=== PATIENT | female | born 2000 | race Caucasian/White ===

== ENCOUNTER 2020-08-28 15:20 | Emergency (ER) | payer MEDICARE, MEDICAID, SELFPAY ==
--- NOTE | ~2020-08-28 | XR_ITS ---
EXAMINATION: XR hand LT min 3V DATE: 08/28/2020 16:05 INDICATION: Pain at the fifth digit radiating up the left arm after punching a wall. TECHNIQUE: Posteroanterior, oblique and lateral views of the left hand were obtained. COMPARISON: None. FINDINGS: Alignment is normal. No fracture. Joint spaces are normal. Soft tissues are unremarkable. IMPRESSION: 1. Negative left hand radiographs. Reviewed, dictated and finalized at location A.
[2020-08-28 15:49] VITALS: BP 135/77; PULSE 91; RESP 20; TEMP 36.6; O2SAT 99
--- NOTE | 2020-08-28 18:00 | ED.UPPEXIN ---
HPI - Extremity Injury (Upper) General Chief Complaint: Extremity Injury, Upper Stated Complaint: left hand injury Time Seen by Provider: 08/28/20 17:20 Source: patient Mode of arrival: ambulatory Limitations: no limitations History of Present Illness HPI narrative: Patient is a 20 year old female who presents with left hand pain. She reports hitting wall instead of another individual last pm. Patient denies other injuries, denies numbness and tingling to hand. Patient has full ROM of hand and full flexion and extension of fingers. She denies taking over the counter medications prior to arrival. MD complaint: injury to: left and hand Related Data Home Medications Medication Instructions Recorded Confirmed No Home Medications 08/28/20 08/28/20 Allergies Allergy/AdvReac Type Severity Reaction Status Date / Time adhesive tape Allergy Rash Verified 08/28/20 17:18 latex Allergy Unknown Verified 08/28/20 17:18 Review of Systems Review of Systems: Narrative: CONSTITUTIONAL: Denies fever, chills, or sweats. EYES: Denies visual changes, redness, or discharge. ENT: Denies rhinorrhea, congestion, sore throat, or otalgia. CARDIOVASCULAR: Denies chest pain, palpitations, or edema. RESPIRATORY: Denies cough or dyspnea. GASTROINTESTINAL: Denies abdominal pain, nausea, vomiting, or diarrhea. GENITOURINARY: Denies dysuria or hematuria. SKIN: Denies rash or itching. MUSCULOSKELETAL: Reports left hand pain NEUROLOGIC: Denies headache, numbness, dizziness, or weakness. PSYCHIATRIC: Denies anxiety or depression. [facility] Past Medical History Medical History No significant past medical history Surgical History Surgical History No significant past surgical history Social History Social History Smoking status: Current every day smoker Tobacco type: cigarettes Alcohol intake: current Alcohol use details: occasional Substance use: current Substance use type: marijuana Living arrangements: with family Exam Narrative: Exam Narrative: GENERAL: Well-appearing, well-nourished, and in no acute distress. HEAD: Normocephalic, atraumatic. EYES: EOMI. No redness or drainage. Conjunctiva are normal. ENT: Mucous membranes pink and moist. Nares clear. No rhinorrhea. TMs normal bilaterally. Throat normal. Uvula midline. NECK: AROM. Supple. No lymphadenopathy. CHEST: No respiratory distress. Clear to auscultation. HEART: Regular rate and rhythm. No murmur appreciated. Normal peripheral pulses. GI: Soft, nontender without rebound, or guarding. No distention. Bowel sounds normal in all quadrants. MUSCULOSKELETAL: No bony tenderness. EXTREMITIES: Left Hand:Normal range of motion. Tenderness with palpation to left hand. Edema noted to dorsal left hand, full flexion-extension of fingers. Good capillary refill, distal sensation intact. SKIN: Warm, dry, no rash. NEURO: No focal deficits. Alert and oriented x3. Gait steady. PSYCH: Normal affect. No signs of depression or anxiety. Course Vital Signs Vital signs: Vital Signs Temperature 36.6 C 08/28/20 15:49 Pulse Rate 91 08/28/20 15:49 Respiratory Rate 20 08/28/20 15:49 Blood Pressure 135/77 08/28/20 15:49 Pulse Oximetry 99 08/28/20 15:49 Temperature 36.6 C 08/28/20 15:49 Pulse Rate 91 08/28/20 15:49 Respiratory Rate 20 08/28/20 15:49 Blood Pressure 135/77 08/28/20 15:49 Pulse Oximetry 99 08/28/20 15:49 Reviewed-patient is informed that they may have pre-hypertension or hypertension based on a blood pressure reading. I recommend the patient call the primary care provider listed on their discharge instructions or a physician of their choice this week to arrange follow-up for further evaluation of possible pre-hypertension or hypertension. MDM - Extremity Injury (Upp
[2020-08-28 18:33] VITALS: BP 118/82; PULSE 88; RESP 20; O2SAT 100
== END 2020-08-28 18:34 | disposition home or self-care (01) ==
PROVIDERS: Emergency Provider Nurse Practitioner
DX: S60.222A Contusion of left hand, initial encounter (principal); F17.210 Nicotine dependence, cigarettes, uncomplicated; R03.0 Elevated blood-pressure reading, without diagnosis of hypertension; W22.8XXA Striking against or struck by other objects, initial encounter
CPT/HCPCS: 73130; 99283

== ENCOUNTER 2020-10-01 19:13 | Emergency (ER) | payer MEDICARE, MEDICAID, SELFPAY ==
--- NOTE | ~2020-10-01 | CT_ITS ---
EXAMINATION: CT brain wo con DATE: 10/01/2020 21:48 INDICATION: Head injury. TECHNIQUE: Computed tomography (CT) of the head was performed without intravenous contrast. The mA wa s adjusted according to patient size. Iterative reconstruction technique was employed. The dose-lengt h product was 605.33 mGy-cm. COMPARISON: None FINDINGS: There is no intracranial hemorrhage, acute infarction, or abnormal intracranial mass lesion . The ventricles are normal in size. There is mild mucosal thickening in the ethmoid sinuses. The mas toid air cells are normal. The orbits are normal. IMPRESSION: 1. Normal brain. Reviewed, dictated and finalized at location A. IMPRESSION: 1. Normal brain.
[2020-10-01 19:57] VITALS: BP 118/66; PULSE 118; RESP 14; TEMP 36.9; O2SAT 98
--- NOTE | 2020-10-01 20:03 | ECG_ITS ---
Measurements Intervals Sikes Rate: 103 P: 242 LA: 133 QRS: 101 QRSD: 129 T: 0 QT: 349 QTc: 457 Interpretive Statements JUNCTIONAL TACHYCARDIA RIGHT AXIS DEVIATION MINIMAL Q WAVES- INFERIOR LEADS ABNORMAL ECG Electronically Signed On 10-02-2020 6:45:46 CDT by Jeffry Hall D.O.
[2020-10-01 20:21] LABS: Basophils Absolute Auto 0.1 K/mm3 (0.0-0.1); Basophils Percent Auto 0.5 % (0.2-1.2); Eosinophils Absolute Auto 0.1 K/mm3 (0-0.3); Eosinophils Percent Auto 0.4 % (0-4.4); Hematocrit 44.9 % (37.0-47.0); Hemoglobin 15.1 g/dL (12.0-15.0); Immature Granulocyte Absolute 0.05 K/mm3 (0.00-0.031); Immature Granulocyte Percent A 0.4 % (0-0.5); Lymphocytes Absolute Auto 3.53 K/mm3 (0.9-3.2); Lymphocytes Percent Auto 28.2 % (18.3-44.2); Mean Corpuscular HGB Conc 33.6 g/dl (32-36); Mean Corpuscular Hemoglobin 28.9 pg (26-34); Mean Corpuscular Volume 85.9 fl (80-100); Mean Platelet Volume 9.7 fl (7.4-10.4); Monocytes Absolute Auto 0.8 K/mm3 (0.1-0.6); Monocytes Percent Auto 6.7 % (2.6-8.5); Neutrophils Percent Auto 63.8 % (45.5-73.1); Platelet Count Result 378 k/mm3 (150-375); Red Blood Count 5.23 M/mm3 (4.2-5.4); Red Cell Distribution Width 13.1 % (11.5-14.5); White Blood Count 12.5 K/mm3 (4.5-10.0)
[2020-10-01 20:31] LABS: Anion Gap 11 mmol/L (8-16); Blood Urea Nitrogen 15 mg/dL (7-17); Calcium 10.2 mg/dL (8.4-10.2); Carbon Dioxide 27 mmol/L (22-30); Chloride 101 mmol/L (98-107); Estimated CRCL calculation 137 ml/min; Estimated Glomerular Filt Rate > 60; Glucose 99 mg/dL (65-105); Sodium 139 mmol/L (137-145)
[2020-10-01 21:15] VITALS: BP 122/76; PULSE 110; RESP 20; TEMP 36.7; O2SAT 99
--- NOTE | 2020-10-01 21:30 | ED.DIZZY ---
HPI - Dizziness General Chief Complaint: Dizziness Stated Complaint: head trauma, lethargic Time Seen by Provider: 10/01/20 21:15 Source: patient and family Mode of arrival: ambulatory Limitations: other (mute due to psychiatric disorder) History of Present Illness HPI Narrative: This is a 20 year old male who presents for evaluation of a head injury and dizziness. PAtient states he was evaluated at a psychiatric facility last week. He states that he hit his head on a wall while being at the facility. He reports he told the staff but his head injury was not addressed. He hit the front of his headache and he reports diffuse headache. His headache is associated with nausea. His uncle is at bedside to assisted with history. PAtient is also giving history via text on his phone. His uncle states patient is having difficulty focusing and dizziness. He has not taken anything for his headache. Related Data Allergies Allergy/AdvReac Type Severity Reaction Status Date / Time adhesive tape Allergy Rash Verified 08/28/20 17:18 latex Allergy Unknown Verified 08/28/20 17:18 Review of Systems Review of Systems: All systems reviewed & are unremarkable except as noted in HPI and below PMFSH Past Medical History Medical History (Updated 10/01/20 @ 23:52 by Erika Ochoa MD) Headache, acute No significant past medical history Surgical History Surgical History No significant past surgical history Social History Social History Smoking status: Current every day smoker Tobacco type: cigarettes Alcohol intake: current Alcohol use details: occasional Substance use: current Substance use type: marijuana Exam Const: General: alert Orientation/consciousness: patient oriented x3 Eyes: EOM: EOMs intact bilaterally Resp: Effort & Inspection: normal respiratory effort and no retractions Auscultation: clear to auscultation bilaterally Cardio: Rate: regular rate Rhythm: regular rhythm Heart sounds: no murmurs GI: GI Palp: Yes Soft to palpation, No Tenderness to palpation present (GI) and No Guarding due to palpation present (GI) Auscultation: normal bowel sounds Skin: General skin exam: normal color Rashes: no rashes Neuro: General: patient oriented x3, moves all extremities, no meningeal signs, no focal motor deficits and CN's II-XI intact bilaterally Cranial nerves: Yes Nystagmus not present Gait exam (Neuro): Normal gait present Other: normal finger to nose Extrem: General: normal to inspection Psych: Mental Status: mental status grossly normal Affect: normal affect Course Reevaluation(s) Reevaluation #1: Patient has been stable in ER. patien has been alert and sitting. Vitals are stable except mild tachycardia. PAtient was given 1 L IVF and they do not want to wait for an additional. Patient will follow up with PCP for evaluation of likely concussion. Date: 10/01/20 Time: 23:49 Vital Signs Vital signs: Vital Signs Temperature 98.5 F 10/01/20 19:57 Pulse Rate 118 H 10/01/20 19:57 Respiratory Rate 14 10/01/20 19:57 Blood Pressure 118/66 10/01/20 19:57 Pulse Oximetry 98 10/01/20 19:57 Temperature 98.0 F 10/01/20 21:15 Pulse Rate 95 10/02/20 00:05 Respiratory Rate 16 10/02/20 00:05 Blood Pressure 112/70 10/02/20 00:05 Pulse Oximetry 98 10/02/20 00:05 MDM - Dizziness Lab Data Attestation: I reviewed the patient's lab results. Result diagrams: 10/01/20 20:15 10/01/20 20:15 Labs: Lab Results 10/01/20 10/01/20 10/01/20 Range/Units 20:15 20:15 22:02 WBC 12.5 H (4.5-10.0) K/mm3 RBC 5.23 (4.2-5.4) M/mm3 Hgb 15.1 H (12.0-15.0) g/dL Hct 44.9 (37.0-47.0) % MCV 85.9 (80-100) fl MCH 28.9 (26-34) pg MCHC 33.6 (32-36) g/dl RDW 13.1 (11.5-14.5) % Plt Count 378
[2020-10-01] MEDS: LACTATED RINGERS 1,000 ML 999 ML IV CONT (22:30)
[2020-10-01 22:39] VITALS: PULSE 103; RESP 21; O2SAT 98
[2020-10-01 22:50] VITALS: BP 121/78; BP 122/64; BP 133/82; PULSE 101; PULSE 96; RESP 20; O2SAT 100
[2020-10-01 22:51] VITALS: BP 122/64; PULSE 96
[2020-10-01] MEDS: ONDANSETRON INJ 4 MG/2 ML VIAL IV PUSH (22:54)
[2020-10-01 23:18] LABS: D Dimer < 0.22 ug/mL (<0.48)
[2020-10-02 00:05] VITALS: BP 112/70; PULSE 95; RESP 16; O2SAT 98
--- NOTE | 2020-10-12 14:44 | PC.NURSE ---
LATE ENTRY This note is being entered to document information to the patient's record. The following information was omitted on [10/01/20], by [Corazon Leon]. NS stop time is 2330.
== END 2020-10-02 00:06 | disposition home or self-care (01) ==
PROVIDERS: Emergency Medicine; Emergency Provider General Practice; PCP Nurse Practitioner Family
DX: S06.0X0A Concussion without loss of consciousness, initial encounter (principal); F17.210 Nicotine dependence, cigarettes, uncomplicated; I47.1 Supraventricular tachycardia; W22.01XA Walked into wall, initial encounter
CPT/HCPCS: 36415; 70450; 80048; 85025; 85380; 93005; 96361; 96365; 96374; 99284; J0131; J2405; J7120

== ENCOUNTER 2020-10-05 09:57 | Emergency (ER) | payer MEDICARE, MEDICAID, SELFPAY ==
--- NOTE | ~2020-10-05 | XR_ITS ---
EXAMINATION: XR hand RT min 3V DATE: 10/05/2020 10:23 INDICATION: Right hand injury, pain, and swelling. TECHNIQUE: 3 views of right hand were obtained. COMPARISON: None. FINDINGS: Bone alignment is normal. No fracture. Joint spaces are well maintained. IMPRESSION: 1. Normal right hand. Reviewed, dictated and finalized at location A. IMPRESSION: 1. Normal right hand.
--- NOTE | ~2020-10-05 | XR_ITS ---
EXAMINATION: XR ankle RT min 3V DATE: 10/05/2020 10:23 INDICATION: Right ankle injury and pain. TECHNIQUE: 4 views of right ankle were obtained. COMPARISON: None. FINDINGS: Bone alignment is normal. No fracture. Joint spaces are well maintained. There is an enthes ophyte at posterior aspect of calcaneal tuberosity. Ankle soft tissue swelling is noted. IMPRESSION: 1. No fracture. Reviewed, dictated and finalized at location A. IMPRESSION: 1. No fracture.
[2020-10-05 10:05] VITALS: BP 142/84; PULSE 105; RESP 16; TEMP 36.9; O2SAT 98
--- NOTE | 2020-10-05 10:33 | ED.LOWEXIN ---
HPI - Extremity Injury (Lower) General Chief Complaint: Extremity Injury, Lower Stated Complaint: hand, ankle injury Time Seen by Provider: 10/05/20 10:01 Source: patient Mode of arrival: ambulatory Limitations: no limitations History of Present Illness HPI Narrative: This is a 20 year old female that presents to the ER for right ankle and hand injuries. Reports yesterday she twisted her right ankle while walking she had tripped. Reports she has night terrors due to PTSD. Reports last night she had one and thinks that she punched something. When she woke up this morning. She had swelling and pain to the right hand. Denies other injuries, or decreased ROM. Related Data Allergies Allergy/AdvReac Type Severity Reaction Status Date / Time adhesive tape Allergy Rash Verified 10/05/20 10:09 latex Allergy Unknown Verified 10/05/20 10:09 Review of Systems Review of Systems: Narrative: CONSTITUTIONAL: Denies fever MUSCULOSKELETAL: Reports joint pain, and myalgia. NEUROLOGIC: Reports numbness (patient has history of neuropathy) All systems reviewed & are unremarkable except as noted in HPI and below PMFSH Past Medical History Medical History (Updated 10/05/20 @ 10:42 by Tiffanie Peña PA-C) History of asthma PTSD (post-traumatic stress disorder) Surgical History Surgical History No significant past surgical history Social History Social History Smoking status: Current every day smoker Tobacco type: cigarettes Alcohol intake: current Alcohol use details: occasional Substance use: current Substance use type: marijuana Exam Narrative: Exam Narrative: GENERAL: Well-appearing, well-nourished, and in no acute distress. HEAD: Normocephalic, atraumatic. EYES: EOMI. EXTREMITIES: Normal range of motion. No edema or obvious deformity. Normal peripheral pulses. Tender to palpation of the metacarpal bones of the right hand. Tender to palpation of the right ankle just below the medial malleoli SKIN: Warm, dry, no rash. NEURO: No focal deficits. Alert and oriented x3. PSYCH: Normal mood and affect Course Vital Signs Vital signs: Vital Signs Temperature 98.5 F 10/05/20 10:05 Pulse Rate 105 H 10/05/20 10:05 Respiratory Rate 16 10/05/20 10:05 Blood Pressure 142/84 H 10/05/20 10:05 Pulse Oximetry 98 10/05/20 10:05 Temperature 98.5 F 10/05/20 10:05 Pulse Rate 105 H 10/05/20 10:05 Respiratory Rate 16 10/05/20 10:05 Blood Pressure 142/84 H 10/05/20 10:05 Pulse Oximetry 98 10/05/20 10:05 MDM - Extremity Injury (Lower) MDM Narrative Medical decision making narrative: Patient presents the emergency department for 2 injuries noted since yesterday. Right ankle x-ray is without acute osseous abnormalities. Patient instructed on care of ankle sprain. Right hand x-ray is also without acute osseous abnormalities. Patient instructed on care of contusion of hand. She is to follow-up with her primary care doctor. She was given warnings to return to the ER Imaging Data Radiologist's impression: ITS Impressions Hand X-Ray 10/05/20 10:25 IMPRESSION: 1. Normal right hand. Ankle X-Ray 10/05/20 10:26 IMPRESSION: 1. No fracture. Critical Care Time Critical Care Time Critical Care Time: No Discharge Plan Discharge Clinical Impression: Contusion of hand, right Qualifiers: Encounter type: initial encounter Qualified Code(s): S60.221A - Contusion of right hand, initial encounter Right ankle sprain Qualifiers: Encounter type: initial encounter Involved ligament of ankle: unspecified ligament Qualified Code(s): S93.401A - Sprain of unspecified ligament of right ankle, initial encounter Patient Disposition: Home, Self-Care Condition: Stable Instructions: Ankle Sprain (ED), Contusion in Adults (ED) Additional Instructions: Return to the emergency
[2020-10-05] MEDS: IBUPROFEN 600 MG TABLET PO (11:20)
== END 2020-10-05 11:41 | disposition home or self-care (01) ==
PROVIDERS: Emergency Provider Emergency Medicine
DX: S60.221A Contusion of right hand, initial encounter (principal); S93.401A Sprain of unspecified ligament of right ankle, initial encounter; F17.200 Nicotine dependence, unspecified, uncomplicated; W01.0XXA Fall on same level from slipping, tripping and stumbling without subsequent striking against object, initial encounter
CPT/HCPCS: 73130; 73610; 99284; A9270

== ENCOUNTER 2020-11-23 23:33 | Emergency (ER) | payer MEDICARE, MEDICAID, SELFPAY ==
[2020-11-23 23:49] VITALS: BP 128/84; PULSE 77; RESP 18; TEMP 36.6; O2SAT 98
--- NOTE | 2020-11-24 00:44 | ED.BACK ---
HPI - Back Pain/Injury General Chief Complaint: Back Pain/Injury Stated Complaint: pain in my spine Time Seen by Provider: 11/24/20 00:27 Source: patient Mode of arrival: ambulatory Limitations: no limitations History of Present Illness HPI Narrative: 20-year-old with a history of asthma with a history of asthma, PTSD here with complaints of entire back pain. Patient states that she woke up this morning with back pain. She states that she has been having issues with her back for long period of time however since this morning it has been quite aggravating. She denies any fall, or lifting any heavy objects. Related Data Allergies Allergy/AdvReac Type Severity Reaction Status Date / Time adhesive tape Allergy Rash Verified 10/05/20 10:09 latex Allergy Unknown Verified 10/05/20 10:09 Review of Systems Review of Systems: All systems reviewed & are unremarkable except as noted in HPI and below Constitutional: Constitutional: Reports no additional constitutional complaints Eyes: Eyes: Reports no additional eye complaints ENT: Reports system reviewed and no additional complaints, except as documented Cardiovascular: Cardiovascular: Reports no additional cardiovascular complaints Respiratory: Respiratory: Reports no additional respiratory complaints Gastrointestinal: Gastrointestinal: Reports no additional gastrointestinal complaints Musculoskeletal: Musculoskeletal: Reports as per HPI Integumentary/Breasts: Skin/Breast: Reports system reviewed and no additional complaints, except as docu Neurologic: Reports system reviewed and no additional complaints, except as documented PMFSH Past Medical History Medical History History of asthma PTSD (post-traumatic stress disorder) Surgical History Surgical History No significant past surgical history Social History Social History Smoking status: Current every day smoker Tobacco type: cigarettes Alcohol intake: current Alcohol use details: occasional Substance use: current Substance use type: marijuana Exam Narrative: GENERAL: Well-appearing, well-nourished, and in no acute distress. HEAD: Normocephalic, atraumatic. EYES: PERRLA and EOMI. NECK: Supple. CHEST: Clear to auscultation. No respiratory distress. HEART: Regular rate and rhythm. No murmur heard. Normal peripheral pulses. ABDOMEN: Soft, nontender, nondistended, normal active bowel sounds. EXTREMITIES: Normal range of motion. No edema. SKIN: Warm, dry, no rash. NEURO: No focal deficits. Alert and oriented x3. PSYCH: Normal mood and affect. Course Vital Signs Vital signs: Vital Signs Temperature 36.6 C 11/23/20 23:49 Pulse Rate 77 11/23/20 23:49 Respiratory Rate 18 11/23/20 23:49 Blood Pressure 128/84 11/23/20 23:49 Pulse Oximetry 98 11/23/20 23:49 Temperature 36.6 C 11/23/20 23:49 Pulse Rate 77 11/23/20 23:49 Respiratory Rate 18 11/23/20 23:49 Blood Pressure 128/84 11/23/20 23:49 Pulse Oximetry 98 11/23/20 23:49 Discharge Plan Discharge Clinical Impression: Back pain Qualifiers: Back pain location: back pain in unspecified location Chronicity: unspecified Back pain laterality: midline Qualified Code(s): M54.89 - Other dorsalgia Patient Disposition: Home, Self-Care Condition: Stable Instructions: Antibiotic Form, Back Pain (ED), Thoracic Back Strain (ED) Additional Instructions: Take pain medication as prescribed, follow-up with your primary doctor. Prescriptions: New tramadol [Ultram] 50 mg tablet 50 mg PO Q6H PRN (Reason: pain) Qty: 20 RF: 0 cyclobenzaprine 5 mg tablet 5 mg PO TID PRN (Reason: muscle spasm) Qty: 14 RF: 0 No Action ibuprofen 800 mg tablet 800 mg PO TID PRN (Reason: pain) Qty: 20 RF: 0 ondansetron 4 mg tablet,disintegrating 4
[2020-11-24 00:51] VITALS: BP 111/77; PULSE 83; RESP 12; TEMP 36.6; O2SAT 98
[2020-11-24] MEDS: CYCLOBENZAPRINE HCL 10 MG TABLET PO (00:57)
[2020-11-24] MEDS: KETOROLAC 30 MG/ML VIAL (*BKC) IM (00:58)
[2020-11-24 01:22] VITALS: BP 109/64; PULSE 81; RESP 21; O2SAT 98
== END 2020-11-24 01:25 | disposition home or self-care (01) ==
PROVIDERS: Emergency Provider Family Medicine
DX: M54.9 Dorsalgia, unspecified (principal); J45.909 Unspecified asthma, uncomplicated; F17.220 Nicotine dependence, chewing tobacco, uncomplicated
CPT/HCPCS: 96372; 99283; A9270; J1885

== ENCOUNTER 2020-11-26 16:32 | Emergency (ER) | payer MEDICARE, MEDICAID, SELFPAY ==
--- NOTE | ~2020-11-26 | XR_ITS ---
EXAMINATION: XR wrist LT min 3V DATE: 11/26/2020 17:09 INDICATION: Left wrist injury and pain and swelling. TECHNIQUE: 4 views of left wrist were obtained. COMPARISON: Left hand radiograph 08/28/2020 FINDINGS: Bone alignment is normal. No fracture. Joint spaces are well maintained. IMPRESSION: 1. Normal left wrist. Reviewed, dictated and finalized at location A. IMPRESSION: 1. Normal left wrist.
--- NOTE | ~2020-11-26 | XR_ITS ---
EXAMINATION: XR hip LT min 3V w AP pelvis DATE: 11/26/2020 17:08 INDICATION: Left hip and pelvic pain. Fall. TECHNIQUE: An anteroposterior view of the pelvis and 3 views of left hip were obtained. COMPARISON: None. FINDINGS: Bone alignment is normal. No fracture. There is mild left hip osteoarthritis. IMPRESSION: 1. Mild left hip osteoarthritis. Reviewed, dictated and finalized at location A.
[2020-11-26 16:42] VITALS: BP 124/78; PULSE 97; RESP 18; TEMP 36.6; O2SAT 98
[2020-11-26] MEDS: KETOROLAC (*BKC) 60 MG/2 ML VIAL IM (16:52)
--- NOTE | 2020-11-26 16:56 | ED.UPPEXIN ---
HPI - Extremity Injury (Upper) General Chief Complaint: Extremity Injury, Upper Stated Complaint: left wrist injury Time Seen by Provider: 11/26/20 16:38 Source: patient Mode of arrival: ambulatory Limitations: no limitations History of Present Illness HPI narrative: This is a 20 year old female that presents to the ER for injuries sustained just prior to arrival. Reports she tripped over her cat and landed on her left wrist and hip. Reports pain to the areas. Reports decreased ROM in the left wrist due to pain. Denies numbness. Related Data Home Medications Medication Instructions Recorded Confirmed aripiprazole [Abilify] 15 mg PO DAILY 11/26/20 buspirone 20 mg 11/26/20 escitalopram oxalate [Lexapro] 20 mg PO DAILY 11/26/20 Allergies Allergy/AdvReac Type Severity Reaction Status Date / Time adhesive tape Allergy Rash Verified 11/26/20 16:47 banana Allergy Anaphylaxis Verified 11/26/20 16:47 minor Allergy Rash Verified 11/26/20 16:47 latex Allergy Unknown Verified 11/26/20 16:47 pineapple Allergy Other Verified 11/26/20 16:47 Review of Systems Review of Systems: CONSTITUTIONAL: Denies fever MUSCULOSKELETAL: Reports joint pain, and myalgia. NEUROLOGIC: Denies numbness All systems reviewed & are unremarkable except as noted in HPI and below PMFSH Past Medical History Medical History History of asthma PTSD (post-traumatic stress disorder) Surgical History Surgical History No significant past surgical history Social History Social History Smoking status: Current every day smoker Tobacco type: cigarettes Alcohol intake: current Alcohol use details: occasional Substance use: current Substance use type: marijuana Exam Narrative: GENERAL: Well-appearing, well-nourished, and in no acute distress. HEAD: Normocephalic, atraumatic. EYES: EOMI. CHEST: No respiratory distress. HEART: Regular rate EXTREMITIES: Normal range of motion, except decreased ROM in the left wrist due to pain. No edema or obvious deformity. Normal peripheral pulses SKIN: Warm, dry, no rash. NEURO: No focal deficits. Alert and oriented x3. PSYCH: Normal mood and affect Course Vital Signs Vital signs: Vital Signs Temperature 97.8 F 11/26/20 16:42 Pulse Rate 97 11/26/20 16:42 Respiratory Rate 18 11/26/20 16:42 Blood Pressure 124/78 11/26/20 16:42 Pulse Oximetry 98 11/26/20 16:42 Temperature 97.8 F 11/26/20 16:42 Pulse Rate 97 11/26/20 16:42 Respiratory Rate 18 11/26/20 16:42 Blood Pressure 124/78 11/26/20 16:42 Pulse Oximetry 98 11/26/20 16:42 MDM - Extremity Injury (Upper) MDM Narrative Medical decision making narrative: Patient presents to the emergency department after an injury to the left wrist and hip today. Left wrist and hip x-rays are without acute osseous abnormalities. Patient is neurovascularly intact. Patient placed in an Abraham wrap. Patient was instructed on care of wrist pain. She is to follow-up with her primary care doctor. She was given warnings to return to the ER Imaging Data Radiologist's impression: ITS Impressions Wrist X-Ray 11/26/20 17:12 IMPRESSION: 1. Normal left wrist. Hip/Pelvis X-Ray 11/26/20 17:13 IMPRESSION: 1. Mild left hip osteoarthritis. Critical Care Time Critical Care Time Critical Care Time: No Discharge Plan Discharge Clinical Impression: Left wrist sprain Qualifiers: Encounter type: initial encounter Qualified Code(s): S63.502A - Unspecified sprain of left wrist, initial encounter Patient Disposition: Home, Self-Care Condition: Stable Instructions: Wrist Sprain (ED) Additional Instructions: Return to the emergency department if you experience fever, redness and swelling of your extremity, numbness, or any other symptoms that ar
[2020-11-26 17:49] VITALS: BP 130/70; PULSE 88; RESP 18; O2SAT 99
== END 2020-11-26 17:57 | disposition home or self-care (01) ==
PROVIDERS: Emergency Provider Emergency Medicine
DX: S63.502A Unspecified sprain of left wrist, initial encounter (principal); J45.909 Unspecified asthma, uncomplicated; F43.10 Post-traumatic stress disorder, unspecified; F17.210 Nicotine dependence, cigarettes, uncomplicated; M16.12 Unilateral primary osteoarthritis, left hip; W01.0XXA Fall on same level from slipping, tripping and stumbling without subsequent striking against object, initial encounter
CPT/HCPCS: 73110; 73502; 96372; 99284; J1885

== ENCOUNTER 2021-01-06 22:03 | Emergency (ER) | payer MEDICARE, MEDICAID, SELFPAY ==
[2021-01-06 22:14] VITALS: BP 141/80; PULSE 100; RESP 20; TEMP 36.5; O2SAT 100
[2021-01-06 22:41] LABS: Basophils Absolute Auto 0.1 K/mm3 (0.0-0.1); Basophils Percent Auto 0.4 % (0.2-1.2); Eosinophils Percent Auto 0.3 % (0-4.4); Hematocrit 41.2 % (37.0-47.0); Hemoglobin 13.8 g/dL (12.0-15.0); Immature Granulocyte Absolute 0.05 K/mm3 (0.00-0.031); Immature Granulocyte Percent A 0.4 % (0-0.5); Lymphocytes Absolute Auto 3.64 K/mm3 (0.9-3.2); Lymphocytes Percent Auto 30.7 % (18.3-44.2); Mean Corpuscular HGB Conc 33.5 g/dl (32-36); Mean Corpuscular Hemoglobin 30.1 pg (26-34); Mean Corpuscular Volume 89.8 fl (80-100); Mean Platelet Volume 9.7 fl (7.4-10.4); Monocytes Absolute Auto 0.8 K/mm3 (0.1-0.6); Monocytes Percent Auto 6.7 % (2.6-8.5); Neutrophils Absolute Auto 7.3 K/mm3 (1.3-6.7); Neutrophils Percent Auto 61.5 % (45.5-73.1); Platelet Count Result 404 k/mm3 (150-375); Red Blood Count 4.59 M/mm3 (4.2-5.4); Red Cell Distribution Width 13.7 % (11.5-14.5); White Blood Count 11.8 K/mm3 (4.5-10.0)
[2021-01-06 23:01] LABS: Alanine Aminotransferase 19 U/L (4-35); Albumin Level 4.7 g/dL (3.5-5.1); Alkaline Phosphatase 83 U/L (38-126); Anion Gap 13 mmol/L (8-16); Aspartate Amino Transferase 24 U/L (14-36); Bilirubin,Total 0.4 mg/dL (0.2-1.3); Blood Urea Nitrogen 20 mg/dL (7-17); Calcium 9.7 mg/dL (8.4-10.2); Carbon Dioxide 24 mmol/L (22-30); Chloride 106 mmol/L (98-107); Estimated CRCL calculation 149 ml/min; Estimated Glomerular Filt Rate > 60; Glucose 118 mg/dL (65-110); Lipase 48 U/L (23-300); Potassium 3.9 mmol/L (3.4-5.0); Sodium 143 mmol/L (137-145)
[2021-01-06 23:03] LABS: Add Urine Microscopic? YES; Appearance Urine Clear (Clear); Bacteria Urine Trace /hpf; Bilirubin Urine Negative (Negative); Blood Urine 2+ (Negative); Color Urine Yellow (Yellow); Glucose Urine UA Negative (Negative); Ketones Urine Negative (Negative); Leukocyte Esterase Ur Negative LEU/UL (Negative); Mucus Urine Rare /lpf; Nitrate Urine Negative (Negative); Protein Urine 1+ mg/dL (Negative); Specific Grav Ur 1.027 (1.001-1.035); Squamous Epithelial Cell Urine Many /hpf (Few); Urobilinogen Urine Negative mg/dL (<2.0); WBC Urine 0-3 /hpf
[2021-01-07] MEDS: SODIUM CHLORIDE 0.9% IV 1,000 ML 999 ML IV CONT ×2 (01:19→02:49)
[2021-01-07 01:21] VITALS: BP 128/73; PULSE 101; RESP 18; O2SAT 99
--- NOTE | 2021-01-07 01:22 | ED.GENADULT ---
HPI - General Adult General Chief complaint: Recheck/Abnormal Lab/Rx Stated complaint: ?severly dehydrated Time Seen by Provider: 01/07/21 00:47 Source: patient, RN notes reviewed and old records reviewed Mode of arrival: ambulatory Limitations: no limitations History of Present Illness HPI narrative: This is a 20 year old who presents for evaluation of near syncope and possible dehydration. Patient states today they has been feeling intermittent lightheaded. They were walking around the store when they felt like they were going to pass out . They had to lean of the shelf . They continued to feel that way today so they are worried that they are dehydrated. They have been able to eat and drink but she states she is not drinking water due to fear of water. They deny chest pain, cough, shortness of breath, nausea, vomiting, or abdominal pain. She states she feels off . She reports her extremities feel cold but her face and torso feel warm. She has significant psychiatric history. She was recently restarted on lithium. Related Data Home Medications Medication Instructions Recorded Confirmed aripiprazole [Abilify] 15 mg PO DAILY 11/26/20 buspirone 20 mg 11/26/20 escitalopram oxalate [Lexapro] 20 mg PO DAILY 11/26/20 Allergies Allergy/AdvReac Type Severity Reaction Status Date / Time adhesive tape Allergy Rash Verified 11/26/20 16:47 banana Allergy Anaphylaxis Verified 11/26/20 16:47 minor Allergy Rash Verified 11/26/20 16:47 latex Allergy Unknown Verified 11/26/20 16:47 pineapple Allergy Other Verified 11/26/20 16:47 Review of Systems Review of Systems: All systems reviewed & are unremarkable except as noted in HPI and below PMFSH Past Medical History Medical History History of asthma PTSD (post-traumatic stress disorder) Surgical History Surgical History No significant past surgical history Social History Social History Smoking status: Current every day smoker Tobacco type: cigarettes Alcohol intake: current Alcohol use details: occasional Substance use: current Substance use type: marijuana Exam Const: General: no acute distress and alert Orientation/consciousness: patient oriented x3 HENMT: Head: normocephalic and atraumatic Ears: external ears normal and TM's normal bilaterally Face and sinus: sinuses nontender, face symmetric and normal transillumination of the sinuses Mouth: Yes Normal oral and palatal mucosa present, Yes lip normal, Yes tongue normal, Yes oropharynx normal and Yes moist mucous membranes Throat: posterior oropharynx normal, tonsils normal and uvula midline Eyes: Pupils: Equal, round and reactive pupils present EOM: EOMs intact bilaterally Chest: Chest palpation & inspection: normal inspection of the chest Resp: Effort & Inspection: normal respiratory effort and no retractions Auscultation: clear to auscultation bilaterally Cardio: Rate: regular rate Rhythm: regular rhythm Heart sounds: no murmurs GI: GI Palp: Yes Soft to palpation, No Tenderness to palpation present (GI) and No Guarding due to palpation present (GI) Auscultation: normal bowel sounds Skin: General skin exam: normal color Rashes: no rashes Neuro: General: patient oriented x3, moves all extremities and CN's II-XI intact bilaterally Psych: Mental Status: mental status grossly normal Affect: normal affect Course Reevaluation(s) Reevaluation #1: PAtient states they feel better. They were hydrated. No other questions or concerns. Date: 01/07/21 Time: 04:25 Vital Signs Vital signs: Vital Signs Temperature 97.7 F 01/06/21 22:14 Pulse Rate 100 01/06/21 22:14 Respiratory Rate 20 01/06/21 22:14 Blood Pressure 141/80 H 01/06/21 22:14 Pulse Oximetry 100 01/06/21 22:14 Temperature 97.7 F 01/06/21 22:14
[2021-01-07 01:46] VITALS: BP 132/63; PULSE 85
[2021-01-07 01:47] VITALS: BP 130/78; PULSE 107
[2021-01-07 01:48] VITALS: BP 137/80; PULSE 102
[2021-01-07 02:19] LABS: Lithium < 0.2 mmol/L (0.6-1.2)
[2021-01-07] MEDS: ONDANSETRON INJ 4 MG/2 ML VIAL IV PUSH (02:49)
[2021-01-07] MEDS: MECLIZINE HCL 25 MG TABLET PO (02:49)
[2021-01-07 02:52] VITALS: BP 101/67; PULSE 102; RESP 15; O2SAT 98
== END 2021-01-07 04:47 | disposition home or self-care (01) ==
PROVIDERS: Emergency Provider General Practice
DX: R42 Dizziness and giddiness (principal); E86.0 Dehydration; F43.10 Post-traumatic stress disorder, unspecified; J45.909 Unspecified asthma, uncomplicated; F17.210 Nicotine dependence, cigarettes, uncomplicated
CPT/HCPCS: 36415; 80053; 80178; 81001; 81025; 83690; 85025; 96361; 96374; 99284; A9270; J2405; J7030

== ENCOUNTER 2021-01-30 22:17 | Emergency (ER) | payer MEDICARE, MEDICAID, SELFPAY ==
--- NOTE | ~2021-01-30 | XR_ITS ---
EXAMINATION: XR knee LT 3V EXAM DATE: 01/30/2021 23:02 INDICATION: Injury today, left knee pain, initial encounter. TECHNIQUE: Left knee frontal, crosstable lateral, orthogonal oblique projections for interpretation. There is no prior study for comparison. FINDINGS: No evidence osteochondral defect or joint body in the left knee joint. There are no acute fractures or dislocations identified. There is no subcutaneous gas. No joint effusion. There are no radiopaque foreign bodies. IMPRESSION: 1. Unremarkable XR knee LT 3V exam. Reviewed, dictated and finalized at location A. Y PLANNER
--- NOTE | 2021-01-30 22:47 | PC.NURSE ---
pt called for triage at this time, no response.
[2021-01-30 23:01] VITALS: BP 120/84; PULSE 93; RESP 18; TEMP 36.6; O2SAT 98
--- NOTE | 2021-01-30 23:09 | PC.NURSE ---
ERP aware of [place] scoring.
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
--- NOTE | 2021-01-30 23:45 | PC.NURSE ---
Pt denies SI/HI at this time states she just recently got discharged from treatment facility. Has been seeing her counselor routinely and taking medications.
--- NOTE | 2021-01-30 23:55 | PC.NURSE ---
per dr. ha, no suicide precautions needed because pt is not actively suicidal. pls see physician notes.
[2021-01-31 00:28] VITALS: BP 125/65; PULSE 85; RESP 16; O2SAT 100
== END 2021-01-31 00:28 | disposition home or self-care (01) ==
LOC: ANHED 23:42
PROVIDERS: Emergency Provider Emergency Medicine
DX: S83.92XA Sprain of unspecified site of left knee, initial encounter (principal); J45.909 Unspecified asthma, uncomplicated; F43.10 Post-traumatic stress disorder, unspecified; X50.0XXA Overexertion from strenuous movement or load, initial encounter
CPT/HCPCS: 73562; 99283

== ENCOUNTER 2021-02-06 21:29 | Emergency (ER) | payer MEDICARE, MEDICAID, SELFPAY ==
--- NOTE | ~2021-02-06 | XR_ITS ---
EXAMINATION: XR hand LT min 3V DATE: 02/06/2021 21:50 INDICATION: Left hand pain and swelling after punching a wall TECHNIQUE: Posteroanterior, oblique and lateral views of the left hand were obtained. COMPARISON: Left wrist radiographs dated 11/26/2020 and left hand radiographs dated 08/28/2020 FINDINGS: Alignment is normal. No fracture. Joint spaces are normal. Soft tissues are unremarkable. IMPRESSION: 1. Negative left hand radiographs. Reviewed, dictated and finalized at location A. UNITY RELATIONS COORDINATOR
--- NOTE | ~2021-02-06 | XR_ITS ---
EXAMINATION: XR shoulder LT min 2V DATE: 02/06/2021 21:54 INDICATION: Left shoulder popped when punching a wall. TECHNIQUE: AP internally and externally rotated, AP oblique externally rotated, axillary and transsca pular Y views of the left shoulder were obtained. COMPARISON: None FINDINGS: Normal alignment. No fracture. Glenohumeral joint is normal. Acromioclavicular joint is normal. Visu alized portions of the lungs are clear. IMPRESSION: Negative left shoulder radiographs. Reviewed, dictated and finalized at location A. CLOSER
[2021-02-06 21:35] VITALS: BP 127/60; PULSE 97; RESP 18; TEMP 36.3; O2SAT 99
--- NOTE | 2021-02-06 22:16 | ED.UPPEXIN ---
HPI - Extremity Injury (Upper) General Chief Complaint: Extremity Injury, Upper Stated Complaint: left shoulder/wrist injury Time Seen by Provider: 02/06/21 22:15 Source: patient Mode of arrival: ambulatory Limitations: no limitations History of Present Illness HPI narrative: Patient is a 20-year-old female complaining of left hand and left shoulder pain after he was having a nightmare and accidentally swung his left upper extremity and hit a wall, started prior to arrival. Severity scale (1-10): 7 Relieving factors: none Exacerbating factors: movement of extremity Associated symptoms: denies other symptoms Related Data Home Medications Medication Instructions Recorded Confirmed aripiprazole [Abilify] 15 mg PO DAILY 11/26/20 buspirone 20 mg 11/26/20 escitalopram oxalate [Lexapro] 20 mg PO DAILY 11/26/20 Allergies Allergy/AdvReac Type Severity Reaction Status Date / Time adhesive tape Allergy Rash Verified 02/06/21 21:55 banana Allergy Anaphylaxis Verified 02/06/21 21:55 minor Allergy Rash Verified 02/06/21 21:55 latex Allergy Unknown Verified 02/06/21 21:55 pineapple Allergy Other Verified 02/06/21 21:55 Review of Systems Review of Systems: All systems reviewed & are unremarkable except as noted in HPI and below PMFSH Past Medical History Medical History History of asthma PTSD (post-traumatic stress disorder) Surgical History Surgical History No significant past surgical history Social History Social History Smoking status: Current every day smoker Tobacco type: cigarettes Alcohol intake: current Alcohol use details: occasional Substance use: current Substance use type: marijuana Exam Const: General: no acute distress and alert; No ill appearing Nutritional Appearance: well nourished and obese Orientation/consciousness: patient oriented x3 Limitations: no limitations HENMT: Head: normal to inspection, normocephalic and atraumatic Ears: hearing grossly normal bilaterally, TM normal on the right and TM normal on the left General nose exam: Normal external nose present, Normal nares present and No nasal discharge present Face and sinus: normal facial exam Mouth: Yes Normal oral and palatal mucosa present, Yes lip normal, Yes tongue normal and Yes oropharynx normal Throat: posterior oropharynx normal, tonsils normal and uvula midline Eyes: General: appearance normal, both eyes and all related structures Pupils: Equal, round and reactive pupils present EOM: EOMs intact bilaterally Neck: Neck: normal visual inspection, full ROM, no lymphadenopathy and no meningeal signs Chest: Chest palpation & inspection: normal inspection of the chest Resp: Effort & Inspection: normal respiratory effort, able to speak in complete sentences, no respiratory distress and not tachypneic Auscultation: clear to auscultation bilaterally, no crackles, no rales, no rhonchi and no wheezes Cardio: Rate: regular rate Rhythm: regular rhythm GI: Inspection: normal to inspection GI Palp: No abdominal tenderness, Yes Soft to palpation, No Tenderness to palpation present (GI), No Guarding due to palpation present (GI), No Rigid due to palpation and No Rebound tenderness present Auscultation: normal bowel sounds : General: Yes no CVA tenderness Back/Spine/Pelvis: Back: no CVA tenderness Skin: General skin exam: normal color, no rashes or lesions noted, elasticity normal and turgor normal Neuro: General: oriented to person, oriented to place, oriented to time, patient oriented x3, tone normal, moves all extremities, Normal light touch and pain sensation, no meningeal signs, no focal motor deficits, CN's II-XI intact bilaterally and No confusion Cranial nerves: Yes Equal, round and reactive pupils present Speech: No Abnormal speech present Se
[2021-02-06] MEDS: CYCLOBENZAPRINE HCL 10 MG TABLET PO (23:13)
[2021-02-06] MEDS: KETOROLAC 30 MG/ML VIAL (*BKC) IM (23:13)
== END 2021-02-06 23:15 | disposition home or self-care (01) ==
PROVIDERS: Emergency Provider Emergency Medicine
DX: S60.222A Contusion of left hand, initial encounter (principal); S46.912A Strain of unspecified muscle, fascia and tendon at shoulder and upper arm level, left arm, initial encounter; J45.909 Unspecified asthma, uncomplicated; F43.10 Post-traumatic stress disorder, unspecified; F17.210 Nicotine dependence, cigarettes, uncomplicated; W22.09XA Striking against other stationary object, initial encounter
CPT/HCPCS: 73030; 73130; 96372; 99284; A4565; A9270; J1885

== ENCOUNTER 2021-02-18 01:29 | Emergency (ER) | payer MEDICARE, MEDICAID, SELFPAY ==
[2021-02-18 01:35] VITALS: BP 124/74; PULSE 110; RESP 17; TEMP 36.7; O2SAT 98
--- NOTE | 2021-02-18 01:56 | ED.GENADULT ---
HPI - General Adult General Chief complaint: Headache Stated complaint: migraine x4 days Time Seen by Provider: 02/18/21 01:36 History of Present Illness HPI narrative: Patient is a 20-year-old female that presents the emergency department with chief complaint of migraine. Patient reports she has had history of migraines before in the past reports that usually they get this bad after about a week patient states this one is in about her top 3 headaches that she has had reports that the light bothers her eyes reports has had nausea with this as well. Patient denies fever denies nuchal rigidity patient reports this is her classic presentation for headaches. Related Data Home Medications Medication Instructions Recorded Confirmed aripiprazole [Abilify] 15 mg PO DAILY 11/26/20 buspirone 20 mg 11/26/20 escitalopram oxalate [Lexapro] 20 mg PO DAILY 11/26/20 Allergies Allergy/AdvReac Type Severity Reaction Status Date / Time adhesive tape Allergy Rash Verified 02/18/21 01:38 banana Allergy Anaphylaxis Verified 02/18/21 01:38 minor Allergy Rash Verified 02/18/21 01:38 latex Allergy Unknown Verified 02/18/21 01:38 pineapple Allergy Other Verified 02/18/21 01:38 Review of Systems Review of Systems: A 10 system review of systems was completed on the patient and is negative except for what is stated in the HPI. Nursing and ancillary documentation was reviewed. PMFSH Past Medical History Medical History History of asthma PTSD (post-traumatic stress disorder) Surgical History Surgical History No significant past surgical history Social History Social History Smoking status: Current every day smoker Tobacco type: cigarettes Alcohol intake: current Alcohol use details: occasional Substance use: current Substance use type: marijuana Exam Narrative: GENERAL: Well-appearing, well-nourished, and in no acute distress. HEAD: Normocephalic, atraumatic. EYES: PERRLA and EOMI. ENT: Nares clear, no rhinorrhea or epistaxis. Mucous membranes moist. NECK: Supple. CHEST: Clear to auscultation. No respiratory distress. HEART: Regular rate and rhythm. No murmur heard. Normal peripheral pulses. ABDOMEN: Soft, nontender, nondistended, normal active bowel sounds. EXTREMITIES: Normal range of motion. No edema. SKIN: Warm, dry, no rash. NEURO: No focal deficits. Alert and oriented x3. PSYCH: Normal mood and affect. Course Vital Signs Vital signs: Vital Signs Temperature 36.7 C 02/18/21 01:35 Pulse Rate 110 H 02/18/21 01:35 Respiratory Rate 17 02/18/21 01:35 Blood Pressure 124/74 02/18/21 01:35 Pulse Oximetry 98 02/18/21 01:35 Temperature 36.7 C 02/18/21 01:35 Pulse Rate 110 H 02/18/21 01:35 Respiratory Rate 17 02/18/21 01:35 Blood Pressure 124/74 02/18/21 01:35 Pulse Oximetry 98 02/18/21 01:35 Medical Decision Making Vital Signs Vital Signs: Vital Signs Temperature 36.7 C 02/18/21 01:35 Pulse Rate 110 H 02/18/21 01:35 Respiratory Rate 17 02/18/21 01:35 Blood Pressure 124/74 02/18/21 01:35 Pulse Oximetry 98 02/18/21 01:35 Temperature 36.7 C 02/18/21 01:35 Pulse Rate 110 H 02/18/21 01:35 Respiratory Rate 17 02/18/21 01:35 Blood Pressure 124/74 02/18/21 01:35 Pulse Oximetry 98 02/18/21 01:35 Lab Data Labs: Lab Results 02/18/21 Range/Units 02:13 Urine Color Yellow (Yellow) Urine Appearance Clear (Clear) Urine pH 5.0 (5.0-9.0) Ur Specific [place] 1.026 (1.001-1.035) Urine Protein Negative (Negative) mg/dL Urine Glucose (UA) Negative (Negative) mg/dL Urine Ketones Negative (Negative) mg/dL Ur Blood (Man) 3+ H (Negative) Urine Nitrate Negative (Negative) Urine Bilirubin Negative (Negative) Urine
[2021-02-18] MEDS: SODIUM CHLORIDE 0.9% IV 1,000 ML 999 ML IV CONT (02:01)
[2021-02-18] MEDS: diphenhydrAMINE HCl INJ 50 MG/ML VIAL IV PUSH (02:02)
[2021-02-18] MEDS: KETOROLAC 30 MG/ML VIAL (*BKC) IV PUSH (02:02)
[2021-02-18] MEDS: PROCHLORPERAZINE EDISYLATE 10 MG/2 ML VIAL IV PUSH (02:02)
[2021-02-18 02:20] LABS: Add Urine Microscopic? YES; Appearance Urine Clear (Clear); Bilirubin Urine Negative (Negative); Blood Urine 3+ (Negative); Color Urine Yellow (Yellow); Glucose Urine UA Negative (Negative); Ketones Urine Negative (Negative); Leukocyte Esterase Ur Negative LEU/UL (Negative); Mucus Urine Rare /lpf; Nitrate Urine Negative (Negative); Protein Urine Negative (Negative); Specific Grav Ur 1.026 (1.001-1.035); Squamous Epithelial Cell Urine Rare /hpf (Few); Urobilinogen Urine Negative mg/dL (<2.0)
[2021-02-18 02:45] VITALS: BP 115/65; PULSE 90; RESP 17; O2SAT 100
== END 2021-02-18 02:47 | disposition home or self-care (01) ==
PROVIDERS: Emergency Provider Emergency Medicine
DX: G43.909 Migraine, unspecified, not intractable, without status migrainosus (principal); F43.10 Post-traumatic stress disorder, unspecified; J45.909 Unspecified asthma, uncomplicated; F17.210 Nicotine dependence, cigarettes, uncomplicated
CPT/HCPCS: 81001; 81025; 96361; 96374; 96375; 99284; J0780; J1200; J1885; J7030

== ENCOUNTER 2021-03-03 19:01 | Emergency (ER) | payer MEDICARE, MEDICAID, SELFPAY ==
[2021-03-03] VITALS (14 sets, daily range): BP systolic 108–133; BP diastolic 55–88; PULSE 79–103; RESP 12–20; TEMP 36.8–37; O2SAT 95–100
--- NOTE | ~2021-03-03 | XR_ITS ---
EXAMINATION: XR ankle RT min 3V INDICATION: Right ankle pain TECHNIQUE: Four views of the right ankle are obtained. COMPARISON: 10/05/2020 FINDINGS: There is no fracture, dislocation, or subluxation. The bones, soft tissues, and joint space s are normal. IMPRESSION: 1. No acute osseous abnormality. Reviewed, dictated and finalized at location A. PT GIRL
--- NOTE | ~2021-03-03 | XR_ITS ---
EXAMINATION: XR chest 1V INDICATION: Weakness/fall, tobacco use TECHNIQUE: AP view the chest is obtained. COMPARISON: None available FINDINGS: The lungs are free of acute opacities. There is no pleural effusion or pneumothorax. The ca rdiomediastinal silhouette is normal. IMPRESSION: 1. No acute cardiopulmonary abnormality. Reviewed, dictated and finalized at location A. TENANCE CUSTODIAN
--- NOTE | ~2021-03-03 | CT_ITS ---
EXAMINATION: CT brain wo con INDICATION: Transient alteration of awareness COMPARISON: 10/01/2020 TECHNIQUE: Standard unenhanced head CT. The dose-length product (DLP) was 605.33 mGy-cm. The mA was a djusted according to patient size. Iterative reconstruction technique was employed. FINDINGS: There is no intracranial hemorrhage, acute infarction, or abnormal mass lesion. The ventric les are normal. There is no abnormal mass effect or midline shift. The sierra-white matter differentiat ion is normal. The basal cisterns are patent. The orbits are normal. There is mild mucosal thickening of the paranasal sinuses. IMPRESSION: 1. No acute intracranial abnormality. Reviewed, dictated and finalized at location A. TICS FACTORY WORKER
--- NOTE | 2021-03-03 22:00 | ECG_ITS ---
Measurements Intervals [place] Rate: 82 P: 33 CO: 121 QRS: 89 QRSD: 96 T: 39 QT: 350 QTc: 409 Interpretive Statements SINUS RHYTHM WITH SHORT CO INTERVAL BASELINE ARTIFACT- V1 BORDERLINE ECG Electronically Signed On 03-05-2021 16:34:46 DIE FITTER by Jeffry Hall D.O.
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
[2021-03-03] MEDS: ONDANSETRON INJ 4 MG/2 ML VIAL IV PUSH (22:55)
[2021-03-03] MEDS: SODIUM CHLORIDE 0.9% IV 1,000 ML 999 ML IV CONT (22:56)
[2021-03-03 23:16] LABS: Basophils Absolute Auto 0.1 K/mm3 (0.0-0.1); Basophils Percent Auto 0.4 % (0.2-1.2); Eosinophils Absolute Auto 0.1 K/mm3 (0-0.3); Eosinophils Percent Auto 0.4 % (0-4.4); Hematocrit 40.4 % (37.0-47.0); Hemoglobin 13.6 g/dL (12.0-15.0); Immature Granulocyte Absolute 0.07 K/mm3 (0.00-0.031); Immature Granulocyte Percent A 0.5 % (0-0.5); Lymphocytes Absolute Auto 4.29 K/mm3 (0.9-3.2); Lymphocytes Percent Auto 28.9 % (18.3-44.2); Mean Corpuscular HGB Conc 33.7 g/dl (32-36); Mean Corpuscular Hemoglobin 29.8 pg (26-34); Mean Corpuscular Volume 88.4 fl (80-100); Monocytes Absolute Auto 0.8 K/mm3 (0.1-0.6); Monocytes Percent Auto 5.7 % (2.6-8.5); Neutrophils Absolute Auto 9.5 K/mm3 (1.3-6.7); Neutrophils Percent Auto 64.1 % (45.5-73.1); Platelet Count Result 380 k/mm3 (150-375); Red Blood Count 4.57 M/mm3 (4.2-5.4); Red Cell Distribution Width 13.3 % (11.5-14.5); White Blood Count 14.8 K/mm3 (4.5-10.0)
[2021-03-03 23:17] LABS: Add Urine Microscopic? YES; Appearance Urine Cloudy (Clear); Bilirubin Urine Negative (Negative); Blood Urine 3+ (Negative); Calcium Oxalate Crystals Urine Present /hpf; Color Urine Yellow (Yellow); Glucose Urine UA Negative (Negative); Ketones Urine 1+ mg/dL (Negative); Leukocyte Esterase Ur Negative LEU/UL (Negative); Mucus Urine Few /lpf; Nitrate Urine Negative (Negative); Protein Urine Negative (Negative); RBC Urine 21-50 /hpf (0-2); Specific Grav Ur 1.026 (1.001-1.035); Squamous Epithelial Cell Urine Many /hpf (Few); Urobilinogen Urine Negative mg/dL (<2.0)
[2021-03-03 23:21] LABS: INR 0.9; Prothrombin Time 12.2 Seconds (11.1-14.7)
[2021-03-03 23:22] LABS: Alanine Aminotransferase 18 U/L (4-35); Albumin Level 4.5 g/dL (3.5-5.1); Alkaline Phosphatase 71 U/L (38-126); Anion Gap 10 mmol/L (8-16); Aspartate Amino Transferase 23 U/L (14-36); Bilirubin,Total 0.3 mg/dL (0.2-1.3); Blood Urea Nitrogen 15 mg/dL (7-17); Calcium 9.5 mg/dL (8.4-10.2); Carbon Dioxide 24 mmol/L (22-30); Chloride 102 mmol/L (98-107); Estimated CRCL calculation 155 ml/min; Estimated Glomerular Filt Rate > 60; Glucose 88 mg/dL (65-110); Magnesium 1.8 mg/dL (1.6-2.3); Partial Thromboplastin Time 26.5 SECONDS (22.3-36.8); Potassium 3.6 mmol/L (3.4-5.0); Sodium 136 mmol/L (137-145)
[2021-03-03 23:23] LABS: Lactic Acid Reflex 0.7 mmol/L (0.7-2.1)
[2021-03-04 00:01] VITALS: BP 117/63; PULSE 89; RESP 20; O2SAT 99
[2021-03-04 00:02] VITALS: PULSE 94; RESP 20; O2SAT 99
[2021-03-04 00:15] VITALS: BP 116/66; PULSE 85; RESP 14; O2SAT 100
[2021-03-04 00:16] VITALS: PULSE 85; RESP 17; O2SAT 100
--- NOTE | 2021-03-04 00:28 | ED.GENADULT ---
HPI - General Adult General Chief complaint: Fall Stated complaint: Fall Time Seen by Provider: 03/03/21 21:54 History of Present Illness HPI narrative: Patient 21-year-old female presents the emergency department with chief complaint of near syncope. The patient reports has been feeling lightheaded reports that she has had no pain in her abdomen but feels as though she is about to pass out multiple times. Patient denies vomiting or diarrhea reports that she has pain in her right ankle after a fall that she has had recently. Patient reports that has not had any other complaints. Related Data Home Medications Medication Instructions Recorded Confirmed aripiprazole [Abilify] 15 mg PO DAILY 11/26/20 buspirone 20 mg 11/26/20 escitalopram oxalate [Lexapro] 20 mg PO DAILY 11/26/20 Allergies Allergy/AdvReac Type Severity Reaction Status Date / Time adhesive tape Allergy Rash Verified 02/18/21 01:38 banana Allergy Anaphylaxis Verified 02/18/21 01:38 minor Allergy Rash Verified 02/18/21 01:38 latex Allergy Unknown Verified 02/18/21 01:38 pineapple Allergy Other Verified 02/18/21 01:38 Review of Systems Review of Systems: A 10 system review of systems was completed on the patient and is negative except for what is stated in the HPI. Nursing and ancillary documentation was reviewed. [facility] Past Medical History Medical History History of asthma PTSD (post-traumatic stress disorder) Surgical History Surgical History No significant past surgical history Social History Social History Smoking status: Current every day smoker Tobacco type: cigarettes Alcohol intake: current Alcohol use details: occasional Substance use: current Substance use type: marijuana Exam Narrative: GENERAL: Well-appearing, well-nourished, and in no acute distress. HEAD: Normocephalic, atraumatic. EYES: PERRLA and EOMI. ENT: Nares clear, no rhinorrhea or epistaxis. Mucous membranes moist. NECK: Supple. CHEST: Clear to auscultation. No respiratory distress. HEART: Regular rate and rhythm. No murmur heard. Normal peripheral pulses. ABDOMEN: Soft, nontender, nondistended, normal active bowel sounds. EXTREMITIES: Normal range of motion. No edema. Tenderness to palpation of the right ankle SKIN: Warm, dry, no rash. NEURO: No focal deficits. Alert and oriented x3. PSYCH: Normal mood and affect. Course Course Emergency Course: Chest x-ray shows no focal abnormality Right ankle x-ray shows no evidence of fracture CT head read by statrad shows no evidence of acute abnormality Patient had a positive urine test On acute of hCG test is positive and shows a level of 24,039 Vital Signs Vital signs: Vital Signs Temperature 37.0 C 03/03/21 19:18 Pulse Rate 97 03/03/21 19:18 Respiratory Rate 18 03/03/21 19:18 Blood Pressure 133/72 03/03/21 19:18 Pulse Oximetry 100 03/03/21 19:18 Temperature 36.8 C 03/03/21 21:32 Pulse Rate 80 03/03/21 22:16 Respiratory Rate 19 03/03/21 22:16 Blood Pressure 111/65 03/03/21 22:16 Pulse Oximetry 97 03/03/21 22:16 Medical Decision Making Vital Signs Vital Signs: Vital Signs Temperature 37.0 C 03/03/21 19:18 Pulse Rate 97 03/03/21 19:18 Respiratory Rate 18 03/03/21 19:18 Blood Pressure 133/72 03/03/21 19:18 Pulse Oximetry 100 03/03/21 19:18 Temperature 36.8 C 03/03/21 21:32 Pulse Rate 80 03/03/21 22:16 Respiratory Rate 19 03/03/21 22:16 Blood Pressure 111/65 03/03/21 22:16 Pulse Oximetry 97 03/03/21 22:16 Lab Data Result diagrams: 03/03/21 23:02 03/03/21 23:02 Labs: Lab Results 03/03/21 03/03/21 03/03/21 Range/Units 23:02 23:02 23:02 WBC 14.8 H (4.5-10.0) K/mm3 RBC 4.5
[2021-03-04 01:13] VITALS: TEMP 36.7
== END 2021-03-04 01:15 | disposition home or self-care (01) ==
PROVIDERS: Emergency Provider Emergency Medicine
DX: O9A.219 Injury, poisoning and certain other consequences of external causes complicating pregnancy, unspecified trimester (principal); S93.401A Sprain of unspecified ligament of right ankle, initial encounter; R55 Syncope and collapse; O99.330 Smoking (tobacco) complicating pregnancy, unspecified trimester; F17.210 Nicotine dependence, cigarettes, uncomplicated; W19.XXXA Unspecified fall, initial encounter
CPT/HCPCS: 36415; 70450; 71045; 73610; 80053; 81001; 81025; 83605; 83735; 84702; 85025; 85610; 85730; 93005; 96361; 96374; 99284; J2405; J7030

== ENCOUNTER 2021-03-24 18:08 | Emergency (ER) | payer MEDICARE, MEDICAID, SELFPAY ==
--- NOTE | ~2021-03-24 | XR_ITS ---
EXAMINATION: XR toe 5th RT min 2V EXAM DATE: 03/24/2021 18:32 INDICATION: Stubbed right 5th toe last night, pain. TECHNIQUE: Right 5th toe frontal, lateral and oblique projections obtained and reviewed. There is no prior study for comparison. FINDINGS: Congenitally conjoined mid and distal phalanges. There are no acute right 5th toe fractures or dislocations identified. There is no subcutaneous gas. The soft tissue is unremarkable. There are no radiopaque foreign bodies. IMPRESSION: 1. Right 5th toe exam without acute osseous findings. Reviewed, dictated and finalized at location A. [facility] ME[facility]UR[facility]
[2021-03-24 18:09] VITALS: BP 116/72; PULSE 119; RESP 20; TEMP 36.2; O2SAT 99
--- NOTE | 2021-03-24 18:31 | ED.LOWEXIN ---
HPI - Extremity Injury (Lower) General Chief Complaint: Extremity Injury, Lower Stated Complaint: possible broken toe Time Seen by Provider: 03/24/21 18:31 Source: patient Mode of arrival: ambulatory Limitations: no limitations History of Present Illness HPI Narrative: This is a 21 year old female that presents to the ER for right 5th toe injury sustained last night. Reports she accidentally hit her toe on her ottoman in the middle of the night. Reports swelling and pain to the area. Denies decreased range of motion or numbness. Related Data Home Medications Medication Instructions Recorded Confirmed aripiprazole [Abilify] 15 mg PO DAILY 11/26/20 buspirone 20 mg 11/26/20 escitalopram oxalate [Lexapro] 20 mg PO DAILY 11/26/20 Allergies Allergy/AdvReac Type Severity Reaction Status Date / Time adhesive tape Allergy Rash Verified 03/24/21 18:23 banana Allergy Anaphylaxis Verified 03/24/21 18:23 minor Allergy Rash Verified 03/24/21 18:23 latex Allergy Unknown Verified 03/24/21 18:23 pineapple Allergy Other Verified 03/24/21 18:23 Review of Systems Review of Systems: CONSTITUTIONAL: Denies fever MUSCULOSKELETAL: Reports joint pain, and myalgia. All systems reviewed & are unremarkable except as noted in HPI and below PMFSH Past Medical History Medical History History of asthma PTSD (post-traumatic stress disorder) Surgical History Surgical History No significant past surgical history Social History Social History Smoking status: Current every day smoker Tobacco type: cigarettes Alcohol intake: current Alcohol use details: occasional Substance use: current Substance use type: marijuana Exam Narrative: GENERAL: Well-appearing, well-nourished, and in no acute distress. HEAD: Normocephalic, atraumatic. EYES: EOMI. EXTREMITIES: Normal range of motion. No edema or obvious deformity. Normal DP pulses SKIN: Warm, dry, no rash. NEURO: No focal deficits. Alert and oriented x3. PSYCH: Normal mood and affect Course Vital Signs Vital signs: Vital Signs Temperature 97.1 F L 03/24/21 18:09 Pulse Rate 119 H 03/24/21 18:09 Respiratory Rate 20 03/24/21 18:09 Blood Pressure 116/72 03/24/21 18:09 Pulse Oximetry 99 03/24/21 18:09 Temperature 97.1 F L 03/24/21 18:09 Pulse Rate 119 H 03/24/21 18:09 Respiratory Rate 20 03/24/21 18:09 Blood Pressure 116/72 03/24/21 18:09 Pulse Oximetry 99 03/24/21 18:09 MDM - Extremity Injury (Lower) MDM Narrative Medical decision making narrative: Patient presents emergency department for right fifth toe injury sustained last night. Patient is neurovascularly intact. Right fifth toe x-ray without acute osseous abnormalities. Patient placed in a postop shoe for comfort. Instructed to rest, ice and take Tylenol as needed for pain. She is to follow-up with her primary care doctor. She was given warnings to return to the ER Imaging Data Radiologist's impression: ITS Impressions Toe X-Ray 03/24/21 18:33 IMPRESSION: 1. Right 5th toe exam without acute osseous findings. Critical Care Time Critical Care Time Critical Care Time: No Discharge Plan Discharge Clinical Impression: Contusion of fifth toe, right Qualifiers: Encounter type: initial encounter Qualified Code(s): S90.121A - Contusion of right lesser toe(s) without damage to nail, initial encounter Patient Disposition: Home, Self-Care Condition: Stable Instructions: Contusion in Adults (ED) Additional Instructions: Return to the emergency department if you experience fever, redness and swelling of your leg, numbness, or any other symptoms that are concerning to you Rest. Elevate. Ice to the area. Tylenol as needed for pain Follow-up with your jacquelin
[2021-03-24] MEDS: ACETAMINOPHEN 500 MG TABLET 1000 MG PO (18:35)
== END 2021-03-24 18:56 | disposition home or self-care (01) ==
LOC: ANHED 18:54
PROVIDERS: Emergency Provider Emergency Medicine; PCP Student in an Organized Health Care Education/Training Program
DX: S90.121A Contusion of right lesser toe(s) without damage to nail, initial encounter (principal); J45.909 Unspecified asthma, uncomplicated; F17.200 Nicotine dependence, unspecified, uncomplicated; W22.03XA Walked into furniture, initial encounter
CPT/HCPCS: 73660; 99283; A9270

== ENCOUNTER 2021-03-29 01:16 | Day surgery (SDC) | payer MEDICARE, MEDICAID, SELFPAY ==
[2021-03-27 10:30] VITALS: BMI 40.2
--- NOTE | 2021-03-27 10:45 | PC.NURSE ---
Report to the Outpatient Waiting Room, entrance under the green pavilion located off [facility], at time 0900 on date 03/29/21. OR Time: 1100. - You and your visitor will be asked a series of questions to screen for COVID 19 for your protection. - A mask is required within the hospital. - Only one visitor is allowed at this time. Patient visitors will be guided where to wait when not with patient. Preoperative COVID Testing Requirements: TO BRING COVID CARD No COVID Test needed if: (proof is required; if not received patient will have Rapid Test prior to entry) - Patient has received COVID Vaccine at least 14 days prior to procedure date or - Patient has positive COVID test result within last 90 days of surgery date. COVID Test needed if above criteria is not met If not COVID vaccinated a COVID test must be conducted within 72 hours of surgery and patient is asked to isolate self from time of testing until procedure. You will go to the [facility] for your COVID testing. The [facility] is located at the corner of [address] from [facility]. You will only be called if COVID results are positive and your surgeon may reschedule your elective surgery date. Patients may have clear liquids (water, carbonated beverages, clear teas, apple juice) until 3 hours prior to surgery with a maximum of 20 ounces. - No food from midnight until time of surgery Take the following medications with a SIP of water the morning of surgery: LEXAPRO Medications to discontinue per physician: N/A Date to take last dose: N/A Please no make-up, nail cymro, hairspray, perfume, deodorant, or body powder the day of surgery. No jewelry (including any body piercings) or valuables the day of surgery, leave them at home. Please take a shower or bath the night before, or the morning of, surgery with an antibacterial soap. Wear comfortable, loose fitting clothing. - Jewelry must be removed prior to entering the operating room. Rings and piercings that are not removed may be cut off. - The hospital will not accept responsibility for valuables. - Please leave all valuables, including medications, at home the day of surgery. If you are going home after surgery, a licensed oil transport driver must drive you home. - NO public transportation without another adult. - We recommend that an adult stay with you for 24 hours following discharge. - We also recommend that you do not drive, make important decision, drink alcoholic beverages, or take any drugs that were not prescribed by your health care provider for at least 24 hours after your discharge time. Follow any additional instructions given to you from your surgeon. Telephone instructions given to MARTINEZ COLVIN and asked if any additional questions and then verbalized understanding. Patient advised to call surgeon office or pre surgery nurse liaison [phone] if any additional questions.
--- NOTE | 2021-03-28 10:48 | PM.IMHP ---
H&P: HPI History of Present Illness Date/Time: 03/28/21 10:48 Chief Complaint: early loss Narrative: 21 yo who presents for suction D&C for early loss. Pt was seen in the office for viability US that showed an IUP with no cardiac activity. Pt had had a previous US that showed an IUP with FCA. Pt denies any vaginal bleeding, abdominal pain, fevers, chills, nausea, vomiting. Review of Systems Cardiovascular: Cardiovascular: Denies chest pain, Denies leg edema, Denies palpitations, Denies dyspnea and Denies dyspnea on exertion Respiratory: Respiratory: Denies cough, Denies dyspnea and Denies dyspnea on exertion Gastrointestinal: Gastrointestinal: Denies abdominal pain, Denies constipation, Denies diarrhea, Denies nausea and Denies vomiting Genitourinary: Genitourinary: Denies hematuria, Denies urinary frequency, Denies dysuria, Denies pelvic pain, Denies urinary incontinence and Denies vaginal discharge Neurologic: Reports system reviewed and no additional complaints, except as documented Psychiatric: Psychiatric: Reports no additional psychiatric complaints Endocrine: Endocrine: Denies palpitations PMFSH Past Medical History Medical History History of asthma PTSD (post-traumatic stress disorder) Surgical History Surgical History No significant past surgical history Social History Social History Smoking packs per day: 0.5 Smoking cigarettes per day: 10.0 Years smoked: 14 Smoking pack-years: 7.00 Smoking status: Current every day smoker Tobacco type: cigarettes Alcohol intake: current Alcohol use details: SOCIAL Substance use: current Substance use type: marijuana Other substance usage details: 2-3 1 HITTERS OR A COUPLE PIPES/DAY Living arrangements: with family Spiritual care concerns: No Meds Home Medications and Allergies Home Medications Medication Instructions Recorded Confirmed Type escitalopram oxalate [Lexapro] 10 mg PO DAILY 11/26/20 03/27/21 History lurasidone [Latuda] 40 mg PO HS 03/27/21 03/27/21 History Allergies Allergy/AdvReac Type Severity Reaction Status Date / Time adhesive tape Allergy Rash Verified 03/27/21 10:28 banana Allergy Anaphylaxis Verified 03/27/21 10:28 minor Allergy Rash Verified 03/27/21 10:28 cranberry Allergy Rash Verified 03/27/21 10:28 latex Allergy Rash Verified 03/27/21 10:28 pineapple Allergy Rash Verified 03/27/21 10:28 Exam Const: General: no acute distress Eyes: EOM: EOMs intact bilaterally Neck: Neck: supple Thyroid: thyroid normal Chest: Breast/axilla inspection: normal inspection of the breasts Breast/axilla palpation: normal palpation of the breasts, normal palpation of the axillae and no axillary lymphadenopathy Resp: Effort & Inspection: normal respiratory effort Auscultation: clear to auscultation bilaterally Cardio: Rate: regular rate Rhythm: regular rhythm GI: Inspection: non-distended GI Palp: Yes Soft to palpation, No Tenderness to palpation present (GI) and No Guarding due to palpation present (GI) Auscultation: normal bowel sounds : General: No bladder normal to palpation External Female Exam: normal external appearance Speculum Exam - Vagina: normal vaginal discharge and No vaginal bleeding Speculum Exam - Cervix: nontender Bimanual exam- vagina & uterus: No bladder normal to palpation and No Cervical tenderness present OB/external & speculum: No vaginal bleeding Skin: General skin exam: normal color and no rashes or lesions noted Neuro: Cognition (Neuro): normal cognition Speech: normal speech Extrem: General: normal to inspection and no edema Psych: Mental Status: mental status grossly normal Affect: normal affect Assessment and Plan Assessment and plan (1) Sponta
--- NOTE | 2021-03-29 09:46 | P.PNAN_ITS ---
Anes - Initial Pre Proc Eval Procedure: Operation Date: 03/29/21 11:00 Proposed Procedures p Suction Dilation and Curettage - Sumeet Merlos MD Date/Time: 03/29/21 09:46 Surgeon: Sumeet Merlos MD Pre Op Diagnosis: missed AB Patient Data Age: 21 Gender: F Height: 1.65 m Weight: 109.77 kg Allergies Allergy/AdvReac Type Severity Reaction Status Date / Time adhesive tape Allergy Rash Verified 03/27/21 10:28 banana Allergy Anaphylaxis Verified 03/27/21 10:28 minor Allergy Rash Verified 03/27/21 10:28 cranberry Allergy Rash Verified 03/27/21 10:28 latex Allergy Rash Verified 03/27/21 10:28 pineapple Allergy Rash Verified 03/27/21 10:28 Home Medications Medication Instructions Recorded Confirmed Type escitalopram oxalate [Lexapro] 10 mg PO DAILY 11/26/20 03/27/21 History lurasidone [Latuda] 40 mg PO HS 03/27/21 03/27/21 History Patient hx anesthesia problems: none and other (agitation on awakening) Family hx anesthesia problems: none Results Review: All pre-operative results and documents have been reviewed as part of the pre-operative evaluation. [facility] Past Medical History Medical History Anxiety Bipolar disorder Depression with anxiety History of asthma Hx of migraines Neuropathy Pseudoseizures PTSD (post-traumatic stress disorder) Surgical History Surgical History No significant past surgical history Social History Social History Smoking packs per day: 0.5 Smoking cigarettes per day: 10.0 Years smoked: 14 Smoking pack-years: 7.00 Smoking status: Current every day smoker Tobacco type: cigarettes Alcohol intake: current Alcohol use details: SOCIAL Substance use: current Substance use type: marijuana Other substance usage details: 2-3 1 HITTERS OR A COUPLE PIPES/DAY Living arrangements: with family Spiritual care concerns: No Anes - Eval Final PreProcedure Day of Procedure 03/29/21 09:46 Patient weight: morbidly obese Heart: regular rate and rhythm Lungs: decreased breath sounds Airway: Mallampati scale class II Neurological: alert and oriented Last oral intake: >/= 8 hours ASA classification: III Emergent: no Anesthetic plan: proceed Anesthesia type and monitoring: general GIVS and standard monitoring Results Review: All pre-operative results and documents have been reviewed as part of the pre-operative evaluation. Informed Consent: The patient's anesthetic plan and its attendant risks and benefits were discussed with the patient/family/POA. Questions were solicited and answers provided to the satisfaction of the patient/family/POA.
[2021-03-29] MEDS: ACETAMINOPHEN 500 MG TABLET 1000 MG PO (10:28)
[2021-03-29 10:37] VITALS: BP 120/73; PULSE 102; RESP 20; TEMP 36.6; O2SAT 98
[2021-03-29 10:38] VITALS: BMI 39.6
--- NOTE | 2021-03-29 10:38 | SUR.PREOP ---
pt reports he is suicidal, and checking self into mental health facility on friday. Mother at bedside
[2021-03-29] MEDS: LACTATED RINGERS 1,000 ML 30 ML IV CONT (10:51)
--- NOTE | 2021-03-29 10:58 | WPDHPUPDATE1 ---
History and Physical Update Update Date/Time: 03/29/21 10:58 History and Physical has been reviewed, including an updated exam of the patient. There are NO changes in the patient's condition. Risks, benefits, and alternatives have been discussed and questions answered. Patient agrees to proceed with procedure.
[2021-03-29] MEDS: DOXYCYCLINE IV 100 MG in SODIUM CHLORIDE 0.9% IV 100 ML IVPB (11:11)
--- NOTE | 2021-03-29 11:13 | SUR.PREOP ---
1100; NOTIFIED MILLA PROCESS CONTROL TECH OF PT REPORTS SUICIDAL AND WAKING UP COMBATIVE, WANT MOTHER WITH HIM UPON AWAKING IN [place].
--- NOTE | 2021-03-29 11:30 | W.PM.PROC2 ---
Procedure Note - Detailed Date of Procedure 03/29/21 Pre-op Diagnosis early loss Post-op Diagnosis same Procedure Performed Suction Dilation & curettage Surgeon Sumeet Merlos MD Anesthesia general Indications spontaneous missed on pelvic US Findings intrauterine products of conception Description of Procedure The patient was taken to the operating room after a missed had been noted on on transvaginal ultrasound. The risks, benefits and alternatives of the procedure were reviewed with the patient and informed consent was obtained. The patient was taken to the OR and anesthesia was noted to be adequate. The patient was placed in the dorsolithotomy position. Pelvic exam was performed with findings noted above. The patient was prepped and draped in the usual sterile fashion. Sterile speculum was placed in the vagina and the cervix was grasped with a tenaculum. The cervix was dilated further to allow for passage of a 8 mm suction curette. The 8 mm suction curette was gently advanced to the fundus, suction was activated, and the tip was rotated while being withdrawn to clear the uterus of products. This suction process was repeated 3 additional times due to the quantity of material in the uterus. The sharp curette was introduced and advanced to the fundus to remove any remaining products. The suction curette was reintroduced one final time to ensure all products had been removed. The tenaculum was removed. Good hemostasis was noted. Instrument, sponge, and sharp counts were correct. Patient tolerated the procedure well and was taken to the recovery room in stable condition. Estimated Blood Loss 25 Drains No Packing No Pathology yes (products of conception ) Complications No immediate complications Condition stable Disposition PACU
[2021-03-29 11:35] VITALS: BP 123/69; PULSE 92; RESP 18; O2SAT 96
[2021-03-29 12:05] VITALS: BP 118/68; PULSE 74; RESP 16
[2021-03-29] MEDS: fentaNYL CITRATE INJ (*CRX) 100 MCG/2 ML VIAL 25 MCG IV PUSH ×2 (12:13→12:15)
[2021-03-29 12:35] VITALS: BP 106/61; PULSE 87; RESP 16
[2021-03-29] MEDS: KETOROLAC 30 MG/ML VIAL (*BKC) IV PUSH (12:50)
[2021-03-29 13:05] VITALS: BP 117/61; PULSE 85; RESP 16
== END 2021-03-29 13:37 | disposition home or self-care (01) ==
PROVIDERS: Visit Provider Student in an Organized Health Care Education/Training Program
PROC: (CPT 59820; principal; 2021-03-29 11:00)
DX: O02.1 Missed abortion (principal); F31.9 Bipolar disorder, unspecified; F41.9 Anxiety disorder, unspecified; F17.210 Nicotine dependence, cigarettes, uncomplicated; F12.90 Cannabis use, unspecified, uncomplicated; Z3A.00 Weeks of gestation of pregnancy not specified; Z78.9 Other specified health status
CPT/HCPCS: 59820; 36415; 85461; 88305; A9270; J1885; J2250; J2704; J3010; J7120

== ENCOUNTER 2021-04-27 22:59 | Emergency (ER) | payer MEDICARE, MEDICAID, SELFPAY ==
--- NOTE | ~2021-04-27 | XR_ITS ---
EXAMINATION: XR hand RT min 3V EXAM DATE: 04/27/2021 23:25 INDICATION: Right hand pain, punched wall. TECHNIQUE: Right hand frontal, lateral and oblique projections obtained and reviewed. Comparison is m ingrid to prior examination from 02/05/2021. FINDINGS: Right metacarpal bones are unremarkable. There are no acute fractures or dislocations iden tified. There is no subcutaneous gas. The soft tissue is unremarkable. There are no radiopaque fo reign bodies. IMPRESSION: 1. Right hand exam without acute osseous findings. Reviewed, dictated and finalized at location [facility]. [facility]HOUSE ASSOCIATE
[2021-04-27 23:05] VITALS: BP 133/83; PULSE 93; RESP 18; TEMP 36.6; O2SAT 100
--- NOTE | 2021-04-27 23:24 | ED.UPPEXIN ---
HPI - Extremity Injury (Upper) General Chief Complaint: Extremity Injury, Upper Stated Complaint: ptsd Time Seen by Provider: 04/27/21 23:14 Source: patient Mode of arrival: ambulatory Limitations: no limitations History of Present Illness HPI narrative: Patient is a 21-year-old male complain right hand pain, 6 out of 10, dull, aching, nonradiating started tonight after punching a wall. Patient denies any other pain or injury. Patient denies any numbness, weakness or tingling of his extremity. Related Data Home Medications Medication Instructions Recorded Confirmed escitalopram oxalate [Lexapro] 10 mg PO DAILY 11/26/20 03/29/21 Latuda 40 mg PO HS 03/27/21 03/29/21 Allergies Allergy/AdvReac Type Severity Reaction Status Date / Time adhesive tape Allergy Rash Verified 03/29/21 10:06 banana Allergy Anaphylaxis Verified 03/29/21 10:06 minor Allergy Rash Verified 03/29/21 10:06 cranberry Allergy Rash Verified 03/29/21 10:06 latex Allergy Rash Verified 03/29/21 10:06 pineapple Allergy Rash Verified 03/29/21 10:06 Review of Systems Review of Systems: Per HPI All systems reviewed & are unremarkable except as noted in HPI and below PMFSH Past Medical History Medical History Anxiety Bipolar disorder Depression with anxiety History of asthma Hx of migraines Neuropathy Pseudoseizures PTSD (post-traumatic stress disorder) Surgical History Surgical History No significant past surgical history Social History Social History Smoking packs per day: 0.5 Smoking cigarettes per day: 10.0 Years smoked: 14 Smoking pack-years: 7.00 Smoking status: Current every day smoker Tobacco type: cigarettes Alcohol intake: current Alcohol use details: SOCIAL Substance use: current Substance use type: marijuana Other substance usage details: 2-3 1 HITTERS OR A COUPLE PIPES/DAY Gender identity (if verbalized by the patient): Transgender Male Sexual Orientation (if Verbalized by the Patient): Lesbian, Mora, or Homosexual Spiritual care concerns: No Exam Const: General: no acute distress and alert Orientation/consciousness: patient oriented x3 HENMT: Head: normal to inspection Eyes: Conjunctivae: conjunctivae normal Neck: Neck: normal visual inspection Resp: Effort & Inspection: normal respiratory effort Skin: General skin exam: normal color Extrem: Other: Negative for any deformity, mild swelling, pain on range of motion, tenderness on palpation, neurovascular is intact Course Vital Signs Vital signs: Vital Signs Temperature 36.6 C 04/27/21 23:05 Pulse Rate 93 04/27/21 23:05 Respiratory Rate 18 04/27/21 23:05 Blood Pressure 133/83 04/27/21 23:05 Pulse Oximetry 100 04/27/21 23:05 Temperature 36.6 C 04/27/21 23:05 Pulse Rate 93 04/27/21 23:05 Respiratory Rate 18 04/27/21 23:05 Blood Pressure 133/83 04/27/21 23:05 Pulse Oximetry 100 04/27/21 23:05 Discharge Plan Discharge Clinical Impression: Contusion of hand, right Qualifiers: Encounter type: initial encounter Qualified Code(s): S60.221A - Contusion of right hand, initial encounter Patient Disposition: Home, Self-Care Condition: Improved Instructions: Contusion in Adults (ED) Prescriptions: No Action Latuda 40 mg tablet 40 mg PO HS RF: 0 acetaminophen 500 mg capsule 500 mg PO Q6H PRN (Reason: pain) Qty: 30 RF: 0 ibuprofen 600 mg tablet 600 mg PO Q6H PRN (Reason: pain) Qty: 30 RF: 0 escitalopram oxalate [Lexapro] 20 mg Tablet 10 mg PO DAILY RF: 0 Follow-up/Referrals: PHYSICIAN,SENIOR ANALYTIC CONSULTANT [Primary Care Provider] - Time of Disposition: 23:54
[2021-04-28] MEDS: IBUPROFEN 600 MG TABLET PO (00:12)
== END 2021-04-28 00:45 | disposition home or self-care (01) ==
PROVIDERS: Emergency Provider Emergency Medicine
DX: S60.221A Contusion of right hand, initial encounter (principal); J45.909 Unspecified asthma, uncomplicated; G62.9 Polyneuropathy, unspecified; F41.9 Anxiety disorder, unspecified; F31.9 Bipolar disorder, unspecified; F43.10 Post-traumatic stress disorder, unspecified; F17.210 Nicotine dependence, cigarettes, uncomplicated; W22.09XA Striking against other stationary object, initial encounter
CPT/HCPCS: 73130; 99283; A9270

== ENCOUNTER 2021-04-30 18:46 | Emergency (ER) | payer MEDICARE, MEDICAID, SELFPAY ==
--- NOTE | ~2021-04-30 | CT_ITS ---
EXAMINATION: CT brain wo con DATE: 04/30/2021 20:52 INDICATION: Dizziness. Syncope. TECHNIQUE: Computed tomography (CT) of the head was performed without intravenous contrast. The mA wa s adjusted according to patient size. Iterative reconstruction technique was employed. The dose-lengt h product was 605.33 mGy-cm. COMPARISON: Head CT 03/03/2021 FINDINGS: There is no intracranial hemorrhage, acute infarction, or abnormal intracranial mass lesion . The ventricles are normal in size. There is mild mucosal thickening in the paranasal sinuses. The m astoid air cells are normal. The orbits are normal. IMPRESSION: 1. Normal brain. Reviewed, dictated and finalized at location E. HIATRIC MENTAL HEALTH NURSE IMPRESSION: 1. Normal brain.
[2021-04-30 18:50] VITALS: BP 115/69; PULSE 120; RESP 18; TEMP 37.8; O2SAT 98
--- NOTE | 2021-04-30 20:31 | ECG_ITS ---
Measurements Intervals Rea Rate: 84 P: 27 SD: 119 QRS: 84 QRSD: 92 T: 52 QT: 357 QTc: 424 Interpretive Statements SINUS RHYTHM WITH SHORT SD INTERVAL POSSIBLE LEFT ATRIAL ENLARGEMENT MINIMAL Q WAVES- INFERIOR LEADS BASELINE ARTIFACT- I, III BORDERLINE ECG Electronically Signed On 05-01-2021 6:11:12 SEA CAPTAIN by Jeffry Hall D.O.
[2021-04-30] MEDS: SODIUM CHLORIDE 0.9% IV 1,000 ML 999 ML IV CONT (20:35)
--- NOTE | 2021-04-30 20:36 | ED.GENADULT ---
HPI - General Adult General Chief complaint: Syncope Stated complaint: lightheaded, nausea, vomiting Time Seen by Provider: 04/30/21 20:11 Source: patient History of Present Illness HPI narrative: Patient is a 21 y/o complaining of light-headedness, nausea and vomiting starting 2-3 hours ago. There is no known alleviating or exacerbating factor. She states that she may have passed out a couple of times. She has no headache or chest pain. Related Data Home Medications Medication Instructions Recorded Confirmed escitalopram oxalate [Lexapro] 10 mg PO DAILY 11/26/20 03/29/21 Latuda 40 mg PO HS 03/27/21 03/29/21 Allergies Allergy/AdvReac Type Severity Reaction Status Date / Time adhesive tape Allergy Rash Verified 04/30/21 18:49 banana Allergy Anaphylaxis Verified 04/30/21 18:49 minor Allergy Rash Verified 04/30/21 18:49 cranberry Allergy Rash Verified 04/30/21 18:49 latex Allergy Rash Verified 04/30/21 18:49 pineapple Allergy Rash Verified 04/30/21 18:49 Review of Systems Constitutional: Constitutional: Denies chills, Denies fever(s), Denies headache(s) and Denies weakness Eyes: Eyes: Denies blurry vision ENT: Denies headache(s) and Denies neck pain Cardiovascular: Cardiovascular: Denies chest pain and Denies dyspnea Respiratory: Respiratory: Denies cough and Denies dyspnea Gastrointestinal: Gastrointestinal: Denies abdominal pain, Denies diarrhea, Reports nausea and Reports vomiting Genitourinary: Genitourinary: Denies hematuria and Denies dysuria Musculoskeletal: Musculoskeletal: Denies back pain and Denies neck pain Neurologic: Reports dizziness, Reports syncope, Denies headache(s) and Denies weakness [facility] Past Medical History Medical History Anxiety Bipolar disorder Depression with anxiety History of asthma Hx of migraines Neuropathy Pseudoseizures PTSD (post-traumatic stress disorder) Surgical History Surgical History No significant past surgical history Social History Social History Smoking packs per day: 0.5 Smoking cigarettes per day: 10.0 Years smoked: 14 Smoking pack-years: 7.00 Smoking status: Current every day smoker Tobacco type: cigarettes Alcohol intake: current Alcohol use details: SOCIAL Substance use: current Substance use type: marijuana Other substance usage details: 2-3 1 HITTERS OR A COUPLE PIPES/DAY Gender identity (if verbalized by the patient): Transgender Male Sexual Orientation (if Verbalized by the Patient): Lesbian, Mora, or Homosexual Spiritual care concerns: No Exam Const: General: no acute distress and well developed Orientation/consciousness: oriented to person, oriented to place, oriented to time and patient oriented x3 HENMT: Head: normocephalic Ears: external ears normal General nose exam: Normal external nose present Eyes: General: appearance normal, both eyes and all related structures Conjunctivae: conjunctivae normal Neck: Neck: normal visual inspection and full ROM Chest: Chest palpation & inspection: normal inspection of the chest and no tenderness Resp: Effort & Inspection: normal respiratory effort Auscultation: clear to auscultation bilaterally Cardio: Rate: regular rate Rhythm: regular rhythm GI: GI Palp: No abdominal tenderness and Yes Soft to palpation Skin: General skin exam: normal color and turgor normal Neuro: General: oriented to person, oriented to place, oriented to time and patient oriented x3 Cranial nerves: Yes CN's II-XII intact bilaterally Cognition (Neuro): normal cognition Speech: normal speech Motor exam (neuro): 5/5 motor strength present throughout Sensory Exam: normal sensation Coordination: [id number] test normal and pelt-ir-thar test normal Extrem: General: normal to inspection, full ROM and no pedal edema Psych:
[2021-04-30 20:43] VITALS: PULSE 100; RESP 18; O2SAT 98
[2021-04-30 20:54] LABS: Basophils Absolute Auto 0.1 K/mm3 (0.0-0.1); Basophils Percent Auto 0.6 % (0.2-1.2); Eosinophils Absolute Auto 0.1 K/mm3 (0-0.3); Eosinophils Percent Auto 0.5 % (0-4.4); Hematocrit 45.6 % (37.0-47.0); Immature Granulocyte Absolute 0.04 K/mm3 (0.00-0.031); Immature Granulocyte Percent A 0.3 % (0-0.5); Lymphocytes Absolute Auto 3.99 K/mm3 (0.9-3.2); Lymphocytes Percent Auto 28.7 % (18.3-44.2); Mean Corpuscular HGB Conc 32.9 g/dl (32-36); Mean Corpuscular Hemoglobin 29.2 pg (26-34); Mean Corpuscular Volume 88.9 fl (80-100); Monocytes Absolute Auto 1.1 K/mm3 (0.1-0.6); Monocytes Percent Auto 7.7 % (2.6-8.5); Neutrophils Absolute Auto 8.6 K/mm3 (1.3-6.7); Neutrophils Percent Auto 62.2 % (45.5-73.1); Platelet Count Result 399 k/mm3 (150-375); Red Blood Count 5.13 M/mm3 (4.2-5.4); Red Cell Distribution Width 13.3 % (11.5-14.5); White Blood Count 13.9 K/mm3 (4.5-10.0)
[2021-04-30 20:59] LABS: Add Urine Microscopic? YES; Amorphous Sediment Urine Few; Appearance Urine Cloudy (Clear); Bacteria Urine Trace /hpf; Bilirubin Urine Negative (Negative); Blood Urine 2+ (Negative); Color Urine Yellow (Yellow); Glucose Urine UA Negative (Negative); Ketones Urine Negative (Negative); Leukocyte Esterase Ur Negative LEU/UL (Negative); Mucus Urine Rare /lpf; Nitrate Urine Negative (Negative); Protein Urine Negative (Negative); Specific Grav Ur 1.023 (1.001-1.035); Squamous Epithelial Cell Urine Many /hpf (Few); Urobilinogen Urine Negative mg/dL (<2.0); WBC Urine 0-3 /hpf
[2021-04-30 21:09] LABS: Amphetamine Screen Urine Negative (Negative); Barbiturate Screen Urine Negative (Negative); Benzodiazepines Screen Urine Negative (Negative); Cannabinoid Screen Urine Negative (Negative); Cocaine Screen Urine Negative (Negative); Methadone Screen Urine Negative (Negative); Opiate Screen Urine Negative (Negative); Phencyclidine Screen Urine Negative (Negative)
[2021-04-30 21:25] LABS: Alanine Aminotransferase 21 U/L (4-35); Albumin Level 4.8 g/dL (3.5-5.1); Alkaline Phosphatase 76 U/L (38-126); Anion Gap 7 mmol/L (8-16); Aspartate Amino Transferase 27 U/L (14-36); Bilirubin,Total 0.5 mg/dL (0.2-1.3); Blood Urea Nitrogen 19 mg/dL (7-17); Calcium 9.9 mg/dL (8.4-10.2); Carbon Dioxide 29 mmol/L (22-30); Chloride 103 mmol/L (98-107); Estimated CRCL calculation 152 ml/min; Estimated Glomerular Filt Rate > 60; Glucose 73 mg/dL (65-110); Potassium 4.3 mmol/L (3.4-5.0); Sodium 139 mmol/L (137-145)
[2021-04-30 23:51] VITALS: BP 110/84; PULSE 95; RESP 18; O2SAT 100
[2021-05-01 01:08] LABS: Troponin I < 0.012 ng/mL (0.000-0.034)
[2021-05-01 01:21] VITALS: BP 103/80; PULSE 100; RESP 18; O2SAT 99
== END 2021-05-01 01:55 | disposition home or self-care (01) ==
PROVIDERS: Emergency Provider Emergency Medicine
DX: R42 Dizziness and giddiness (principal); R55 Syncope and collapse; J45.909 Unspecified asthma, uncomplicated; G62.9 Polyneuropathy, unspecified; F41.9 Anxiety disorder, unspecified; F31.9 Bipolar disorder, unspecified; F43.10 Post-traumatic stress disorder, unspecified; F17.210 Nicotine dependence, cigarettes, uncomplicated; Z79.899 Other long term (current) drug therapy
CPT/HCPCS: 36415; 70450; 80053; 80307; 81001; 81025; 84484; 85025; 93005; 96360; 99284; J7030

== ENCOUNTER 2021-05-07 11:13 | Emergency (ER) | payer MEDICARE, MEDICAID, SELFPAY ==
--- NOTE | ~2021-05-07 | XR_ITS ---
EXAMINATION: XR shoulder RT min 2V INDICATION: Right shoulder pain TECHNIQUE: Four views of the right shoulder are submitted. COMPARISON: None FINDINGS: Normal alignment. No fracture. Glenohumeral and acromioclavicular joint spaces are normal. Soft tissues are unremarkable. IMPRESSION: 1. No acute osseous abnormality. Reviewed, dictated and finalized at location A. GER PSYCHIATRY
--- NOTE | ~2021-05-07 | XR_ITS ---
EXAMINATION: XR hip RT 2V w AP pelvis INDICATION: Pelvic and right hip pain after fall TECHNIQUE: AP view of the pelvis and three views of the right hip are obtained. COMPARISON: 11/26/2020 FINDINGS: Bone alignment is normal. There is no fracture. Phleboliths are noted in the left pelvis. IMPRESSION: 1. No acute osseous abnormality. Reviewed, dictated and finalized at location A. GRAPHY TECHNOLOGIST
--- NOTE | 2021-05-07 11:21 | ED.GENADULT ---
HPI - General Adult General Chief complaint: Extremity Injury, Upper Stated complaint: Right hip, leg and shoulder injury, Time Seen by Provider: 05/07/21 11:30 Source: patient, RN notes reviewed and old records reviewed Mode of arrival: ambulatory Limitations: no limitations History of Present Illness HPI narrative: 21 year old female who presents to [facility] care with complaints of right shoulder injury and injury to right hip area upper leg after falling on ice in her yard yesterday. Patient presents ambulatory to clinic wearing a sling to her right arm states she has been applying Lidocaine patches to right hip and shoulder area and taking ibuprofen for her discomfort. Patient rates her pain a 8/10 with her pain greatest to the right shoulder region with increased pain with movement, no bruising present to shoulder or hip area. MD complaint: pain to right shoulder and right hip area Onset (ago): day(s) (1) Location: upper extremity (right shoulder) and lower extremity (right hip) Severity scale (1-10): 8 Exacerbating factors: movement Treatments prior to arrival: NSAID and other (Lidocaine patch) Related Data Home Medications Medication Instructions Recorded Confirmed escitalopram oxalate [Lexapro] 10 mg PO DAILY 11/26/20 03/29/21 Latuda 40 mg PO HS 03/27/21 03/29/21 naltrexone 25 mg PO DAILY 05/07/21 05/07/21 Allergies Allergy/AdvReac Type Severity Reaction Status Date / Time adhesive tape Allergy Rash Verified 05/07/21 11:25 banana Allergy Anaphylaxis Verified 05/07/21 11:25 minor Allergy Rash Verified 05/07/21 11:25 cranberry Allergy Rash Verified 05/07/21 11:25 latex Allergy Rash Verified 05/07/21 11:25 pineapple Allergy Rash Verified 05/07/21 11:25 Review of Systems Review of Systems: CONSTITUTIONAL: Denies fever, chills, or sweats. EYES: Denies visual changes, redness, or discharge. ENT: Denies rhinorrhea, congestion, sore throat, or otalgia. CARDIOVASCULAR: Denies chest pain, palpitations, or edema. RESPIRATORY: Denies cough or dyspnea. GASTROINTESTINAL: Denies abdominal pain, nausea, vomiting, or diarrhea. GENITOURINARY: Denies dysuria or hematuria. SKIN: Denies rash or itching. MUSCULOSKELETAL: Denies back pain,right shoulder joint pain and right hip pain, or myalgia. NEUROLOGIC: Denies headache, numbness, or weakness. PSYCHIATRIC: Positive for history of anxiety or depression. All systems reviewed & are unremarkable except as noted in HPI and below PMFSH Past Medical History Medical History (Updated 05/07/21 @ 12:16 by Mere Yoo NP) Anxiety Bipolar disorder Depression with anxiety History of asthma Hx of migraines Neuropathy Pseudoseizures PTSD (post-traumatic stress disorder) Surgical History Surgical History (Updated 05/07/21 @ 12:16 by Mere Yoo NP) History of dilatation and curettage History of tonsillectomy and adenoidectomy [place] teeth extracted Social History Social History (Updated 05/07/21 @ 12:37 by Mere Yoo NP) Smoking packs per day: 0.5 Smoking cigarettes per day: 10.0 Years smoked: 14 Smoking pack-years: 7.00 Smoking status: Current every day smoker Tobacco type: cigarettes Alcohol intake: former Alcohol use details: 37 days no alcohol use Substance use: former Substance use type: marijuana Other substance usage details: 2-3 1 HITTERS OR A COUPLE PIPES/DAY Last use: last use of methamphetamine 6 months ago, last use of heroin 2 years ago Living arrangements: with family Gender identity (if verbalized by the patient): Transgender Male Additional gender identity comments: has not taken any hormones at this time for transgender to male Sexual Orientation (if Verbalized by the Patient): Bisexual Spiritual care concerns: No Comments At time of signature, agree with nursing past medical, surgical, social and family history. There is no relevant family history pertinent to the presenting complaint Exam Al
[2021-05-07 11:26] VITALS: BP 126/67; PULSE 91; RESP 16; TEMP 36.7; O2SAT 99
[2021-05-07 11:28] VITALS: BP 126/67; PULSE 91; RESP 16; TEMP 36.7; O2SAT 99
== END 2021-05-07 12:11 | disposition home or self-care (01) ==
PROVIDERS: Emergency Provider Registered Nurse
DX: S70.01XA Contusion of right hip, initial encounter (principal); S40.011A Contusion of right shoulder, initial encounter; W00.9XXA Unspecified fall due to ice and snow, initial encounter; J45.909 Unspecified asthma, uncomplicated; G62.9 Polyneuropathy, unspecified; F17.210 Nicotine dependence, cigarettes, uncomplicated
CPT/HCPCS: 73030; 73502; 99214; G0463

== ENCOUNTER 2021-05-08 22:07 | Emergency (ER) | payer MEDICARE, MEDICAID, SELFPAY ==
--- NOTE | ~2021-05-08 | XR_ITS ---
EXAMINATION: XR chest 2V DATE: 05/08/2021 22:42 INDICATION: Near syncopal episode TECHNIQUE: PA and lateral views of the chest were obtained. COMPARISON: Chest radiograph dated 03/03/2021 FINDINGS: The lungs remain clear with no focal airspace opacities, pulmonary edema, pleural effusion or pneumot horax. The cardiomediastinal silhouette is normal. Moderate lower thoracic spondylosis. IMPRESSION: 1. No acute cardiopulmonary disease. Reviewed, dictated and finalized at location A. LEATHER SETTER
[2021-05-08 22:11] VITALS: BP 119/81; PULSE 114; RESP 17; TEMP 36.4; O2SAT 100
--- NOTE | 2021-05-08 22:31 | ECG_ITS ---
Measurements Intervals [place] Rate: 108 P: 59 HI: 108 QRS: 87 QRSD: 94 T: 20 QT: 317 QTc: 426 Interpretive Statements SINUS TACHYCARDIA WITH SHORT HI INTERVAL MINIMAL Q WAVES- INFERIOR LEADS BASELINE ARTIFACT- II, V1, V3-V6 ABNORMAL ECG Electronically Signed On 05-09-2021 7:09:17 REVIEW RN by Jeffry Hall D.O.
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
[2021-05-08] MEDS: SODIUM CHLORIDE 0.9% IV 1,000 ML 999 ML IV CONT (23:15)
[2021-05-08 23:26] LABS: Basophils Absolute Auto 0.1 K/mm3 (0.0-0.1); Basophils Percent Auto 0.4 % (0.2-1.2); Eosinophils Absolute Auto 0.1 K/mm3 (0-0.3); Eosinophils Percent Auto 0.7 % (0-4.4); Hematocrit 44.7 % (37.0-47.0); Hemoglobin 14.7 g/dL (12.0-15.0); Immature Granulocyte Absolute 0.04 K/mm3 (0.00-0.031); Immature Granulocyte Percent A 0.3 % (0-0.5); Lymphocytes Absolute Auto 4.14 K/mm3 (0.9-3.2); Lymphocytes Percent Auto 33.8 % (18.3-44.2); Mean Corpuscular HGB Conc 32.9 g/dl (32-36); Mean Corpuscular Hemoglobin 29.2 pg (26-34); Mean Corpuscular Volume 88.7 fl (80-100); Mean Platelet Volume 9.3 fl (7.4-10.4); Monocytes Absolute Auto 0.9 K/mm3 (0.1-0.6); Monocytes Percent Auto 7.3 % (2.6-8.5); Neutrophils Percent Auto 57.5 % (45.5-73.1); Platelet Count Result 356 k/mm3 (150-375); Red Blood Count 5.04 M/mm3 (4.2-5.4); Red Cell Distribution Width 13.5 % (11.5-14.5); White Blood Count 12.2 K/mm3 (4.5-10.0)
[2021-05-08 23:31] VITALS: PULSE 99; RESP 23; O2SAT 99
[2021-05-08 23:39] LABS: Alanine Aminotransferase 19 U/L (4-35); Albumin Level 4.7 g/dL (3.5-5.1); Alkaline Phosphatase 83 U/L (38-126); Anion Gap 8 mmol/L (8-16); Aspartate Amino Transferase 25 U/L (14-36); Bilirubin,Total 0.4 mg/dL (0.2-1.3); Blood Urea Nitrogen 16 mg/dL (7-17); Calcium 9.8 mg/dL (8.4-10.2); Carbon Dioxide 26 mmol/L (22-30); Chloride 104 mmol/L (98-107); Estimated Glomerular Filt Rate > 60; Glucose 80 mg/dL (65-110); Potassium 3.7 mmol/L (3.4-5.0); Sodium 138 mmol/L (137-145)
[2021-05-08 23:40] LABS: D Dimer 0.27 ug/mL (<0.48)
[2021-05-08 23:41] LABS: Add Urine Microscopic? YES; Appearance Urine Clear (Clear); Bilirubin Urine Negative (Negative); Blood Urine 2+ (Negative); Color Urine Yellow (Yellow); Glucose Urine UA Negative (Negative); Ketones Urine Negative (Negative); Leukocyte Esterase Ur Negative LEU/UL (Negative); Mucus Urine Rare /lpf; Nitrate Urine Negative (Negative); Protein Urine Negative (Negative); RBC Urine 21-50 /hpf (0-2); Specific Grav Ur 1.024 (1.001-1.035); Squamous Epithelial Cell Urine Occasional /hpf (Few); Urobilinogen Urine Negative mg/dL (<2.0)
[2021-05-08 23:50] LABS: Troponin I < 0.012 ng/mL (0.000-0.034)
[2021-05-08 23:54] LABS: Benzodiazepines Screen Urine Negative (Negative)
[2021-05-09] LABS: Amphetamine Screen Urine Negative (Negative); Cannabinoid Screen Urine Negative (Negative); Cocaine Screen Urine Negative (Negative); Methadone Screen Urine Negative (Negative); Opiate Screen Urine Negative (Negative); Phencyclidine Screen Urine Negative (Negative)
[2021-05-09 00:02] LABS: Barbiturate Screen Urine Negative (Negative)
[2021-05-09] MEDS: ACETAMINOPHEN 500 MG TABLET 1000 MG PO (00:11)
[2021-05-09 00:22] LABS: SARS-CoV-2 RNA PCR Negative
[2021-05-09 00:59] VITALS: BP 99/53; PULSE 90; RESP 20; O2SAT 98
[2021-05-09 01:08] VITALS: BP 100/61
== END 2021-05-09 01:11 | disposition home or self-care (01) ==
PROVIDERS: Emergency Provider Nurse Practitioner Family
DX: R55 Syncope and collapse (principal); Z20.822 Contact with and (suspected) exposure to COVID-19; J45.909 Unspecified asthma, uncomplicated; G62.9 Polyneuropathy, unspecified; F41.8 Other specified anxiety disorders; F31.9 Bipolar disorder, unspecified; F43.10 Post-traumatic stress disorder, unspecified; F17.210 Nicotine dependence, cigarettes, uncomplicated; R00.0 Tachycardia, unspecified; Z79.899 Other long term (current) drug therapy
CPT/HCPCS: 36415; 71046; 80053; 80307; 81001; 81025; 84443; 84484; 85025; 85380; 93005; 96360; 99284; A9270; C9803; J7030; U0003; U0005

== ENCOUNTER 2021-05-13 14:40 | Emergency (ER) | payer MEDICARE, MEDICAID, OTHER, SELFPAY ==
--- NOTE | ~2021-05-13 | XR_ITS ---
EXAMINATION:[id number] DATE: 05/13/2021 20:48 INDICATION: Left sided neck pain TECHNIQUE: AP, lateral and odontoid views of the cervical spine are provided. COMPARISON: None FINDINGS: Straightening of the normal cervical lordosis which could be positional or secondary to muscle spasm. No spondylolisthesis or facet subluxation. Odontoid is intact. Normal atlantoaxial interval. Verteb ral body heights are normal. Disc spaces are normal. Prevertebral soft tissues are normal. IMPRESSION: 1. Straightening of the normal cervical lordosis which could be positional or secondary to muscle spa sm. Otherwise unremarkable cervical spine radiographs. Reviewed, dictated and finalized at location A. EACH LIBRARIAN IMPRESSION: 1. Straightening of the normal cervical lordosis which could be positional or s econdary to muscle spasm. Otherwise unremarkable cervical spine radiographs.
[2021-05-13 14:54] VITALS: BP 150/97; PULSE 105; RESP 16; TEMP 36.9; O2SAT 100
--- NOTE | 2021-05-13 15:01 | PC.NURSE ---
Pt scored High risk on [place] scale due to suicide attempt after miscarriage in March of this year. Was hospitalized at that time and now sees a therapist weekly. No current thoughts of suicide at this time. EDP notified.
--- NOTE | 2021-05-13 15:15 | PC.NURSE ---
1511 CONTACTED MEDS SPOKE WITH MOHSEN DELGADILLO CONTACT RESIDENTIAL DIRECT SUPPORT PROFESSIONAL .
--- NOTE | 2021-05-13 15:18 | PC.NURSE ---
[place] WITH [facility] RETURNED CALL WILL BE OUT IN~1 HOUR.
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
--- NOTE | 2021-05-13 16:01 | PC.NURSE ---
Call for help has arrived and speaking with patient
--- NOTE | 2021-05-13 18:50 | PC.NURSE ---
[place] [employer] at bedside with patient, SANE nurse and Call for Help logistics service representative.
[2021-05-13] MEDS: IBUPROFEN 600 MG TABLET PO (18:57)
--- NOTE | 2021-05-13 19:19 | PC.NURSE ---
Patient report received from GINO Morales. This RN assumed care of patient at this time.
--- NOTE | 2021-05-13 19:19 | PC.NURSE ---
Handoff report given to GINO Bonilla
[2021-05-13 19:25] VITALS: TEMP 36.9
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
--- NOTE | 2021-05-13 19:37 | PC.NURSE ---
Patient back in room.
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
--- NOTE | 2021-05-13 20:38 | PC.NURSE ---
Patient taken to xray.
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
[2021-05-13] MEDS: TETANUS,DIPHTHERIA,AC PERTUSSIS ADULT (0.5 ML) BOOSTRIX IM (22:39)
[2021-05-13] MEDS: cefTRIAXone 1 GM VIAL 0.5 GM IM (22:40)
[2021-05-13] MEDS: DOXYCYCLINE HYCLATE 100 MG TABLET PO (22:40)
[2021-05-13] MEDS: metroNIDAZOLE 250 MG TABLET 500 MG PO (22:40)
[2021-05-13] MEDS: ONDANSETRON HCL ODT 4 MG TABLET PO (22:41)
[2021-05-13 23:11] LABS: Basophils Absolute Auto 0.1 K/mm3 (0.0-0.1); Basophils Percent Auto 0.5 % (0.2-1.2); Eosinophils Absolute Auto 0.1 K/mm3 (0-0.3); Eosinophils Percent Auto 0.5 % (0-4.4); Hematocrit 44.1 % (37.0-47.0); Hemoglobin 14.7 g/dL (12.0-15.0); Immature Granulocyte Absolute 0.06 K/mm3 (0.00-0.031); Immature Granulocyte Percent A 0.5 % (0-0.5); Lymphocytes Absolute Auto 4.51 K/mm3 (0.9-3.2); Lymphocytes Percent Auto 35.4 % (18.3-44.2); Mean Corpuscular HGB Conc 33.3 g/dl (32-36); Mean Corpuscular Hemoglobin 29.4 pg (26-34); Mean Corpuscular Volume 88.2 fl (80-100); Mean Platelet Volume 9.5 fl (7.4-10.4); Monocytes Absolute Auto 0.7 K/mm3 (0.1-0.6); Monocytes Percent Auto 5.4 % (2.6-8.5); Neutrophils Absolute Auto 7.4 K/mm3 (1.3-6.7); Neutrophils Percent Auto 57.7 % (45.5-73.1); Platelet Count Result 426 k/mm3 (150-375); Red Cell Distribution Width 13.5 % (11.5-14.5); White Blood Count 12.7 K/mm3 (4.5-10.0)
[2021-05-13 23:24] LABS: Alanine Aminotransferase 16 U/L (4-35); Albumin Level 4.8 g/dL (3.5-5.1); Alkaline Phosphatase 103 U/L (38-126); Anion Gap 10 mmol/L (8-16); Aspartate Amino Transferase 23 U/L (14-36); Bilirubin,Total 0.5 mg/dL (0.2-1.3); Blood Urea Nitrogen 21 mg/dL (7-17); Carbon Dioxide 23 mmol/L (22-30); Chloride 104 mmol/L (98-107); Estimated CRCL calculation 136 ml/min; Estimated Glomerular Filt Rate > 60; Glucose 112 mg/dL (65-110); Potassium 3.7 mmol/L (3.4-5.0); Sodium 137 mmol/L (137-145)
[2021-05-13] MEDS: RALTEGRAVIR 400 MG TABLET PO (23:32)
[2021-05-13] MEDS: ACETAMINOPHEN 325 MG TABLET 650 MG PO (23:32)
[2021-05-13] MEDS: HEPATITIS B VIRUS VACCINE 10 MCG/0.5 ML SYRINGE IM (23:33)
[2021-05-13] MEDS: EMTRICITABINE-TENOFOVIR 100 MG-150 MG TABLET 2 TAB PO (23:33)
[2021-05-13] MEDS: levonorgestreL 1.5 MG TABLET PO (23:34)
[2021-05-13 23:43] LABS: Beta HCG Quantitative < 2.39 mIU/ML
[2021-05-14 00:05] LABS: HIV 1/2 Ab P24 Ag Result Negative (Negative)
[2021-05-14 00:08] VITALS: BP 115/76; PULSE 96; RESP 17; TEMP 36.7; O2SAT 99
[2021-05-14 00:19] LABS: Hepatitis B Surface Antigen Negative (Negative)
[2021-05-14 00:24] LABS: Hepatitis B Core IgM Result Negative (Negative)
[2021-05-14 00:36] LABS: Hepatitis B Surface Anti Res Negative
[2021-05-14 07:15] LABS: Rapid Plasma Reagin Non-Reactive (NonReactive)
[2021-05-17 03:28] LABS: Hepatitis B Core Ab Total Nonreactive (Nonreactive)
== END 2021-05-14 00:01 | disposition home or self-care (01) ==
LOC: ANHED 23:14
PROVIDERS: Emergency Medicine; Emergency Provider Emergency Medicine
DX: T74.21XA Adult sexual abuse, confirmed, initial encounter (principal); Z23 Encounter for immunization; M54.2 Cervicalgia; J45.909 Unspecified asthma, uncomplicated; F41.9 Anxiety disorder, unspecified; F31.9 Bipolar disorder, unspecified; F43.10 Post-traumatic stress disorder, unspecified; F17.210 Nicotine dependence, cigarettes, uncomplicated; Y07.9 Unspecified perpetrator of maltreatment and neglect
CPT/HCPCS: 36415; 72040; 80053; 81025; 84702; 85025; 86592; 86703; 86704; 86705; 86706; 87070; 87147; 87340; 87491; 87591; 87808; 90471; 90715; 90744; 96372; 99285; A9270; G0010; G0432; J0696

== ENCOUNTER 2021-05-14 17:15 | Emergency (ER) | payer MEDICARE, MEDICAID, OTHER, SELFPAY ==
--- NOTE | ~2021-05-14 | XR_ITS ---
EXAMINATION: XR chest 2V DATE: 05/14/2021 19:00 INDICATION: Lightheadedness TECHNIQUE: PA and lateral views of the chest are obtained. COMPARISON: 05/08/2021 FINDINGS: The lungs are free of acute opacities. There is no pleural effusion or pneumothorax. The ca rdiomediastinal silhouette is normal. The visualized bones and soft tissues are unremarkable. IMPRESSION: 1. No acute cardiopulmonary abnormality. Reviewed, dictated and finalized at location F. ER CUTTER
--- NOTE | ~2021-05-14 | CT_ITS ---
EXAMINATION: CT soft tissue neck wo con DATE: 05/14/2021 19:08 INDICATION: Neck pain TECHNIQUE: Computed tomography (CT) of the neck was performed without intravenous contrast. The dose- length product (DLP) was 529.19 mGy-cm. Automated exposure control and iterative reconstruction techn ique were employed. COMPARISON: None FINDINGS: The thyroid gland is unremarkable. The submandibular and parotid glands are symmetric. Ther e is no lymphadenopathy. There are no masses identified. The airway is unremarkable. There are no oss eous abnormalities. The orbits are unremarkable. The superior mediastinum is unremarkable. Visualized sinuses and mastoid air cells are well aerated. IMPRESSION: 1. Unremarkable neck CT. Reviewed, dictated and finalized at location F. GENERATOR IMPRESSION: 1. Unremarkable neck CT.
--- NOTE | ~2021-05-14 | CT_ITS ---
EXAMINATION: CT brain wo con INDICATION: Head injury COMPARISON: 04/30/2021 TECHNIQUE: Standard unenhanced head CT. The dose-length product (DLP) was 605.33 mGy-cm. The mA was a djusted according to patient size. Iterative reconstruction technique was employed. FINDINGS: There is no intracranial hemorrhage, acute infarction, or abnormal mass lesion. The ventric les are normal. There is no abnormal mass effect or midline shift. The sierra-white matter differentiat ion is normal. The basal cisterns are patent. The orbits are normal. The paranasal sinuses, mastoids and calvarium are normal. IMPRESSION: 1. No acute intracranial abnormality. Reviewed, dictated and finalized at location F. BUCKLE MAKER
--- NOTE | ~2021-05-14 | XR_ITS ---
EXAMINATION: XR shoulder LT min 2V INDICATION: Left shoulder pain TECHNIQUE: Four views of the left shoulder are submitted. COMPARISON: 02/06/2021 FINDINGS: Normal alignment. No fracture. Glenohumeral and acromioclavicular joint spaces are normal. Chronic soft tissue calcifications are noted in the upper arm. IMPRESSION: 1. No acute osseous abnormality. Reviewed, dictated and finalized at location F. TING MANAGER
[2021-05-14 17:34] VITALS: BP 131/78; PULSE 90; RESP 18; TEMP 36.8; O2SAT 100
--- NOTE | 2021-05-14 18:44 | ECG_ITS ---
Measurements Intervals [place] Rate: 79 P: 34 [place]: 113 QRS: 90 QRSD: 94 T: 59 QT: 360 QTc: 413 Interpretive Statements SINUS RHYTHM WITH SHORT [place] INTERVAL MINIMAL Q WAVES- INFERIOR LEADS BASELINE ARTIFACT- V6 BORDERLINE ECG Electronically Signed On 05-14-2021 21:15:48 DIGITAL SERVICE ENGINEER by Jeffry Hall D.O.
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
[2021-05-14] MEDS: KETOROLAC (*BKC) 60 MG/2 ML VIAL IM (19:39)
[2021-05-14 19:46] LABS: Basophils Percent Auto 0.4 % (0.2-1.2); Eosinophils Absolute Auto 0.1 K/mm3 (0-0.3); Eosinophils Percent Auto 0.6 % (0-4.4); Hematocrit 40.7 % (37.0-47.0); Hemoglobin 13.9 g/dL (12.0-15.0); Immature Granulocyte Absolute 0.03 K/mm3 (0.00-0.031); Immature Granulocyte Percent A 0.3 % (0-0.5); Mean Corpuscular HGB Conc 34.2 g/dl (32-36); Mean Corpuscular Hemoglobin 29.6 pg (26-34); Mean Corpuscular Volume 86.6 fl (80-100); Mean Platelet Volume 9.4 fl (7.4-10.4); Monocytes Absolute Auto 0.7 K/mm3 (0.1-0.6); Monocytes Percent Auto 5.8 % (2.6-8.5); Neutrophils Absolute Auto 7.7 K/mm3 (1.3-6.7); Neutrophils Percent Auto 68.9 % (45.5-73.1); Platelet Count Result 392 k/mm3 (150-375); Red Cell Distribution Width 13.6 % (11.5-14.5); White Blood Count 11.2 K/mm3 (4.5-10.0)
[2021-05-14 20:08] LABS: Alanine Aminotransferase 14 U/L (4-35); Albumin Level 4.4 g/dL (3.5-5.1); Alkaline Phosphatase 85 U/L (38-126); Anion Gap 11 mmol/L (8-16); Aspartate Amino Transferase 22 U/L (14-36); Bilirubin,Total 0.3 mg/dL (0.2-1.3); Blood Urea Nitrogen 16 mg/dL (7-17); Calcium 9.7 mg/dL (8.4-10.2); Carbon Dioxide 22 mmol/L (22-30); Chloride 108 mmol/L (98-107); Estimated CRCL calculation 134 ml/min; Estimated Glomerular Filt Rate > 60; Glucose 89 mg/dL (65-110); Potassium 3.7 mmol/L (3.4-5.0); Sodium 141 mmol/L (137-145)
[2021-05-14 21:00] VITALS: BP 129/78; PULSE 78; RESP 18; O2SAT 99
== END 2021-05-14 21:02 | disposition home or self-care (01) ==
PROVIDERS: Physician Assistant; Emergency Provider General Practice
DX: M62.838 Other muscle spasm (principal); J45.909 Unspecified asthma, uncomplicated; G62.9 Polyneuropathy, unspecified; F41.9 Anxiety disorder, unspecified; F31.9 Bipolar disorder, unspecified; F43.10 Post-traumatic stress disorder, unspecified; F17.210 Nicotine dependence, cigarettes, uncomplicated; Y04.8XXA Assault by other bodily force, initial encounter; R94.31 Abnormal electrocardiogram [ECG] [EKG]
CPT/HCPCS: 36415; 70450; 70490; 71046; 73030; 80053; 81025; 85025; 93005; 96372; 99284; J1885

== ENCOUNTER 2021-05-21 15:01 | Emergency (ER) | payer MEDICARE, MEDICAID, SELFPAY ==
[2021-05-21 15:19] VITALS: BP 129/86; PULSE 110; RESP 20; TEMP 36.6; O2SAT 100
[2021-05-21 18:46] LABS: Basophils Absolute Auto 0.1 K/mm3 (0.0-0.1); Basophils Percent Auto 0.6 % (0.2-1.2); Eosinophils Absolute Auto 0.1 K/mm3 (0-0.3); Eosinophils Percent Auto 0.9 % (0-4.4); Hematocrit 44.7 % (37.0-47.0); Hemoglobin 15.2 g/dL (12.0-15.0); Immature Granulocyte Absolute 0.04 K/mm3 (0.00-0.031); Immature Granulocyte Percent A 0.4 % (0-0.5); Lymphocytes Absolute Auto 3.55 K/mm3 (0.9-3.2); Lymphocytes Percent Auto 33.9 % (18.3-44.2); Mean Corpuscular Hemoglobin 29.5 pg (26-34); Mean Corpuscular Volume 86.6 fl (80-100); Mean Platelet Volume 9.6 fl (7.4-10.4); Monocytes Absolute Auto 0.8 K/mm3 (0.1-0.6); Monocytes Percent Auto 7.2 % (2.6-8.5); Platelet Count Result 451 k/mm3 (150-375); Red Blood Count 5.16 M/mm3 (4.2-5.4); Red Cell Distribution Width 13.4 % (11.5-14.5); White Blood Count 10.5 K/mm3 (4.5-10.0)
[2021-05-21 18:56] LABS: INR 1.1; Prothrombin Time 13.6 Seconds (11.1-14.7)
[2021-05-21 18:57] LABS: Alanine Aminotransferase 27 U/L (4-35); Albumin Level 4.9 g/dL (3.5-5.1); Alkaline Phosphatase 78 U/L (38-126); Anion Gap 8 mmol/L (8-16); Aspartate Amino Transferase 33 U/L (14-36); Bilirubin,Total 0.5 mg/dL (0.2-1.3); Blood Urea Nitrogen 19 mg/dL (7-17); Calcium 9.7 mg/dL (8.4-10.2); Carbon Dioxide 28 mmol/L (22-30); Chloride 103 mmol/L (98-107); Estimated CRCL calculation 121 ml/min; Estimated Glomerular Filt Rate > 60; Glucose 93 mg/dL (65-110); Partial Thromboplastin Time 26.3 SECONDS (22.3-36.8); Potassium 4.3 mmol/L (3.4-5.0); Sodium 139 mmol/L (137-145)
[2021-05-21 19:30] LABS: Add Urine Microscopic? YES; Appearance Urine Clear (Clear); Bilirubin Urine Negative (Negative); Blood Urine 2+ (Negative); Color Urine Yellow (Yellow); Glucose Urine UA Negative (Negative); Ketones Urine Negative (Negative); Leukocyte Esterase Ur Negative LEU/UL (Negative); Mucus Urine Rare /lpf; Nitrate Urine Negative (Negative); Protein Urine Negative (Negative); RBC Urine 21-50 /hpf (0-2); Specific Grav Ur 1.027 (1.001-1.035); Squamous Epithelial Cell Urine Occasional /hpf (Few); Urobilinogen Urine Negative mg/dL (<2.0); WBC Urine 0-3 /hpf
[2021-05-21] MEDS: KETOROLAC 30 MG/ML VIAL (*BKC) IM (19:52)
[2021-05-21 19:56] VITALS: BP 124/78; PULSE 104; RESP 18; O2SAT 99
--- NOTE | 2021-05-21 20:19 | ED.FEMALEGU ---
HPI - Female Genitourinary General Chief complaint: Vaginal Bleeding <Dena Romero APRN - Last Filed: 05/21/21 20:26> Stated complaint: vaginal bleeding <Dena Romero APRN - Last Filed: 05/21/21 20:26> Time Seen by Provider: 05/21/21 17:42 <Dena Romero APRN - Last Filed: 05/21/21 20:26> Source: patient <Dena Romero APRN - Last Filed: 05/21/21 20:26> Mode of arrival: ambulatory <Dena Romero APRN - Last Filed: 05/21/21 20:26> Limitations: no limitations <Dena Romero APRN - Last Filed: 05/21/21 20:26> History of Present Illness HPI Narrative: 21-year-old female presents today with complaints of. Onset on Friday and with heavy bleeding at about 130 today. Patient states she went through 2 tampons in about 2 hours today. Patient states the tampons were super. Patient with recent history of a spontaneous and D&C by Dr. Merlos in March. This is patient's first period since then. Patient endorses cramping to the lower abdomen. Something for like it how she take at home like I would be snoring like you might not be able to wake me up after what I just gave her gave her stent 10 right the one that; I think yeah she got 5 of Haldol and 2 of Ativan IM yes <Dena Romero, BRICKMASON SUPERVISOR - Last Filed: 05/21/21 20:26> Related Data Home medications: Home Medications Medication Instructions Recorded Confirmed escitalopram oxalate [Lexapro] 10 mg PO DAILY 11/26/20 05/07/21 Latuda 40 mg PO HS 03/27/21 05/07/21 naltrexone 25 mg PO DAILY 05/07/21 05/07/21 <Dena Romero APRN - Last Filed: 05/21/21 20:26> Allergies/Adverse reactions: Allergies Allergy/AdvReac Type Severity Reaction Status Date / Time adhesive tape Allergy Rash Verified 05/14/21 18:17 banana Allergy Anaphylaxis Verified 05/14/21 18:17 minor Allergy Rash Verified 05/14/21 18:17 cranberry Allergy Rash Verified 05/14/21 18:17 latex Allergy Rash Verified 05/14/21 18:17 pineapple Allergy Rash Verified 05/14/21 18:17 <Dena Romero APRN - Last Filed: 05/21/21 20:26> Review of Systems Review of Systems: CONSTITUTIONAL: Denies fever, chills, or sweats. EYES: Denies visual changes, redness, or discharge. ENT: Denies rhinorrhea, congestion, sore throat, or otalgia. CARDIOVASCULAR: Denies chest pain, palpitations, or edema. RESPIRATORY: Denies cough or dyspnea. GASTROINTESTINAL: Denies abdominal pain, nausea, vomiting, or diarrhea. GENITOURINARY: Denies dysuria or hematuria. Vaginal bleeding. SKIN: Denies rash or itching. MUSCULOSKELETAL: Denies back pain, joint pain, or myalgia. NEUROLOGIC: Denies headache, numbness, dizziness, or weakness. PSYCHIATRIC: Denies anxiety or depression. <Dena Romero APRN - Last Filed: 05/21/21 20:26> [facility] Past Medical History Medical History: Medical History Anxiety Bipolar disorder Depression with anxiety History of asthma Hx of migraines Neuropathy Pseudoseizures PTSD (post-traumatic stress disorder) <Dena Romero APRN - Last Filed: 05/21/21 20:26> Surgical History Surgical History: Surgical History History of dilatation and curettage History of tonsillectomy and adenoidectomy [place] teeth extracted <Dena Romero APRN - Last Filed: 05/21/21 20:26> Social History Social History: Social History Smoking packs per day: 0.5 Smoking cigarettes per day: 10.0 Years smoked: 14 Smoking pack-years: 7.00 Smoking status: Current every day smoker Tobacco type: cigarettes Alcohol intake: former Alcohol use details: 37 days no alcohol use Substance use: former Substance use type: marijuana Other substance usage details: 2-3 1 HITTERS OR A COUPLE PIPES/DAY Last use: last use of methamphetamine 6 months ago, last use of heroin 2 years ago [place]
== END 2021-05-21 19:55 | disposition home or self-care (01) ==
PROVIDERS: Emergency Provider Nurse Practitioner Family
DX: N93.9 Abnormal uterine and vaginal bleeding, unspecified (principal); J45.909 Unspecified asthma, uncomplicated; G62.9 Polyneuropathy, unspecified; F41.9 Anxiety disorder, unspecified; F31.9 Bipolar disorder, unspecified; F43.10 Post-traumatic stress disorder, unspecified; F17.210 Nicotine dependence, cigarettes, uncomplicated; R10.30 Lower abdominal pain, unspecified
CPT/HCPCS: 36415; 80053; 81001; 81025; 85025; 85610; 85730; 86850; 86900; 86901; 96372; 99283; J1885

== ENCOUNTER 2021-06-23 18:28 | Emergency (ER) | payer OTHER, SELFPAY ==
--- NOTE | ~2021-06-23 | XR_ITS ---
EXAMINATION: XR chest 2V DATE: 06/23/2021 18:58 INDICATION: Syncope. TECHNIQUE: Frontal and lateral views of the chest were obtained. COMPARISON: Chest 2 views 05/14/2021 FINDINGS: The chest demonstrates clear lungs without pneumonia, pleural effusion, or pneumothorax. Th e heart size is normal. IMPRESSION: 1. No acute cardiopulmonary disease. Reviewed, dictated and finalized at location E.
--- NOTE | ~2021-06-23 | XR_ITS ---
EXAMINATION: XR shoulder RT min 2V DATE: 06/23/2021 19:52 INDICATION: Right shoulder pain. Fall. TECHNIQUE: 4 views of right shoulder were obtained. COMPARISON: Right shoulder radiographs 05/07/2021 FINDINGS: Bone alignment is normal. No fracture. Joint spaces are well maintained. IMPRESSION: 1. Normal right shoulder. Reviewed, dictated and finalized at location E. IMPRESSION: 1. Normal right shoulder.
--- NOTE | ~2021-06-23 | CT_ITS ---
EXAMINATION: CT brain wo con CLINICAL HISTORY: Head injury. TECHNIQUE: Axial images without IV contrast were obtained from the vertex to the foramen magnum. CT Dose-Length Product (DLP): 605 mGy*cm CT Dose Reduction Employed: Iterative reconstruction. COMPARISON: 05/14/2021. RESULT: No acute intracranial hemorrhage or extra-axial fluid collection. No hydrocephalus, mass, or herniation. No acute ischemic infarct. Unremarkable dural venous sinus attenuation. No acute osseous abnormality. The aerated spaces are clear. IMPRESSION: No acute intracranial process. Reviewed, dictated and finalized at location K.
[2021-06-23 18:31] VITALS: BP 135/72; PULSE 130; RESP 18; TEMP 36.8; O2SAT 99
[2021-06-23 18:39] LABS: Glucose Point of Care 145 mg/dl (65-105)
--- NOTE | 2021-06-23 18:41 | ECG_ITS ---
Measurements Intervals [place] Rate: 112 P: 49 TX: 92 QRS: 83 QRSD: 87 T: 19 QT: 322 QTc: 440 Interpretive Statements SINUS TACHYCARDIA WITH SHORT TX INTERVAL NONSPECIFIC T-WAVE ABNORMALITY BORDERLINE ECG COMPARED TO ECG 05/14/2021 19:59:32 HEART RATE HAS INCREASED Electronically Signed On 06-24-2021 16:13:19 CDT by Derian Lobo M.D.
--- NOTE | 2021-06-23 18:45 | PC.NURSE ---
Pt flags high on columbia scale for SI. States he had an attempt in March after a miscarriage but was treated in a psych facility and has no thoughts or plans for suicide at this time. Discussed with EDP and no sitter required at this time.
--- NOTE | 2021-06-23 18:52 | PC.NURSE ---
Addendum entered by Rhea Guajardo RN 06/23/21 18:53: Patient off unit to Radiology for xray not CT. Original Note: Patient off unit to Radiology for head CT.
[2021-06-23 19:01] LABS: Basophils Absolute Auto 0.1 K/mm3 (0.0-0.1); Basophils Percent Auto 0.5 % (0.2-1.2); Eosinophils Absolute Auto 0.2 K/mm3 (0-0.3); Eosinophils Percent Auto 1.4 % (0-4.4); Hematocrit 40.3 % (37.0-47.0); Hemoglobin 13.2 g/dL (12.0-15.0); Immature Granulocyte Absolute 0.23 K/mm3 (0.00-0.031); Immature Granulocyte Percent A 1.8 % (0-0.5); Lymphocytes Absolute Auto 3.54 K/mm3 (0.9-3.2); Lymphocytes Percent Auto 27.1 % (18.3-44.2); Mean Corpuscular HGB Conc 32.8 g/dl (32-36); Mean Corpuscular Hemoglobin 29.5 pg (26-34); Mean Platelet Volume 9.4 fl (7.4-10.4); Monocytes Absolute Auto 0.8 K/mm3 (0.1-0.6); Monocytes Percent Auto 6.3 % (2.6-8.5); Neutrophils Absolute Auto 8.2 K/mm3 (1.3-6.7); Neutrophils Percent Auto 62.9 % (45.5-73.1); Platelet Count Result 375 k/mm3 (150-375); Red Blood Count 4.48 M/mm3 (4.2-5.4); White Blood Count 13.1 K/mm3 (4.5-10.0)
[2021-06-23 19:12] LABS: INR 0.9; Partial Thromboplastin Time 23.7 SECONDS (22.3-36.8); Prothrombin Time 11.8 Seconds (11.1-14.7)
--- NOTE | 2021-06-23 19:12 | PC.NURSE ---
Patient report given to Joy RN. All questions answered and care of pt transferred.
[2021-06-23 19:14] LABS: Alanine Aminotransferase 94 U/L (4-35); Albumin Level 4.1 g/dL (3.5-5.1); Alkaline Phosphatase 83 U/L (38-126); Anion Gap 7 mmol/L (8-16); Aspartate Amino Transferase 70 U/L (14-36); Bilirubin,Total 0.2 mg/dL (0.2-1.3); Blood Urea Nitrogen 17 mg/dL (7-17); Calcium 9.3 mg/dL (8.4-10.2); Carbon Dioxide 24 mmol/L (22-30); Chloride 107 mmol/L (98-107); Estimated CRCL calculation 190 ml/min; Estimated Glomerular Filt Rate > 60; Glucose 131 mg/dL (65-110); Potassium 3.6 mmol/L (3.4-5.0); Sodium 138 mmol/L (137-145)
--- NOTE | 2021-06-23 19:18 | ED.HEATRA ---
HPI - Head Injury General Chief complaint: Head Injury Stated complaint: fall, head inj, loc Time Seen by Provider: 06/23/21 18:51 Source: patient Mode of arrival: wheelchair Limitations: no limitations History of Present Illness HPI Narrative: This is a 21-year-old female to male transgender person that presents to the emergency department for head injury today. Reports he tripped and fell and hit his head. Reports losing consciousness. Since he has had headache and photophobia. Also reports a right shoulder injury. Denies vision changes, chest pain, shortness of breath, vomiting, or focal numbness, or weakness. Related Data Home Medications Medication Instructions Recorded Confirmed escitalopram oxalate [Lexapro] 10 mg PO DAILY 11/26/20 05/07/21 Latuda 40 mg PO HS 03/27/21 05/07/21 naltrexone 25 mg PO DAILY 05/07/21 05/07/21 Allergies Allergy/AdvReac Type Severity Reaction Status Date / Time adhesive tape Allergy Rash Verified 05/14/21 18:17 banana Allergy Anaphylaxis Verified 05/14/21 18:17 minor Allergy Rash Verified 05/14/21 18:17 cranberry Allergy Rash Verified 05/14/21 18:17 latex Allergy Rash Verified 05/14/21 18:17 pineapple Allergy Rash Verified 05/14/21 18:17 Review of Systems Review of Systems: CONSTITUTIONAL: Denies fever EYES: Denies visual changes CARDIOVASCULAR: Denies chest pain, palpitations RESPIRATORY: Denies dyspnea. GASTROINTESTINAL: Denies vomiting MUSCULOSKELETAL: Reports joint pain, and myalgia. NEUROLOGIC: Reports headache. Denies numbness, or weakness. All systems reviewed & are unremarkable except as noted in HPI and below PMFSH Past Medical History Medical History Anxiety Bipolar disorder Depression with anxiety History of asthma Hx of migraines Neuropathy Pseudoseizures PTSD (post-traumatic stress disorder) Surgical History Surgical History History of dilatation and curettage History of tonsillectomy and adenoidectomy [place] teeth extracted Social History Social History Smoking packs per day: 0.5 Smoking cigarettes per day: 10.0 Years smoked: 14 Smoking pack-years: 7.00 Smoking status: Current every day smoker Tobacco type: cigarettes Alcohol intake: former Alcohol use details: 37 days no alcohol use Substance use: former Substance use type: marijuana Other substance usage details: 2-3 1 HITTERS OR A COUPLE PIPES/DAY Last use: last use of methamphetamine 6 months ago, last use of heroin 2 years ago Gender identity (if verbalized by the patient): Transgender Male Additional gender identity comments: has not taken any hormones at this time for transgender to male Sexual Orientation (if Verbalized by the Patient): Bisexual Spiritual care concerns: No Exam Narrative: GENERAL: Well-appearing, well-nourished, and in no acute distress. HEAD: Normocephalic, atraumatic. EYES: PERRLA and EOMI. ENT: Nares clear, no rhinorrhea or epistaxis. Mucous membranes moist. Oropharynx without tonsillar hypertrophy exudate or other lesions. Bilateral TMs pearly sierra non-bulging NECK: Supple. No adenopathy or masses. No midline spinal tenderness CHEST: Clear to auscultation. No respiratory distress. No wheezes rales or rhonchi HEART: Regular rate and rhythm. No murmur heard. Normal peripheral pulses. EXTREMITIES: Normal range of motion. No edema or obvious deformity. Strength equal in bilateral upper and lower extremities (5/5) SKIN: Warm, dry, no rash. NEURO: No focal deficits. Alert and oriented x3. Cranial nerves II through XII grossly intact PSYCH: Normal mood and affect Course Vital Signs Vital signs: Vital Signs Temperature 98.3 F 06/23/21 18:31 Pulse Rate 130 H 06/23/21 18:31 Respiratory Rate 18 06/23/21 18:31 Blood Pressure 135/72 06/23/21 18:31 Pulse Oximetry
[2021-06-23 19:25] LABS: Troponin I < 0.012 ng/mL (0.000-0.034)
--- NOTE | 2021-06-23 19:36 | PC.NURSE ---
Patient in CT at this time.
[2021-06-23] MEDS: SODIUM CHLORIDE 0.9% IV 1,000 ML 999 ML IV CONT (19:59)
[2021-06-23 20:15] VITALS: BP 115/71; BP 126/77; BP 143/88; PULSE 102; PULSE 109; PULSE 111
[2021-06-23 20:25] VITALS: TEMP 36.8
[2021-06-23 20:42] LABS: Hemoglobin A1C 5.1 % (<5.7)
[2021-06-23 21:50] VITALS: BP 131/82; PULSE 103; RESP 15; O2SAT 99
== END 2021-06-23 21:55 | disposition home or self-care (01) ==
PROVIDERS: Physician Assistant; Emergency Provider Emergency Medicine
DX: S06.9X9A Unspecified intracranial injury with loss of consciousness of unspecified duration, initial encounter (principal); R74.01 Elevation of levels of liver transaminase levels; S49.91XA Unspecified injury of right shoulder and upper arm, initial encounter; J45.909 Unspecified asthma, uncomplicated; G62.9 Polyneuropathy, unspecified; F41.9 Anxiety disorder, unspecified; F31.9 Bipolar disorder, unspecified; F43.10 Post-traumatic stress disorder, unspecified; F17.210 Nicotine dependence, cigarettes, uncomplicated; R00.0 Tachycardia, unspecified; R94.31 Abnormal electrocardiogram [ECG] [EKG]; W01.0XXA Fall on same level from slipping, tripping and stumbling without subsequent striking against object, initial encounter
CPT/HCPCS: 36415; 70450; 71046; 73030; 80053; 81025; 82948; 83036; 84484; 85025; 85610; 85730; 93005; 96361; 96365; 99284; J0131; J7030

== ENCOUNTER 2021-06-29 12:13 | Emergency (ER) | payer OTHER, SELFPAY ==
[2021-06-29 12:24] VITALS: BP 130/87; PULSE 134; RESP 22; TEMP 36.7; O2SAT 98
--- NOTE | 2021-06-29 13:18 | ED.HA ---
HPI - Headache General Chief Complaint: Headache Stated Complaint: migraine Time Seen by Provider: 06/29/21 12:38 Source: patient Mode of arrival: ambulatory Limitations: no limitations History of Present Illness HPI Narrative: Patient is a 21-year-old transgender female to male patient who presents the ED with report of headache. Patient reports he tripped and fell 1 week ago, hitting his head and passing out. He was seen in the ED at that time and had a negative CT scan of his brain. Since then, he has had a persistent headache. He does note a history of migraines but states they have never lasted this long. He reports having a diffuse headache, photophobia, phonophobia, dizziness, lightheadedness, nausea and vomiting. Denies any weakness, numbness tingling, fever, neck pain, vision changes, new injury. He has tried taking Tylenol, aspirin, ibuprofen at home without much relief. Related Data Home Medications Medication Instructions Recorded Confirmed escitalopram oxalate [Lexapro] 10 mg PO DAILY 11/26/20 05/07/21 Latuda 40 mg PO HS 03/27/21 05/07/21 naltrexone 25 mg PO DAILY 05/07/21 05/07/21 Allergies Allergy/AdvReac Type Severity Reaction Status Date / Time adhesive tape Allergy Rash Verified 05/14/21 18:17 banana Allergy Anaphylaxis Verified 05/14/21 18:17 minor Allergy Rash Verified 05/14/21 18:17 cranberry Allergy Rash Verified 05/14/21 18:17 latex Allergy Rash Verified 05/14/21 18:17 pineapple Allergy Rash Verified 05/14/21 18:17 Review of Systems Review of Systems: CONSTITUTIONAL: Denies fever, chills, or sweats. EYES: Reports photophobia. Denies visual changes, redness, or discharge. ENT: Reports phonophobia. Denies rhinorrhea, congestion, sore throat, or otalgia. GASTROINTESTINAL: Reports nausea, vomiting. Denies abdominal pain or diarrhea. MUSCULOSKELETAL: Denies neck pain. NEUROLOGIC: Reports headache, dizziness, lightheadedness. Denies numbness/tingling or weakness. All systems reviewed & are unremarkable except as noted in HPI and below PMFSH Past Medical History Medical History Anxiety Bipolar disorder Depression with anxiety History of asthma Hx of migraines Neuropathy Pseudoseizures PTSD (post-traumatic stress disorder) Surgical History Surgical History History of dilatation and curettage History of tonsillectomy and adenoidectomy [place] teeth extracted Social History Social History Smoking packs per day: 0.5 Smoking cigarettes per day: 10.0 Years smoked: 14 Smoking pack-years: 7.00 Smoking status: Current every day smoker Tobacco type: cigarettes Alcohol intake: former Alcohol use details: 37 days no alcohol use Substance use: former Substance use type: marijuana Other substance usage details: 2-3 1 HITTERS OR A COUPLE PIPES/DAY Last use: last use of methamphetamine 6 months ago, last use of heroin 2 years ago Gender identity (if verbalized by the patient): Transgender Male Additional gender identity comments: has not taken any hormones at this time for transgender to male Sexual Orientation (if Verbalized by the Patient): Bisexual Spiritual care concerns: No Exam Narrative: GENERAL: Well appearing, obese, non-toxic, in no acute distress. HEAD: Normocephalic, atraumatic. EYES: PERRL/EOMI, conjunctivae clear bilaterally. No nystagmus. NECK: Supple. No adenopathy, no masses. No midline cervical spinal tenderness. No meningeal signs. RESPIRATORY: Airway patent, respirations nonlabored. Clear to auscultation bilaterally, no rales, rhonchi, wheezing. CARDIOVASCULAR: Regular rate and rhythm without murmurs, rubs, or gallops. Peripheral pulses 2+ and equal bilaterally. MUSCULOSKELETAL: Moves all extremities. Strength/ROM intact without gross deformities or TTP. SKIN: Warm, dry, normal co
[2021-06-29] MEDS: diphenhydrAMINE HCl INJ 50 MG/ML VIAL 25 MG IV PUSH (14:32)
[2021-06-29] MEDS: METOCLOPRAMIDE HCL INJ 10 MG/2 ML VIAL IV PUSH (14:35)
[2021-06-29] MEDS: SODIUM CHLORIDE 0.9% IV 1,000 ML 999 ML IV CONT (14:35)
[2021-06-29] MEDS: KETOROLAC 30 MG/ML VIAL (*BKC) IV PUSH (14:35)
[2021-06-29 16:07] VITALS: BP 124/78; PULSE 80; RESP 16; TEMP 36.4; O2SAT 98
== END 2021-06-29 16:09 | disposition home or self-care (01) ==
PROVIDERS: Emergency Provider Emergency Medicine
DX: G43.909 Migraine, unspecified, not intractable, without status migrainosus (principal); S06.0X9D Concussion with loss of consciousness of unspecified duration, subsequent encounter; J45.909 Unspecified asthma, uncomplicated; G62.9 Polyneuropathy, unspecified; F31.9 Bipolar disorder, unspecified; F41.8 Other specified anxiety disorders; F43.10 Post-traumatic stress disorder, unspecified; F17.210 Nicotine dependence, cigarettes, uncomplicated; W01.0XXD Fall on same level from slipping, tripping and stumbling without subsequent striking against object, subsequent encounter
CPT/HCPCS: 96361; 96374; 96375; 99284; J0131; J1200; J1885; J2765; J7030

== ENCOUNTER 2021-07-26 23:51 | Emergency (ER) | payer OTHER, SELFPAY ==
--- NOTE | ~2021-07-26 | XR_ITS ---
EXAMINATION: XR wrist LT min 3V DATE: 07/27/2021 00:33 INDICATION: Left wrist pain TECHNIQUE: Posteroanterior, ulnar deviation, oblique, and lateral views of the left wrist were obtain ed. COMPARISON: 02/06/2021 FINDINGS: There is no fracture, dislocation, or subluxation. The bones, soft tissues, and joint space s are normal. IMPRESSION: 1. No acute osseous abnormality. Reviewed, dictated and finalized at location A.
[2021-07-26 23:54] VITALS: BP 123/77; PULSE 111; RESP 18; TEMP 36.4; O2SAT 98
--- NOTE | 2021-07-27 00:46 | ED.UPPEXIN ---
HPI - Extremity Injury (Upper) General Chief Complaint: Extremity Injury, Upper Stated Complaint: fall left wrist pain Time Seen by Provider: 07/27/21 00:06 Source: patient History of Present Illness HPI narrative: Patient presents with a left wrist injury. Patient reports he fell asleep on the couch and while falling woke up and landed on the left wrist. He reports diffuse pain most noted on the dorsal aspect of the wrist. Pain is achy, constant, worse with moving the wrist, no radiation. He denies focal numbness or weakness he denies any other areas of pain. Related Data Home Medications Medication Instructions Recorded Confirmed escitalopram oxalate [Lexapro] 10 mg PO DAILY 11/26/20 05/07/21 Latuda 40 mg PO HS 03/27/21 05/07/21 naltrexone 25 mg PO DAILY 05/07/21 05/07/21 Allergies Allergy/AdvReac Type Severity Reaction Status Date / Time adhesive tape Allergy Rash Verified 05/14/21 18:17 banana Allergy Anaphylaxis Verified 05/14/21 18:17 minor Allergy Rash Verified 05/14/21 18:17 cranberry Allergy Rash Verified 05/14/21 18:17 latex Allergy Rash Verified 05/14/21 18:17 pineapple Allergy Rash Verified 05/14/21 18:17 Review of Systems Review of Systems: CONSTITUTIONAL: Denies fever, chills, or sweats. EYES: Denies visual changes, redness, or discharge. ENT: Denies rhinorrhea, congestion, sore throat, or otalgia. CARDIOVASCULAR: Denies chest pain, palpitations, or edema. RESPIRATORY: Denies cough or dyspnea. GASTROINTESTINAL: Denies abdominal pain, nausea, vomiting, or diarrhea. GENITOURINARY: Denies dysuria or hematuria. SKIN: Denies rash or itching. MUSCULOSKELETAL: Denies back pain, or myalgia. NEUROLOGIC: Denies headache, numbness, dizziness, or weakness. PSYCHIATRIC: Denies anxiety or depression. All systems reviewed & are unremarkable except as noted in HPI and below PMFSH Past Medical History Medical History Anxiety Bipolar disorder Depression with anxiety History of asthma Hx of migraines Neuropathy Pseudoseizures PTSD (post-traumatic stress disorder) Surgical History Surgical History History of dilatation and curettage History of tonsillectomy and adenoidectomy [place] teeth extracted Social History Social History Smoking packs per day: 0.5 Smoking cigarettes per day: 10.0 Years smoked: 14 Smoking pack-years: 7.00 Smoking status: Current every day smoker Tobacco type: cigarettes Alcohol intake: former Alcohol use details: 37 days no alcohol use Substance use: former Substance use type: marijuana Other substance usage details: 2-3 1 HITTERS OR A COUPLE PIPES/DAY Last use: last use of methamphetamine 6 months ago, last use of heroin 2 years ago Gender identity (if verbalized by the patient): Transgender Male Additional gender identity comments: has not taken any hormones at this time for transgender to male Sexual Orientation (if Verbalized by the Patient): Bisexual Spiritual care concerns: No Exam Narrative: GENERAL: Well-appearing, well-nourished, and in no acute distress. HEAD: Normocephalic, atraumatic. EYES: PERRLA and EOMI. ENT: Nares clear, no rhinorrhea or epistaxis. Mucous membranes moist. NECK: Supple. No masses. No JVD EXTREMITIES: Normal range of motion. No edema. Diffuse tenderness to the left wrist is noted on the dorsal radial aspect with mild snuffbox tenderness no open or draining wounds no obvious deformity distal extremity with cap refill less than 2 seconds strength remains intact sensation intact to light touch SKIN: Warm, dry, no rash. NEURO: No focal deficits. Alert and oriented x3. PSYCH: Normal mood and affect. Course Reevaluation(s) Reevaluation #1: Patient resting comfortable results and plan reviewed with patient. Patient is comfortable outpatient plan. Yoan
--- NOTE | 2021-07-27 01:18 | PC.NURSE ---
this nurse placed a left thumb spica fiberglass on the pt. Pt has pms intact, capillary refill less than 3 seconds, and pt is educated on use.
== END 2021-07-27 01:15 | disposition home or self-care (01) ==
LOC: ANHED 07-27 00:57
PROVIDERS: Emergency Provider Emergency Medicine
DX: S69.92XA Unspecified injury of left wrist, hand and finger(s), initial encounter (principal); J45.909 Unspecified asthma, uncomplicated; G62.9 Polyneuropathy, unspecified; F31.9 Bipolar disorder, unspecified; F41.8 Other specified anxiety disorders; F43.10 Post-traumatic stress disorder, unspecified; F17.210 Nicotine dependence, cigarettes, uncomplicated; W08.XXXA Fall from other furniture, initial encounter
CPT/HCPCS: 29125; 73110; 99283

== ENCOUNTER 2021-08-05 18:39 | Emergency (ER) | payer OTHER, SELFPAY ==
[2021-08-05 18:41] VITALS: BP 130/83; PULSE 115; RESP 16; TEMP 36.6; O2SAT 99
--- NOTE | 2021-08-05 19:09 | PC.NURSE ---
pt does state that she has been having SI, currently no plan. DENIED RECENT ATTEMPTS OF SELF HARM pt was recently treated at [facility], pt does say she has some AH/VH. Pt does agree to speak to staff if thoughts occur related to self harm. pt agreeable to POC
[2021-08-05 19:36] LABS: Basophils Absolute Auto 0.1 K/mm3 (0.0-0.1); Basophils Percent Auto 0.5 % (0.2-1.2); Eosinophils Absolute Auto 0.2 K/mm3 (0-0.3); Eosinophils Percent Auto 1.2 % (0-4.4); Hematocrit 41.2 % (37.0-47.0); Hemoglobin 13.6 g/dL (12.0-15.0); Immature Granulocyte Absolute 0.06 K/mm3 (0.00-0.031); Immature Granulocyte Percent A 0.5 % (0-0.5); Lymphocytes Absolute Auto 4.07 K/mm3 (0.9-3.2); Lymphocytes Percent Auto 31.2 % (18.3-44.2); Mean Corpuscular Hemoglobin 29.1 pg (26-34); Mean Corpuscular Volume 88.2 fl (80-100); Mean Platelet Volume 9.2 fl (7.4-10.4); Monocytes Absolute Auto 0.8 K/mm3 (0.1-0.6); Monocytes Percent Auto 5.7 % (2.6-8.5); Neutrophils Absolute Auto 7.9 K/mm3 (1.3-6.7); Neutrophils Percent Auto 60.9 % (45.5-73.1); Platelet Count Result 397 k/mm3 (150-375); Red Blood Count 4.67 M/mm3 (4.2-5.4); Red Cell Distribution Width 13.2 % (11.5-14.5); White Blood Count 13.1 K/mm3 (4.5-10.0)
[2021-08-05 19:49] LABS: Lithium 0.3 mmol/L (0.6-1.2)
[2021-08-05 19:50] LABS: Acetaminophen < 10 ug/mL (10-30); Ethanol < 10 mg/dL (<10); Salicylate < 1.0 mg/dL (2-20)
[2021-08-05 19:53] LABS: Alanine Aminotransferase 21 U/L (6-35); Albumin Level 4.2 g/dL (3.5-5.1); Alkaline Phosphatase 78 U/L (38-126); Anion Gap 7 mmol/L (8-16); Aspartate Amino Transferase 25 U/L (14-36); Bilirubin,Total 0.3 mg/dL (0.2-1.3); Blood Urea Nitrogen 16 mg/dL (7-17); Calcium 9.4 mg/dL (8.4-10.2); Carbon Dioxide 26 mmol/L (22-30); Chloride 105 mmol/L (98-107); Estimated CRCL calculation 142 ml/min; Estimated Glomerular Filt Rate > 60; Glucose 104 mg/dL (65-110); Potassium 3.9 mmol/L (3.4-5.0); Sodium 138 mmol/L (137-145)
[2021-08-05 20:02] LABS: Appearance Urine Slightly Cloudy (Clear); Bilirubin Urine Negative (Negative); Blood Urine 2+ (Negative); Color Urine Yellow (Yellow); Glucose Urine UA Negative (Negative); Ketones Urine Negative (Negative); Leukocyte Esterase Ur Trace LEU/UL (Negative); Nitrate Urine Negative (Negative); Protein Urine Negative (Negative); Urobilinogen Urine 0.2 mg/dL (<2.0)
[2021-08-05 20:09] LABS: Bacteria Urine Trace /hpf; Mucus Urine Rare /lpf; Squamous Epithelial Cell Urine Many /hpf (Few); WBC Urine 0-3 /hpf
[2021-08-05 20:10] LABS: Add Urine Microscopic? YES
[2021-08-05 20:16] LABS: Amphetamine Screen Urine Negative (Negative); Barbiturate Screen Urine Negative (Negative); Benzodiazepines Screen Urine Negative (Negative); Cannabinoid Screen Urine Negative (Negative); Cocaine Screen Urine Negative (Negative); Methadone Screen Urine Negative (Negative); Opiate Screen Urine Negative (Negative); Phencyclidine Screen Urine Negative (Negative)
[2021-08-05 20:18] LABS: SARS-CoV-2 RNA PCR Negative
--- NOTE | 2021-08-05 20:28 | PC.NURSE ---
Crisis notified to cristofer of pt.
--- NOTE | 2021-08-05 22:01 | ED.PSYCH ---
HPI - Psych General Chief Complaint: Psychiatric Symptoms Stated Complaint: SI, hallucinations Time Seen by Provider: 08/05/21 19:07 History of Present Illness HPI Narrative: 21-year-old patient who prefers male pronouns presents here with concern that he is having hallucinations, he is currently on his medications, though he did miss several doses over the last few days, denying any suicidal or homicidal ideations. No other complaints. Related Data Home Medications Medication Instructions Recorded Confirmed folic acid 1 mg PO DAILY 08/05/21 lithium carbonate 600 mg PO BID 08/05/21 lumateperone [Caplyta] 42 mg PO DAILY 08/05/21 olanzapine 15 mg PO HS 08/05/21 pantoprazole 40 mg PO DAILY 08/05/21 Allergies Allergy/AdvReac Type Severity Reaction Status Date / Time adhesive tape Allergy Rash Verified 08/05/21 19:14 banana Allergy Anaphylaxis Verified 08/05/21 19:14 minor Allergy Rash Verified 08/05/21 19:14 cranberry Allergy Rash Verified 08/05/21 19:14 latex Allergy Rash Verified 08/05/21 19:14 pineapple Allergy Rash Verified 08/05/21 19:14 Review of Systems Review of Systems: CONST: No fever. HEENT: No sore throat C/V: No chest pain RESP: No cough GI: No abdominal pain : No dysuria. M/S: No joint pain. SKIN: No rash. NEURO: [No headache or focal numbness or weakness] PSYCH: Hallucinations PMFSH Past Medical History Medical History Anxiety Bipolar disorder Depression with anxiety History of asthma Hx of migraines Neuropathy Pseudoseizures PTSD (post-traumatic stress disorder) Surgical History Surgical History History of dilatation and curettage History of tonsillectomy and adenoidectomy [place] teeth extracted Social History Social History Smoking packs per day: 0.5 Smoking cigarettes per day: 10.0 Years smoked: 14 Smoking pack-years: 7.00 Smoking status: Current every day smoker Tobacco type: cigarettes Alcohol intake: former Alcohol use details: 37 days no alcohol use Substance use: former Substance use type: marijuana Other substance usage details: 2-3 1 HITTERS OR A COUPLE PIPES/DAY Last use: last use of methamphetamine 6 months ago, last use of heroin 2 years ago Gender identity (if verbalized by the patient): Transgender Male Additional gender identity comments: has not taken any hormones at this time for transgender to male Sexual Orientation (if Verbalized by the Patient): Bisexual Spiritual care concerns: No Exam Narrative: EXAMINATION OF ORGAN SYSTEMS/BODY AREAS: Constitutional: Vital signs per nursing GENERAL:[No acute distress, non-toxic appearing.] HEAD: Normal with no signs of head trauma. EYES: EOMI, conjunctiva normal ENT: Hearing grossly intact LUNGS: Nonlabored breathing. HEART: Tachycardic ABD: Nondistended EXT: Normal range of motion SKIN: Old cutting scars on right arm nothing new NEURO: [Alert and oriented x 3. No gross focal sensory or strength deficits.] PSYCH: Normal affect Course Course Emergency Course: 21-year-old patient with history of psychiatric illness presents here endorsing hallucinations, vital signs notable for mild tachycardia, exam shows well-appearing patient resting comfortably, not acutely psychotic, labs will be obtained and patient to be evaluated by psychiatry. Medically clear for psychiatric evaluation, they have seen him and feel he is stable for discharge home. I feel this is reasonable as he is not having any suicidal or homicidal ideations and no psychosis. He tells me that he will follow-up with [facility] tomorrow morning, return precautions provided. Vital Signs Vital signs: Vital Signs Temperature 98 F 08/05/21 18:41 Pulse Rate 115 H 08/05/21 18:41 Respiratory Rate 16 08/05/21 18:41 Blood Pressure 130/83 08/05/21 18:41
== END 2021-08-05 22:30 | disposition home or self-care (01) ==
PROVIDERS: Emergency Provider Emergency Medicine
DX: R44.3 Hallucinations, unspecified (principal); Z20.822 Contact with and (suspected) exposure to COVID-19; F31.9 Bipolar disorder, unspecified; F41.9 Anxiety disorder, unspecified; J45.909 Unspecified asthma, uncomplicated; F43.10 Post-traumatic stress disorder, unspecified; G62.9 Polyneuropathy, unspecified; F17.210 Nicotine dependence, cigarettes, uncomplicated
CPT/HCPCS: 36415; 80053; 80178; 80307; 81001; 84443; 85025; 99284; C9803; U0003; U0005

== ENCOUNTER 2021-08-07 20:48 | Emergency (ER) | payer OTHER, SELFPAY ==
--- NOTE | ~2021-08-07 | XR_ITS ---
EXAMINATION: XR chest 2V Exam Date/Time: 08/07/2021 21:15 CDT CLINICAL HISTORY: sob Comparison: 06/23/2021. RESULT: Lines, tubes, and devices: None. Lungs and pleura: Clear. Cardiomediastinal silhouette: Stable cardiomediastinal silhouette. Other: No acute osseous or upper abdominal finding. IMPRESSION: No acute cardiopulmonary process Reviewed, dictated and finalized at location K.
[2021-08-07 21:00] VITALS: BP 126/74; PULSE 103; RESP 18; TEMP 36.7; O2SAT 100
--- NOTE | 2021-08-07 21:04 | ECG_ITS ---
Measurements Intervals [place] Rate: 98 P: 49 GA: 106 QRS: 83 QRSD: 89 T: 60 QT: 333 QTc: 425 Interpretive Statements SINUS RHYTHM WITH SHORT GA INTERVAL POSSIBLE LEFT ATRIAL ENLARGEMENT BORDERLINE ECG Electronically Signed On 08-08-2021 10:19:44 CDT by Jeffry Hall D.O.
[2021-08-07 21:28] LABS: Basophils Absolute Auto 0.1 K/mm3 (0.0-0.1); Basophils Percent Auto 0.4 % (0.2-1.2); Eosinophils Absolute Auto 0.1 K/mm3 (0-0.3); Eosinophils Percent Auto 0.6 % (0-4.4); Hematocrit 44.1 % (37.0-47.0); Hemoglobin 14.2 g/dL (12.0-15.0); Immature Granulocyte Absolute 0.04 K/mm3 (0.00-0.031); Immature Granulocyte Percent A 0.3 % (0-0.5); Lymphocytes Absolute Auto 3.57 K/mm3 (0.9-3.2); Lymphocytes Percent Auto 28.4 % (18.3-44.2); Mean Corpuscular HGB Conc 32.2 g/dl (32-36); Mean Corpuscular Hemoglobin 28.7 pg (26-34); Mean Corpuscular Volume 89.1 fl (80-100); Mean Platelet Volume 9.4 fl (7.4-10.4); Monocytes Absolute Auto 0.7 K/mm3 (0.1-0.6); Monocytes Percent Auto 5.8 % (2.6-8.5); Neutrophils Absolute Auto 8.1 K/mm3 (1.3-6.7); Neutrophils Percent Auto 64.5 % (45.5-73.1); Platelet Count Result 447 k/mm3 (150-375); Red Blood Count 4.95 M/mm3 (4.2-5.4); Red Cell Distribution Width 13.2 % (11.5-14.5); White Blood Count 12.6 K/mm3 (4.5-10.0)
[2021-08-07 21:36] LABS: Alanine Aminotransferase 22 U/L (6-35); Albumin Level 4.8 g/dL (3.5-5.1); Alkaline Phosphatase 88 U/L (38-126); Anion Gap 5 mmol/L (8-16); Aspartate Amino Transferase 26 U/L (14-36); Bilirubin,Total 0.2 mg/dL (0.2-1.3); Blood Urea Nitrogen 17 mg/dL (7-17); Calcium 9.5 mg/dL (8.4-10.2); Carbon Dioxide 26 mmol/L (22-30); Chloride 106 mmol/L (98-107); Estimated CRCL calculation 125 ml/min; Estimated Glomerular Filt Rate > 60; Glucose 96 mg/dL (65-110); Potassium 4.2 mmol/L (3.4-5.0); Sodium 137 mmol/L (137-145)
[2021-08-08 00:01] VITALS: BP 125/84; PULSE 89; RESP 17; TEMP 36.8; O2SAT 98
--- NOTE | 2021-08-08 00:43 | ED.FEVER ---
HPI - Fever General Chief Complaint: Fever <OLIVIA Masters Last Filed: 08/08/21 03:16> Stated Complaint: fever, SOB <OLIVIA Masters Last Filed: 08/08/21 03:16> Time Seen by Provider: 08/08/21 00:04 <OLIVIA Masters Last Filed: 08/08/21 03:16> Source: patient <OLIVIA Masters Last Filed: 08/08/21 03:16> Mode of arrival: ambulatory <OLIVIA Masters Last Filed: 08/08/21 03:16> Limitations: no limitations <OLIVIA Masters Last Filed: 08/08/21 03:16> History of Present Illness HPI Narrative: Patient is a 21-year-old who presents the ED with report of right-sided chest pain. Patient reports he has felt under the weather somewhat today with fatigue. He reports he sneezed around 5 hours prior to arrival and felt a pop in his right sided chest. He has had pain and tenderness in his right-sided chest since then. The pain is worse with taking a deep breath. Patient states his oxygen saturation was 90% at home which prompted him to come to the ED. Oxygen saturation 100% on room air upon arrival. Patient denies any fever, chills, congestion, runny nose, nausea, vomiting, abdominal pain. Has had occasional cough. <OLIVIA Masters Last Filed: 08/08/21 03:16> Related Data Home Medications: Home Medications Medication Instructions Recorded Confirmed folic acid 1 mg PO DAILY 08/05/21 lithium carbonate 600 mg PO BID 08/05/21 lumateperone [Caplyta] 42 mg PO DAILY 08/05/21 olanzapine 15 mg PO HS 08/05/21 pantoprazole 40 mg PO DAILY 08/05/21 <OLIVIA Masters Last Filed: 08/08/21 03:16> Allergies/Adverse Reactions: Allergies Allergy/AdvReac Type Severity Reaction Status Date / Time adhesive tape Allergy Rash Verified 08/08/21 00:05 banana Allergy Anaphylaxis Verified 08/08/21 00:05 minor Allergy Rash Verified 08/08/21 00:05 cranberry Allergy Rash Verified 08/08/21 00:05 latex Allergy Rash Verified 08/08/21 00:05 pineapple Allergy Rash Verified 08/08/21 00:05 <Kika Douglas PA-C - Last Filed: 08/08/21 03:16> Review of Systems Review of Systems: CONSTITUTIONAL: Reports fatigue. Denies fever, chills. ENT: Reports sneezing. Denies rhinorrhea, congestion, sore throat. CARDIOVASCULAR: Reports R sided CP. Denies palpitations, or edema. RESPIRATORY: Reports pain with inspiration, occasional cough. GASTROINTESTINAL: Denies abdominal pain, nausea, vomiting, or diarrhea. MUSCULOSKELETAL: Denies back pain. <Kika Douglas PA-C - Last Filed: 08/08/21 03:16> All systems reviewed & are unremarkable except as noted in HPI and below <Kika Douglas PA-C - Last Filed: 08/08/21 03:16> PMF Past Medical History Medical History: Medical History Anxiety Bipolar disorder Depression with anxiety History of asthma Hx of migraines Neuropathy Pseudoseizures PTSD (post-traumatic stress disorder) <Kika Douglas PA-C - Last Filed: 08/08/21 03:16> Surgical History Surgical History: Surgical History History of dilatation and curettage History of tonsillectomy and adenoidectomy [place] teeth extracted <Kika Douglas PA-C - Last Filed: 08/08/21 03:16> Social History Social History: Social History Smoking packs per day: 0.5 Smoking cigarettes per day: 10.0 Years smoked: 14 Smoking pack-years: 7.00 Smoking status: Current every day smoker Tobacco type: cigarettes Alcohol intake: former Alcohol use details: 37 days no alcohol use Substance use: former Substance use type: marijuana Other substance usage details: 2-3 1 HITTERS OR A COUPLE PIPES/DAY Last use: last use of methamphetamine 6 months ago, last use of heroin 2 years ago Gender identity (if verbalized by the patient): Transgender Male Additional gender identity
[2021-08-08] MEDS: KETOROLAC (*BKC) 60 MG/2 ML VIAL IM (01:13)
[2021-08-08 03:00] LABS: D Dimer < 0.27 ug/mL (<0.48)
[2021-08-08 03:44] VITALS: BP 107/83; PULSE 88; RESP 16; O2SAT 96
== END 2021-08-08 03:45 | disposition home or self-care (01) ==
PROVIDERS: Emergency Medicine; Physician Assistant; Emergency Provider General Practice
DX: R07.81 Pleurodynia (principal); F17.210 Nicotine dependence, cigarettes, uncomplicated
CPT/HCPCS: 36415; 71046; 80053; 85025; 85380; 93005; 96372; 99284; J1885

== ENCOUNTER 2021-08-21 23:30 | Emergency (ER) | payer OTHER, SELFPAY ==
--- NOTE | ~2021-08-21 | XR_ITS ---
XR knee LT min 4V 08/22/2021 00:39 INDICATION: Left knee pain PROCEDURE: 4 views left knee COMPARISON: 01/30/2021 FINDINGS: Fracture, dislocation or subluxation is not identified. The soft tissues appear within norm al limits. No foreign bodies are identified. IMPRESSION: 1: NO ACUTE BONE OR JOINT ABNORMALITY IDENTIFIED. Reviewed, dictated and finalized at location A.
[2021-08-21 23:33] VITALS: BP 120/79; PULSE 102; RESP 18; TEMP 36.8; O2SAT 100
[2021-08-22 00:16] VITALS: BP 113/67; PULSE 105; RESP 22; O2SAT 99
--- NOTE | 2021-08-22 01:29 | ED.LOWEXIN ---
HPI - Extremity Injury (Lower) General Chief Complaint: Extremity Injury, Lower Stated Complaint: left knee pain Time Seen by Provider: 08/21/21 23:59 Source: patient Mode of arrival: wheelchair Limitations: no limitations History of Present Illness HPI Narrative: This is a 21 year old female to male transgender person that presents to the ER for left knee pain. Reports he was walking and his knee hyper-extended. Reports since he has had pain, worse with movement and relieved with rest. He has not taken anything for pain. Reports decreased ROM due to pain. Denies numbness. Related Data Home Medications Medication Instructions Recorded Confirmed folic acid 1 mg tablet 1 mg PO DAILY 08/05/21 lithium carbonate 300 mg 600 mg PO BID 08/05/21 tablet,extended release lumateperone 42 mg capsule 42 mg PO DAILY 08/05/21 (Caplyta) olanzapine 15 mg tablet 15 mg PO HS 08/05/21 pantoprazole 40 mg tablet,delayed 40 mg PO DAILY 08/05/21 release Allergies Allergy/AdvReac Type Severity Reaction Status Date / Time adhesive tape Allergy Rash Verified 08/08/21 00:05 banana Allergy Anaphylaxis Verified 08/08/21 00:05 minor Allergy Rash Verified 08/08/21 00:05 cranberry Allergy Rash Verified 08/08/21 00:05 latex Allergy Rash Verified 08/08/21 00:05 pineapple Allergy Rash Verified 08/08/21 00:05 Review of Systems Review of Systems: CONSTITUTIONAL: Denies fever MUSCULOSKELETAL: Reports joint pain, and myalgia. All systems reviewed & are unremarkable except as noted in HPI and below PMFSH Past Medical History Medical History Anxiety Bipolar disorder Depression with anxiety History of asthma Hx of migraines Neuropathy Pseudoseizures PTSD (post-traumatic stress disorder) Surgical History Surgical History History of dilatation and curettage History of tonsillectomy and adenoidectomy [place] teeth extracted Social History Social History Smoking packs per day: 0.5 Smoking cigarettes per day: 10.0 Years smoked: 14 Smoking pack-years: 7.00 Smoking status: Current every day smoker Tobacco type: cigarettes Alcohol intake: former Alcohol use details: 37 days no alcohol use Substance use: former Substance use type: marijuana Other substance usage details: 2-3 1 HITTERS OR A COUPLE PIPES/DAY Last use: last use of methamphetamine 6 months ago, last use of heroin 2 years ago Gender identity (if verbalized by the patient): Transgender Male Additional gender identity comments: has not taken any hormones at this time for transgender to male Sexual Orientation (if Verbalized by the Patient): Bisexual Spiritual care concerns: No Exam Narrative: GENERAL: Well-appearing, well-nourished, and in no acute distress. HEAD: Normocephalic, atraumatic. EYES: EOMI. EXTREMITIES: Decreased active range of motion in the left knee due to pain. No edema or obvious deformity. Normal DP pulse SKIN: Warm, dry, no rash. NEURO: No focal deficits. Alert and oriented x3. PSYCH: Normal mood and affect Course Vital Signs Vital signs: Vital Signs Temperature 98.2 F 08/21/21 23:33 Pulse Rate 102 H 08/21/21 23:33 Respiratory Rate 18 08/21/21 23:33 Blood Pressure 120/79 08/21/21 23:33 Pulse Oximetry 100 08/21/21 23:33 Temperature 98.2 F 08/21/21 23:33 Pulse Rate 105 H 08/22/21 00:16 Respiratory Rate 22 H 08/22/21 00:16 Blood Pressure 113/67 08/22/21 00:16 Pulse Oximetry 99 08/22/21 00:16 Oxygen Delivery Room Air 08/22/21 00:16 MDM - Extremity Injury (Lower) MDM Narrative Medical decision making narrative: Patient presents to the ER for left knee pain after an injury today. Patient is neurovascularly intact. No acute osseous abnormalities noted on knee x-ray. He was instructed on care of knee sprain.
--- NOTE | 2021-08-22 02:05 | PC.NURSE ---
Crutches not avalible. Script written.
[2021-08-22 02:06] VITALS: BP 107/73; PULSE 82; RESP 20; O2SAT 100
== END 2021-08-22 02:09 | disposition home or self-care (01) ==
PROVIDERS: Emergency Provider Emergency Medicine
DX: M23.92 Unspecified internal derangement of left knee (principal); F17.210 Nicotine dependence, cigarettes, uncomplicated
CPT/HCPCS: 73564; 96372; 99283

== ENCOUNTER 2021-08-23 20:06 | Emergency (ER) | payer OTHER, SELFPAY ==
--- NOTE | ~2021-08-23 | XR_ITS ---
EXAMINATION:[id number] DATE: 08/23/2021 21:16 INDICATION: Neck pain TECHNIQUE: AP, lateral, and odontoid views of the cervical spine are provided. COMPARISON: 05/13/2021 FINDINGS: There is straightening of the cervical spine which can be positional or due to muscular spa sm. The odontoid is intact. No fracture is identified. Vertebral body heights and disk spaces are nor mal. Prevertebral soft tissues are normal. IMPRESSION: 1. No acute osseous abnormality. Reviewed, dictated and finalized at location F.
[2021-08-23 20:42] VITALS: BP 129/75; PULSE 86; RESP 20; TEMP 36.9; O2SAT 99
--- NOTE | 2021-08-23 20:53 | ED.GENADULT ---
HPI - General Adult General Chief complaint: Extremity Injury, Upper Stated complaint: upper extremity pain Time Seen by Provider: 08/23/21 20:41 History of Present Illness HPI narrative: Patient is a 21-year-old F-->M patient here for evaluation of neck pain today. Patient states the pain is sharp and shooting in nature and radiates down his left arm. Denies weakness in his arm. He has attempted Tylenol and lidocaine patches without relief of his symptoms. Denies trauma to neck or head, weakness, headaches, vision changes, slurred speech. Patient is moving to [place] next week and does not currently have a primary care provider; noted to have frequent ED visits, most recently last week. Related Data Home Medications Medication Instructions Recorded Confirmed folic acid 1 mg tablet 1 mg PO DAILY 08/05/21 lithium carbonate 300 mg 600 mg PO BID 08/05/21 tablet,extended release lumateperone 42 mg capsule 42 mg PO DAILY 08/05/21 (Caplyta) olanzapine 15 mg tablet 15 mg PO HS 08/05/21 pantoprazole 40 mg tablet,delayed 40 mg PO DAILY 08/05/21 release Allergies Allergy/AdvReac Type Severity Reaction Status Date / Time adhesive tape Allergy Rash Verified 08/08/21 00:05 banana Allergy Anaphylaxis Verified 08/08/21 00:05 minor Allergy Rash Verified 08/08/21 00:05 cranberry Allergy Rash Verified 08/08/21 00:05 latex Allergy Rash Verified 08/08/21 00:05 pineapple Allergy Rash Verified 08/08/21 00:05 Review of Systems Review of Systems: Gen.: Denies fevers or chills Eyes: Denies eye pain or visual change ENT: Denies congestion Respiratory: Denies shortness of breath or cough CV: Denies chest pain or palpitations GI: Denies abdominal pain nausea, emesis or diarrhea denies burning, urgency, frequency or hematuria Musculoskeletal: Reports neck pain and left arm pain Neuro: Denies numbness, tingling, weakness or focal weakness Skin: Denies rash Except as documented, all other systems reviewed and negative [facility] Past Medical History Medical History Anxiety Bipolar disorder Depression with anxiety History of asthma Hx of migraines Neuropathy Pseudoseizures PTSD (post-traumatic stress disorder) Surgical History Surgical History History of dilatation and curettage History of tonsillectomy and adenoidectomy [place] teeth extracted Social History Social History Smoking packs per day: 0.5 Smoking cigarettes per day: 10.0 Years smoked: 14 Smoking pack-years: 7.00 Smoking status: Current every day smoker Tobacco type: cigarettes Alcohol intake: former Alcohol use details: 37 days no alcohol use Substance use: former Substance use type: marijuana Other substance usage details: 2-3 1 HITTERS OR A COUPLE PIPES/DAY Last use: last use of methamphetamine 6 months ago, last use of heroin 2 years ago Gender identity (if verbalized by the patient): Transgender Male Additional gender identity comments: has not taken any hormones at this time for transgender to male Sexual Orientation (if Verbalized by the Patient): Bisexual Spiritual care concerns: No Exam Narrative: APPEARANCE: Well appearing, no pain in distress, well-nourished. Head: normocephalic and atraumatic. EYES: PERRLA/EOMI, conjunctivae clear NOSE: No nasal drainage EARS: External ear normal in appearance THROAT: Oropharynx is clear. Mucous membranes are moist. NECK: Supple. No adenopathy, no masses. RESPIRATORY: Airway patent, respirations nonlabored. Clear to auscultation bilaterally, no rales, rhonchi, wheezing. CARDIOVASCULAR: 2+ radial pulses bilaterally. Regular rate and rhythm without murmurs, rubs, or gallops. ABDOMINAL: Normoactive bowel sounds. Soft, nontender, nondistended. No rebound tenderness or guarding. MUSCULOSKELETAL: Spur
[2021-08-23] MEDS: CYCLOBENZAPRINE HCL 10 MG TABLET PO (20:59)
[2021-08-23] MEDS: IBUPROFEN 400 MG TABLET 800 MG PO (20:59)
[2021-08-23 22:36] VITALS: BP 122/74; PULSE 80; RESP 16; TEMP 36.4; O2SAT 100
== END 2021-08-23 22:39 | disposition home or self-care (01) ==
PROVIDERS: Emergency Provider Emergency Medicine
DX: M54.12 Radiculopathy, cervical region (principal); J45.909 Unspecified asthma, uncomplicated; G62.9 Polyneuropathy, unspecified; F31.9 Bipolar disorder, unspecified; F43.10 Post-traumatic stress disorder, unspecified; F41.8 Other specified anxiety disorders; F17.210 Nicotine dependence, cigarettes, uncomplicated
CPT/HCPCS: 72040; 99283; A9270

== ENCOUNTER 2021-09-06 23:03 | Emergency (ER) | payer OTHER, SELFPAY ==
--- NOTE | ~2021-09-06 | XR_ITS ---
EXAMINATION: XR shoulder RT min 2V DATE: 09/07/2021 00:47 INDICATION: Lateral right shoulder pain post fall TECHNIQUE: AP internally and externally rotated, AP oblique externally rotated and transscapular Y vi ews of the right shoulder were obtained. COMPARISON: 06/23/2021 FINDINGS: Normal alignment. No fracture. Glenohumeral joint is normal. Acromioclavicular joint is normal. IMPRESSION: Normal right shoulder. Reviewed, dictated and finalized at location A. IMPRESSION: Normal right shoulder.
[2021-09-06 23:09] VITALS: BP 121/79; PULSE 99; RESP 18; TEMP 36.4; O2SAT 99
--- NOTE | 2021-09-07 00:19 | ED.FALL ---
HPI - Fall General Chief Complaint: Fall Stated Complaint: shoulder pain, fall Time Seen by Provider: 09/07/21 00:19 History of Present Illness HPI Narrative: Patient is a 21-year-old transgender male presenting to the emergency department for evaluation of mechanical fall with right shoulder pain. Patient states that he was dying his hair and stepped into the shower to wash his hair when he slipped, causing him to hit the back of his head and land onto his right shoulder. Patient is right-hand dominant. Denies numbness, weakness but does report pain at the right shoulder that is exacerbated with movement. Patient denies elbow pain or bruising. Denies chest pain, palpitations, lightheadedness or dizziness prior to the fall. No loss of conscious. Patient denies current vision changes, nausea, vomiting, unilateral weakness or numbness. No significant headache pain. Patient is not on any anticoagulation. He has been ambulatory without difficulty. Related Data Home Medications Medication Instructions Recorded Confirmed folic acid 1 mg tablet 1 mg PO DAILY 08/05/21 lithium carbonate 300 mg 600 mg PO BID 08/05/21 tablet,extended release lumateperone 42 mg capsule 42 mg PO DAILY 08/05/21 (Caplyta) olanzapine 15 mg tablet 15 mg PO HS 08/05/21 pantoprazole 40 mg tablet,delayed 40 mg PO DAILY 08/05/21 release Allergies Allergy/AdvReac Type Severity Reaction Status Date / Time adhesive tape Allergy Rash Verified 08/08/21 00:05 banana Allergy Anaphylaxis Verified 08/08/21 00:05 minor Allergy Rash Verified 08/08/21 00:05 cranberry Allergy Rash Verified 08/08/21 00:05 latex Allergy Rash Verified 08/08/21 00:05 pineapple Allergy Rash Verified 08/08/21 00:05 Review of Systems Review of Systems: CONSTITUTIONAL: Denies fever, chills, or sweats. EYES: Denies visual changes, redness, or discharge. CARDIOVASCULAR: Denies chest pain, palpitations, or edema. RESPIRATORY: Denies cough or dyspnea. GASTROINTESTINAL: Denies abdominal pain, nausea, vomiting, or diarrhea. SKIN: Denies rash or itching. Denies bruising. MUSCULOSKELETAL: Denies back pain, reports right shoulder pain NEUROLOGIC: Denies headache, numbness, or weakness. [facility] Past Medical History Medical History Anxiety Bipolar disorder Depression with anxiety History of asthma Hx of migraines Neuropathy Pseudoseizures PTSD (post-traumatic stress disorder) Surgical History Surgical History History of dilatation and curettage History of tonsillectomy and adenoidectomy [place] teeth extracted Social History Social History Smoking packs per day: 0.5 Smoking cigarettes per day: 10.0 Years smoked: 14 Smoking pack-years: 7.00 Smoking status: Current every day smoker Tobacco type: cigarettes Alcohol intake: former Alcohol use details: 37 days no alcohol use Substance use: former Substance use type: marijuana Other substance usage details: 2-3 1 HITTERS OR A COUPLE PIPES/DAY Last use: last use of methamphetamine 6 months ago, last use of heroin 2 years ago Gender identity (if verbalized by the patient): Transgender Male Additional gender identity comments: has not taken any hormones at this time for transgender to male Sexual Orientation (if Verbalized by the Patient): Bisexual Spiritual care concerns: No Exam Narrative: GENERAL: Awake, alert, conversant HEAD: Normocephalic, atraumatic. No hematomas or abrasions. EYES: PERRLA and EOMI. ENT: Nares clear, no rhinorrhea or epistaxis. Mucous membranes moist. No midline cervical tenderness, no step-offs or deformities. NECK: Supple. CHEST: No respiratory distress, breathing even and non labored, no chest wall tenderness HEART: Regular rate, sinus rhythm ABDOMEN:Non distended, non tender EXTREMITIES: Tenderness o
[2021-09-07] MEDS: KETOROLAC (*BKC) 60 MG/2 ML VIAL 30 MG IM (00:58)
[2021-09-07 01:27] VITALS: BP 123/75; PULSE 82; RESP 18; O2SAT 98
== END 2021-09-07 01:27 | disposition home or self-care (01) ==
PROVIDERS: Emergency Provider Emergency Medicine
DX: S49.91XA Unspecified injury of right shoulder and upper arm, initial encounter (principal); J45.909 Unspecified asthma, uncomplicated; G62.9 Polyneuropathy, unspecified; F31.9 Bipolar disorder, unspecified; F41.8 Other specified anxiety disorders; F43.10 Post-traumatic stress disorder, unspecified; F17.210 Nicotine dependence, cigarettes, uncomplicated; W18.2XXA Fall in (into) shower or empty bathtub, initial encounter
CPT/HCPCS: 73030; 96372; 99283; A4565; J1885

== ENCOUNTER 2021-09-11 18:30 | Emergency (ER) | payer OTHER, SELFPAY ==
[2021-09-11 19:24] VITALS: BP 126/74; PULSE 100; RESP 18; TEMP 36.8; O2SAT 99
--- NOTE | 2021-09-11 21:03 | ED.WOUNDLAC ---
HPI - Wound/Laceration General Chief Complaint: Wound/Laceration <Tiffanie Tejeda PA-C - Last Filed: 09/12/21 01:35> Stated Complaint: finger lac <Tiffanie Tejeda PA-C - Last Filed: 09/12/21 01:35> Time Seen by Provider: 09/11/21 20:27 <Tiffanie Tejeda PA-C - Last Filed: 09/12/21 01:35> History of Present Illness HPI narrative: Patient is a 21-year-old transgender male here for evaluation of a laceration sustained to his left third fingertip with 2 hours prior to arrival. Patient states he was cutting cheese with a knife when he accidentally sliced the tip of his finger. He washed the area out before coming and presented to the ED due to increased bleeding. Bleeding controlled at time of exam. Denies numbness, tingling, weakness in this digit. Patient unsure of last tetanus. <OLIVIA Prajapati Last Filed: 09/12/21 01:35> Related Data Home Medications: Home Medications Medication Instructions Recorded Confirmed folic acid 1 mg tablet 1 mg PO DAILY 08/05/21 lithium carbonate 300 mg 600 mg PO BID 08/05/21 tablet,extended release lumateperone 42 mg capsule 42 mg PO DAILY 08/05/21 (Caplyta) olanzapine 15 mg tablet 15 mg PO HS 08/05/21 pantoprazole 40 mg tablet,delayed 40 mg PO DAILY 08/05/21 release sulfamethoxazole 400 tablet 09/11/21 mg-trimethoprim 80 mg tablet <OLIVIA Prajapati Last Filed: 09/12/21 01:35> Allergies/Adverse Reactions: Allergies Allergy/AdvReac Type Severity Reaction Status Date / Time adhesive tape Allergy Rash Verified 08/08/21 00:05 banana Allergy Anaphylaxis Verified 08/08/21 00:05 minor Allergy Rash Verified 08/08/21 00:05 cranberry Allergy Rash Verified 08/08/21 00:05 latex Allergy Rash Verified 08/08/21 00:05 pineapple Allergy Rash Verified 08/08/21 00:05 <OLIVIA Prajapati Last Filed: 09/12/21 01:35> Review of Systems Review of Systems: Gen: Denies fevers or chills Eyes: Denies eye pain or visual change ENT: Denies congestion Respiratory: Denies shortness of breath or cough CV: Denies chest pain or palpitations GI: Denies abdominal pain nausea, emesis or diarrhea denies burning, urgency, frequency or hematuria Musculoskeletal: Denies back pain or muscle pain Neuro: Denies numbness, tingling, weakness or focal weakness Skin: Reports laceration Except as documented, all other systems reviewed and negative <Tiffanie Tejeda PA-C - Last Filed: 09/12/21 01:35> [facility] Past Medical History Medical History: Medical History Anxiety Bipolar disorder Depression with anxiety History of asthma Hx of migraines Neuropathy Pseudoseizures PTSD (post-traumatic stress disorder) <Tiffanie Tejeda PA-C - Last Filed: 09/12/21 01:35> Surgical History Surgical History: Surgical History History of dilatation and curettage History of tonsillectomy and adenoidectomy [place] teeth extracted <Tiffanie Tejeda PA-C - Last Filed: 09/12/21 01:35> Social History Social History: Social History Smoking packs per day: 0.5 Smoking cigarettes per day: 10.0 Years smoked: 14 Smoking pack-years: 7.00 Smoking status: Current every day smoker Tobacco type: cigarettes Alcohol intake: former Alcohol use details: 37 days no alcohol use Substance use: former Substance use type: marijuana Other substance usage details: 2-3 1 HITTERS OR A COUPLE PIPES/DAY Last use: last use of methamphetamine 6 months ago, last use of heroin 2 years ago Gender identity (if verbalized by the patient): Transgender Male Additional gender identity comments: has not taken any hormones at this time for transgender to male Sexual Orientation (if Verbalized by the Patient): Bisexual Spirit
== END 2021-09-11 21:12 | disposition home or self-care (01) ==
PROVIDERS: Emergency Provider Emergency Medicine
DX: S61.213A Laceration without foreign body of left middle finger without damage to nail, initial encounter (principal); J45.909 Unspecified asthma, uncomplicated; G62.9 Polyneuropathy, unspecified; F41.8 Other specified anxiety disorders; F31.9 Bipolar disorder, unspecified; F43.10 Post-traumatic stress disorder, unspecified; W26.0XXA Contact with knife, initial encounter; Y93.G1 Activity, food preparation and clean up; F17.210 Nicotine dependence, cigarettes, uncomplicated
CPT/HCPCS: 99282

== ENCOUNTER 2021-10-06 11:31 | Emergency (ER) | payer OTHER, SELFPAY ==
--- NOTE | ~2021-10-06 | US_ITS ---
US pelvic complete w TV DATE: 10/06/2021 13:10 INDICATION: Right pelvic pain TECHNIQUE: Real-time imaging via transabdominal and transvaginal approaches COMPARISON: 10/06/2021 CT abdomen pelvis FINDINGS: The uterus is normal in size, measuring 6.7 cm height, 4 cm transverse and 2.5 cm AP dimens ion. Central endometrial echo measures 8 mm AP dimension. No ovarian or pelvic mass lesion is noted. Up to 1.4 cm right ovarian cysts. No abnormal free pelvic fluid collection. IMPRESSION: Up to 1.4 cm right ovarian cysts Reviewed, dictated and finalized at [facility] Reviewed, dictated and finalized at [facility].
--- NOTE | ~2021-10-06 | CT_ITS ---
EXAMINATION: CT abdomen pelvis w con DATE: 10/06/2021 13:24 INDICATION: Lower abdominal pain TECHNIQUE: Computed tomography (CT) of the abdomen and pelvis was performed with 100 CC Omnipaque 300 intravenous contrast. Automated exposure control and iterative reconstruction technique were employe d. Exam dose: 1387.73 mGy-cm total exam DLP. COMPARISON: 10/06/2021 pelvic ultrasound FINDINGS: The lung bases are clear. Normal heart size. No pericardial or pleural effusion. The liver, gallbladder, bile ducts, spleen, pancreas, pancreatic duct, and adrenal glands and kidneys are unremarkable with the exception of a pinpoint nonobstructing lower pole left renal calculus and 3 mm nonobstructing upper pole right renal calculus. No ureteral calculus or hydroureteronephrosis. Normal caliber of the abdominal aorta. No intraperitoneal or retroperitoneal or pelvic mass lesion or adenopathy or ascites. The uterus is unremarkable. Left approximately 1.4 cm right ovarian cyst. Smaller bilateral ovarian f ollicles. The urinary bladder is unremarkable. No bowel obstruction. No evidence of appendicitis. No intraperitoneal free air. Included skeletal structures are unremarkable. IMPRESSION: Small nonobstructing calculus of each kidney; no ureteral calculus or hydroureteronephro sis Reviewed, dictated and finalized at [facility] Reviewed, dictated and finalized at [facility]. IMPRESSION: Small nonobstructing calculus of each kidney; no ureteral calculus or hydroureteronephrosis
[2021-10-06 11:32] VITALS: BP 139/99; PULSE 109; RESP 24; TEMP 36.1; O2SAT 98
[2021-10-06 11:58] LABS: Basophils Percent Auto 0.5 % (0.2-1.2); Eosinophils Absolute Auto 0.1 K/mm3 (0-0.3); Eosinophils Percent Auto 0.6 % (0-4.4); Hematocrit 46.6 % (37.0-47.0); Hemoglobin 15.6 g/dL (12.0-15.0); Immature Granulocyte Absolute 0.02 K/mm3 (0.00-0.031); Immature Granulocyte Percent A 0.2 % (0-0.5); Lymphocytes Absolute Auto 2.83 K/mm3 (0.9-3.2); Lymphocytes Percent Auto 32.6 % (18.3-44.2); Mean Corpuscular HGB Conc 33.5 g/dl (32-36); Mean Corpuscular Hemoglobin 28.8 pg (26-34); Mean Corpuscular Volume 86.1 fl (80-100); Mean Platelet Volume 9.9 fl (7.4-10.4); Monocytes Absolute Auto 0.5 K/mm3 (0.1-0.6); Monocytes Percent Auto 5.9 % (2.6-8.5); Neutrophils Absolute Auto 5.2 K/mm3 (1.3-6.7); Neutrophils Percent Auto 60.2 % (45.5-73.1); Platelet Count Result 364 k/mm3 (150-375); Red Blood Count 5.41 M/mm3 (4.2-5.4); White Blood Count 8.7 K/mm3 (4.5-10.0)
[2021-10-06 12:01] LABS: Appearance Urine Clear (Clear); Bilirubin Urine 1+ (Negative); Blood Urine 2+ (Negative); Color Urine Yellow (Yellow); Glucose Urine UA Negative (Negative); Ketones Urine Negative (Negative); Leukocyte Esterase Ur Negative LEU/UL (Negative); Nitrate Urine Negative (Negative); Protein Urine 1+ mg/dL (Negative); Specific Grav Ur >= 1.030 (1.001-1.035); Urobilinogen Urine 0.2 mg/dL (<2.0)
[2021-10-06 12:07] LABS: Mucus Urine Heavy /lpf; Squamous Epithelial Cell Urine Few /hpf (Few)
[2021-10-06 12:08] LABS: Add Urine Microscopic? YES
[2021-10-06 12:11] LABS: Albumin Level 4.9 g/dL (3.5-5.1); Alkaline Phosphatase 74 U/L (38-126); Anion Gap 12 mmol/L (8-16); Aspartate Amino Transferase 35 U/L (14-36); Bilirubin,Total 0.6 mg/dL (0.2-1.3); Blood Urea Nitrogen 19 mg/dL (7-17); Calcium 9.9 mg/dL (8.4-10.2); Carbon Dioxide 21 mmol/L (22-30); Chloride 106 mmol/L (98-107); Estimated CRCL calculation 132 ml/min; Estimated Glomerular Filt Rate > 60; Glucose 130 mg/dL (65-110); Lipase 34 U/L (23-300); Potassium 4.1 mmol/L (3.4-5.0); Sodium 139 mmol/L (137-145)
[2021-10-06 12:22] LABS: Alanine Aminotransferase 41 U/L (6-35)
--- NOTE | 2021-10-06 12:37 | ED.ABDPAIN ---
HPI - Abdominal Pain General Chief Complaint: Abdominal Pain Stated Complaint: Abd pain Time Seen by Provider: 10/06/21 11:58 History of Present Illness HPI narrative: This is a 21-year-old transmale presenting the emergency department complaining of 1 days worth of 6 out of 10, sharp and cramping right lower quadrant abdominal pain with intermittent right upper quadrant abdominal pain. The patient states his pain began approximately 630 this morning while he was lying down. It is constant although somewhat improved. It is associated with nausea but no vomiting. He denies known aggravating or alleviating factors. He denies diarrhea, vaginal bleeding, abnormal vaginal discharge, or known sick contacts. He states his last menstrual period was approximately September 15. He sexually active with female partners denies sexual cavity with male partners. Related Data Home Medications Medication Instructions Recorded Confirmed folic acid 1 mg tablet 1 mg PO DAILY 08/05/21 lithium carbonate 300 mg 600 mg PO BID 08/05/21 tablet,extended release lumateperone 42 mg capsule 42 mg PO DAILY 08/05/21 (Caplyta) olanzapine 15 mg tablet 15 mg PO HS 08/05/21 pantoprazole 40 mg tablet,delayed 40 mg PO DAILY 08/05/21 release sulfamethoxazole 400 tablet 09/11/21 mg-trimethoprim 80 mg tablet Allergies Allergy/AdvReac Type Severity Reaction Status Date / Time adhesive tape Allergy Rash Verified 08/08/21 00:05 banana Allergy Anaphylaxis Verified 08/08/21 00:05 minor Allergy Rash Verified 08/08/21 00:05 cranberry Allergy Rash Verified 08/08/21 00:05 latex Allergy Rash Verified 08/08/21 00:05 pineapple Allergy Rash Verified 08/08/21 00:05 Review of Systems Review of Systems: CONSTITUTIONAL: Denies fever, chills, or sweats. EYES: Denies visual changes, redness, or discharge. ENT: Denies rhinorrhea, congestion, sore throat, or otalgia. CARDIOVASCULAR: Denies chest pain, palpitations, or edema. RESPIRATORY: Denies cough or dyspnea. GASTROINTESTINAL: abdominal pain, nausea, Denies vomiting, or diarrhea. GENITOURINARY: Denies dysuria, abnormal vaginal discharge or hematuria. SKIN: Denies rash or itching. MUSCULOSKELETAL: Denies back pain, joint pain, or myalgia. NEUROLOGIC: Denies headache, numbness, dizziness, or weakness. PSYCHIATRIC: Denies anxiety or depression. [facility] Past Medical History Medical History Anxiety Bipolar disorder Depression with anxiety History of asthma Hx of migraines Neuropathy Pseudoseizures PTSD (post-traumatic stress disorder) Surgical History Surgical History History of dilatation and curettage History of tonsillectomy and adenoidectomy [place] teeth extracted Social History Social History Smoking packs per day: 0.5 Smoking cigarettes per day: 10.0 Years smoked: 14 Smoking pack-years: 7.00 Smoking status: Current every day smoker Tobacco type: cigarettes Alcohol intake: former Alcohol use details: 37 days no alcohol use Substance use: former Substance use type: marijuana Other substance usage details: 2-3 1 HITTERS OR A COUPLE PIPES/DAY Last use: last use of methamphetamine 6 months ago, last use of heroin 2 years ago Gender identity (if verbalized by the patient): Transgender Male Additional gender identity comments: has not taken any hormones at this time for transgender to male Sexual Orientation (if Verbalized by the Patient): Bisexual Spiritual care concerns: No Exam Narrative: GENERAL: Well-appearing, well-nourished, and in no acute distress. HEAD: Normocephalic, atraumatic. EYES: PERRLA and EOMI. ENT: Nares clear, no rhinorrhea or epistaxis. Mucous membranes moist. Oropharynx without tonsillar hypertrophy exudate or other lesions. CHEST: Clear to auscultation. No respir
[2021-10-06] MEDS: KETOROLAC 30 MG/ML VIAL (*BKC) IV PUSH (12:47)
[2021-10-06] MEDS: ONDANSETRON HCL ODT 4 MG TABLET PO (12:47)
[2021-10-06 12:48] VITALS: BP 120/72; PULSE 70; RESP 16; TEMP 36.3; O2SAT 98
[2021-10-06 13:00] VITALS: BP 118/76; PULSE 76; RESP 16; TEMP 36.8; O2SAT 100
[2021-10-06 14:00] VITALS: BP 122/76; PULSE 76; RESP 16; TEMP 36.4; O2SAT 98
== END 2021-10-06 14:36 | disposition home or self-care (01) ==
PROVIDERS: Physician Assistant; Emergency Provider Preventive Medicine Aerospace Medicine
DX: N20.0 Calculus of kidney (principal); R31.9 Hematuria, unspecified; J45.909 Unspecified asthma, uncomplicated; G62.9 Polyneuropathy, unspecified; F31.9 Bipolar disorder, unspecified; F41.8 Other specified anxiety disorders; F43.10 Post-traumatic stress disorder, unspecified; F17.210 Nicotine dependence, cigarettes, uncomplicated; N83.201 Unspecified ovarian cyst, right side
CPT/HCPCS: 36415; 74177; 76830; 76856; 80053; 81001; 81025; 83690; 85025; 96374; 99284; A9270; J1885; Q9967

== ENCOUNTER 2021-10-23 13:28 | Outpatient (CLI) | payer OTHER, SELFPAY ==
[2021-10-23 13:49] LABS: Basophils Absolute Auto 0.05 K/mm3 (0.00-0.10); Basophils Percent Auto 0.5 % (0.0-1.0); Eosinophils Absolute Auto 0.09 K/mm3 (0.02-0.50); Eosinophils Percent Auto 0.9 % (1.0-6.0); Hematocrit 44.1 % (35.0-49.0); Hemoglobin 14.8 g/dL (12.0-15.0); Immature Granulocyte Absolute 0.02 K/mm3 (0.00-0.00); Immature Granulocyte Percent A 0.2 % (0.0-0.0); Lymphocytes Absolute Auto 3.27 K/mm3 (1.10-4.50); Lymphocytes Percent Auto 33.9 % (18.0-42.0); Mean Corpuscular HGB Conc 33.6 g/dL (32.0-36.0); Mean Corpuscular Hemoglobin 29.2 pg (27.0-31.0); Mean Platelet Volume 9.6 fl (9.2-11.8); Monocytes Absolute Auto 0.79 K/mm3 (0.10-0.90); Monocytes Percent Auto 8.2 % (2.0-11.0); Neutrophils Absolute Auto 5.4 K/mm3 (1.7-7.2); Neutrophils Percent Auto 56.3 % (50.0-70.0); Platelet Count Result 399 K/mm3 (150-420); Red Blood Count 5.07 M/mm3 (4.20-5.40); Red Cell Distribution Width 13.3 % (11.6-14.4); White Blood Count 9.7 K/mm3 (4.8-10.8)
[2021-10-23 14:03] LABS: Hemoglobin A1C 5.1 % (<5.7)
[2021-10-23 14:44] LABS: Alanine Aminotransferase 62 U/L (14-59); Alkaline Phosphatase 85 U/L (46-116); Anion Gap 10 mmol/L (8-16); Aspartate Amino Transferase 27 U/L (15-37); Bilirubin,Total 0.4 mg/dL (0.00-1.00); Blood Urea Nitrogen 14 mg/dL (7-18); Carbon Dioxide 26 mmol/L (21-32); Chloride 105 mmol/L (98-108); Cholesterol 166 mg/dL (0-200); Estimated Glomerular Filt Rate > 60; Glucose 90 mg/dL (70-99); HDL Direct 31 mg/dL (40-60); LDL Cholesterol Calculated 108 mg/dL (<130); Osmolality Calculated 292 mOsm/kg (285-295); Potassium 4.1 mmol/L (3.5-5.1); Sodium 141 mmol/L (136-145); Thyroid Stimulating Hormone 1.54 uIU/mL (0.36-3.74); Total Protein 7.3 g/dL (6.4-8.2); Triglycerides 135 mg/dL (0-150); Vitamin B12 270 pg/mL (193-986)
[2021-10-29 07:28] LABS: Vitamin D 25 Hydroxy 37 ng/mL (30-100)
== END 2021-10-23 13:29 | disposition home or self-care (01) ==
LOC: CHSLAB 13:36
DX: F31.9 Bipolar disorder, unspecified (principal); F41.1 Generalized anxiety disorder; Z79.899 Other long term (current) drug therapy
CPT/HCPCS: 36415; 80053; 80061; 82306; 82607; 83036; 84443; 85025

== ENCOUNTER 2021-10-29 23:59 | Emergency (ER) | payer OTHER, SELFPAY ==
[2021-10-30] VITALS (7 sets, daily range): BP systolic 91–136; BP diastolic 50–84; PULSE 70–96; RESP 16–19; TEMP 36.6; O2SAT 96–99
--- NOTE | 2021-10-30 00:07 | PC.NURSE ---
Pt answers columbia scale and noted to be high risk. Sakshi Valdez, propellant charge loader made aware. Pt states I'm not suicidal or homicidal. I'm here for a headache only. I'm tired of being honest and then I get dinged and people think I'm suicidal. I'm NOT .
--- NOTE | 2021-10-30 00:36 | ED.GENADULT ---
HPI - General Adult General Chief complaint: Headache Stated complaint: migraine Time Seen by Provider: 10/30/21 00:06 History of Present Illness HPI narrative: 21-year-old presenting to the emergency department for evaluation of migraine. Patient states that they do have frequent migraines. They state this migraine started more acutely than their typical migraines but is otherwise similar in character and intensity. Patient states that the migraine started just prior to arrival. During the suicidal screening patient states that they did have suicidal thoughts within the last 3 months. Patient states it was approximately 2 and half months 1 since suicidal thoughts. Patient does have history of cutting but has not cut for multiple weeks. Patient denies any current suicidal ideation. Related Data Home Medications Medication Instructions Recorded Confirmed folic acid 1 mg tablet 1 mg PO DAILY 08/05/21 lithium carbonate 300 mg 600 mg PO BID 08/05/21 tablet,extended release lumateperone 42 mg capsule 42 mg PO DAILY 08/05/21 (Caplyta) olanzapine 15 mg tablet 15 mg PO HS 08/05/21 pantoprazole 40 mg tablet,delayed 40 mg PO DAILY 08/05/21 release sulfamethoxazole 400 tablet 09/11/21 mg-trimethoprim 80 mg tablet Allergies Allergy/AdvReac Type Severity Reaction Status Date / Time adhesive tape Allergy Rash Verified 10/30/21 00:05 banana Allergy Anaphylaxis Verified 10/30/21 00:05 minor Allergy Rash Verified 10/30/21 00:05 cranberry Allergy Rash Verified 10/30/21 00:05 latex Allergy Rash Verified 10/30/21 00:05 pineapple Allergy Rash Verified 10/30/21 00:05 Review of Systems Review of Systems: CONSTITUTIONAL: Denies fever, chills, or sweats. EYES: Denies visual changes, redness, or discharge. ENT: Denies rhinorrhea, congestion, sore throat, or otalgia. CARDIOVASCULAR: Denies chest pain, palpitations, or edema. RESPIRATORY: Denies cough or dyspnea. GASTROINTESTINAL: Denies abdominal pain, nausea, vomiting, or diarrhea. GENITOURINARY: Denies dysuria or hematuria. SKIN: Denies rash or itching. MUSCULOSKELETAL: Denies back pain, joint pain, or myalgia. NEUROLOGIC: Headache [facility] Past Medical History Medical History Anxiety Bipolar disorder Depression with anxiety History of asthma Hx of migraines Neuropathy Pseudoseizures PTSD (post-traumatic stress disorder) Surgical History Surgical History History of dilatation and curettage History of tonsillectomy and adenoidectomy [place] teeth extracted Social History Social History Smoking packs per day: 0.5 Smoking cigarettes per day: 10.0 Years smoked: 14 Smoking pack-years: 7.00 Smoking status: Current every day smoker Tobacco type: cigarettes Alcohol intake: former Alcohol use details: 37 days no alcohol use Substance use: former Substance use type: marijuana Other substance usage details: 2-3 1 HITTERS OR A COUPLE PIPES/DAY Last use: last use of methamphetamine 6 months ago, last use of heroin 2 years ago Gender identity (if verbalized by the patient): Transgender Male Additional gender identity comments: has not taken any hormones at this time for transgender to male Sexual Orientation (if Verbalized by the Patient): Bisexual Spiritual care concerns: No Exam Narrative: APPEARANCE: Well appearing, no pain, no distress, well-nourished. HEAD: normocephalic, atraumatic. EYES: PERRLA/EOMI, conjunctivae clear. NOSE: Normal no drainage EARS:TMS clear with good light reflex. THROAT: Pharynx clear, no exudate. NECK: Supple. No adenopathy, no masses. RESPIRATORY: Airway patent, respirations nonlabored. Clear to auscultation bilaterally, no rales, rhonchi, wheezing. CARDIOVASCULAR: Regular rate and rhythm without murmurs rubs or gallops. [facility]
[2021-10-30] MEDS: diphenhydrAMINE HCl INJ 50 MG/ML VIAL 25 MG IV PUSH (00:49)
[2021-10-30] MEDS: SODIUM CHLORIDE 0.9% IV 1,000 ML 999 ML IV CONT (00:49)
[2021-10-30] MEDS: PROCHLORPERAZINE EDISYLATE 10 MG/2 ML VIAL IV PUSH (00:51)
== END 2021-10-30 03:25 | disposition home or self-care (01) ==
PROVIDERS: Emergency Provider Emergency Medicine
DX: G43.909 Migraine, unspecified, not intractable, without status migrainosus (principal); J45.909 Unspecified asthma, uncomplicated; G62.9 Polyneuropathy, unspecified; F41.9 Anxiety disorder, unspecified; F31.9 Bipolar disorder, unspecified; F43.10 Post-traumatic stress disorder, unspecified; F17.210 Nicotine dependence, cigarettes, uncomplicated
CPT/HCPCS: 96361; 96374; 96375; 99284; J0780; J1200; J7030

== ENCOUNTER 2021-11-06 15:17 | Outpatient (CLI) | payer OTHER, SELFPAY | END 2021-11-06 15:18 | disposition home or self-care (01) | LOC: ANHSURGERY 15:19 | PROVIDERS: Visit Provider Obstetrics & Gynecology | DX: R10.2 Pelvic and perineal pain (principal); Z01.818 Encounter for other preprocedural examination | CPT/HCPCS: 36415; 86850; 86900; 86901 ==

== ENCOUNTER 2021-11-09 01:09 | Day surgery (SDC) | payer OTHER, SELFPAY ==
--- NOTE | 2021-11-06 07:35 | PM.IMHP ---
H&P: HPI History of Present Illness Date/Time: 11/06/21 07:35 Chief Complaint: pelvic pain Narrative: this is a 21-year-old genetic female who identifies as male who is admitted for diagnostic laparoscopy secondary to severe pelvic pain. Patient has had an ultrasound which was negative but has severe pelvic the patient identifies as and will be undergoing testosterone treatments in the future. The patient has been placed on Depo-Provera and the pain continues. There is a family history possibly of endometriosis. Risks and benefits of laparoscopy reviewed [facility] Past Medical History Medical History Anxiety Bipolar disorder Depression with anxiety History of asthma Hx of migraines Neuropathy Pseudoseizures PTSD (post-traumatic stress disorder) Surgical History Surgical History History of dilatation and curettage History of tonsillectomy and adenoidectomy [place] teeth extracted Social History Social History Smoking packs per day: 0.5 Smoking cigarettes per day: 10.0 Years smoked: 14 Smoking pack-years: 7.00 Smoking status: Current every day smoker Tobacco type: cigarettes Alcohol intake: former Alcohol use details: 37 days no alcohol use Substance use: former Substance use type: marijuana Other substance usage details: 2-3 1 HITTERS OR A COUPLE PIPES/DAY Last use: last use of methamphetamine 6 months ago, last use of heroin 2 years ago Gender identity (if verbalized by the patient): Transgender Male Additional gender identity comments: has not taken any hormones at this time for transgender to male Sexual Orientation (if Verbalized by the Patient): Bisexual Spiritual care concerns: No Meds Home Medications and Allergies Home Medications Medication Instructions Recorded Confirmed Type folic acid 1 mg tablet 1 mg PO DAILY 08/05/21 History lithium carbonate 300 mg 600 mg PO BID 08/05/21 History tablet,extended release lumateperone 42 mg capsule 42 mg PO DAILY 08/05/21 History (Caplyta) olanzapine 15 mg tablet 15 mg PO HS 08/05/21 History pantoprazole 40 mg tablet,delayed 40 mg PO DAILY 08/05/21 History release cyclobenzaprine 10 mg tablet 10 mg PO BID PRN muscle spasm #7 08/23/21 Rx tabs acetaminophen 500 mg capsule 500 mg PO Q6H PRN fever or pain 09/07/21 Rx #30 caps ibuprofen 400 mg tablet 400 mg PO TID PRN fever or pain 10 09/07/21 Rx days #30 tabs sulfamethoxazole 400 tablet 09/11/21 History mg-trimethoprim 80 mg tablet Allergies Allergy/AdvReac Type Severity Reaction Status Date / Time adhesive tape Allergy Rash Verified 10/30/21 00:05 banana Allergy Anaphylaxis Verified 10/30/21 00:05 minor Allergy Rash Verified 10/30/21 00:05 cranberry Allergy Rash Verified 10/30/21 00:05 latex Allergy Rash Verified 10/30/21 00:05 pineapple Allergy Rash Verified 10/30/21 00:05 Exam GI: Inspection: normal to inspection : External Female Exam: normal external appearance Speculum Exam - Vagina: normal appearance of the vagina Speculum Exam - Cervix: normal appearance of the cervix Bimanual exam- vagina & uterus: Cervical tenderness present, soft and Uterine tenderness Bimanual Exam- Adnexa, other: tender Assessment and Plan Assessment and plan (1) [id number] transgender person: Code(s): Z78.9 - Other specified health status Status: Acute (2) Pelvic pain: Code(s): R10.2 - Pelvic and perineal pain Status: Acute Plan diagnostic laparoscopy
[2021-11-06 14:19] VITALS: BMI 39.9
--- NOTE | 2021-11-06 14:26 | PC.NURSE ---
Report to the Outpatient Waiting Room, entrance under the green pavilion located off [facility], at time _1pm_ on date _[id number]_. OR Time: _3pm_. - You and your visitor will be asked to self-screen and do not enter if you have any COVID symptoms. - Only one visitor and NO children visitors are allowed at this time. - The patient visitor is requested to leave or wait in car when not with patient due to restrictions. - A mask is required within the hospital. Patients may have clear liquids (water, carbonated beverages, clear teas, apple juice) until 3 hours prior to surgery with a maximum of 20 ounces. - No food from midnight until time of surgery Take the following medications with a SIP of water the morning of surgery: ___Zyprexa and Paxil Medications to discontinue per physician ____None Date to take last dose Please no make-up, nail taiwanese, hairspray, perfume, deodorant, or body powder the day of surgery. No jewelry (including any body piercings) or valuables the day of surgery, leave them at home. Please take a shower or bath the night before, or the morning of, surgery with an antibacterial soap. Wear comfortable, loose fitting clothing. - Jewelry must be removed prior to entering the operating room. Rings and piercings that are not removed may be cut off. - The hospital will not accept responsibility for valuables. - Please leave all valuables, including medications, at home the day of surgery. If you are going home after surgery, a licensed driver utility worker must drive you home. - NO public transportation without another adult. - We recommend that an adult stay with you for 24 hours following discharge. - We also recommend that you do not drive, make important decision, drink alcoholic beverages, or take any drugs that were not prescribed by your health care provider for at least 24 hours after your discharge time. Follow any additional instructions given to you from your surgeon. If you or anyone in your household have experienced Covid symptoms in the past week, please notify your surgeon or the nurse liaison at the phone number below for possible testing. Telephone instructions given to _Patient__and asked if any additional questions and then verbalized understanding. Patient advised to call surgeon office or pre surgery nurse liaison [phone] if any additional questions.
[2021-11-09] VITALS (8 sets, daily range): BP systolic 105–147; BP diastolic 72–97; PULSE 73–96; RESP 16–20; TEMP 36.2–36.5; O2SAT 94–100
--- NOTE | 2021-11-09 06:21 | WPDHPUPDATE1 ---
History and Physical Update Update Date/Time: 11/09/21 06:21 History and Physical has been reviewed, including an updated exam of the patient. There are NO changes in the patient's condition. Risks, benefits, and alternatives have been discussed and questions answered. Patient agrees to proceed with procedure.
--- NOTE | 2021-11-09 13:15 | WPDANESEPPF ---
Anes - Initial Pre Proc Eval Procedure: Operation Date: 11/09/21 15:00 Proposed Procedures p Diagnostic Laparoscopy - Leo Reynoso MD Date/Time: 11/09/21 13:15 Surgeon: Leo Reynoso MD Pre Op Diagnosis: pelvic pain Patient Data Age: 21 Gender: F Height: 1.65 m Weight: 109 kg Allergies Allergy/AdvReac Type Severity Reaction Status Date / Time banana Allergy Severe Anaphylaxis Verified 11/06/21 14:13 cranberry Allergy Severe Hives Verified 11/06/21 14:13 pineapple Allergy Severe Anaphylaxis Verified 11/06/21 14:13 adhesive tape Allergy Mild Rash Verified 11/06/21 14:13 minor Allergy Mild Rash Verified 11/06/21 14:13 latex Allergy Mild Rash Verified 11/06/21 14:13 Home Medications Medication Instructions Recorded Confirmed Type acetaminophen 500 mg capsule 500 mg PO Q6H PRN fever or pain 09/07/21 11/06/21 Rx #30 caps ibuprofen 400 mg tablet 400 mg PO TID PRN fever or pain 10 09/07/21 11/06/21 Rx days #30 tabs olanzapine 5 mg disintegrating 5 mg PO QAM 11/06/21 11/06/21 History tablet paroxetine HCl 20 mg tablet 20 mg PO QAM 11/06/21 11/06/21 History risperidone 2 mg tablet 2 mg PO HS 11/06/21 11/06/21 History hydrocodone 5 mg-acetaminophen 325 1 tablet PO Q4H PRN pain #20 tabs 11/09/21 Rx mg tablet Patient hx anesthesia problems: none Family hx anesthesia problems: none Results Review: All pre-operative results and documents have been reviewed as part of the pre-operative evaluation. [facility] Past Medical History Medical History Anxiety Bipolar disorder Depression with anxiety History of asthma Hx of migraines Neuropathy Pseudoseizures PTSD (post-traumatic stress disorder) Surgical History Surgical History History of dilatation and curettage History of tonsillectomy and adenoidectomy [place] teeth extracted Social History Social History Smoking packs per day: 0.5 Smoking cigarettes per day: 10.0 Years smoked: 14 Smoking pack-years: 7.00 Smoking status: Current every day smoker Tobacco type: cigarettes Alcohol intake: former Alcohol use details: 37 days no alcohol use Substance use: former Substance use type: marijuana Other substance usage details: 2-3 1 HITTERS OR A COUPLE PIPES/DAY Last use: last use of methamphetamine 6 months ago, last use of heroin 2 years ago Living arrangements: with family Gender identity (if verbalized by the patient): Transgender Male Additional gender identity comments: has not taken any hormones at this time for transgender to male Sexual Orientation (if Verbalized by the Patient): Bisexual Spiritual care concerns: No Anes - Eval Final PreProcedure Day of Procedure 11/09/21 13:15 Patient weight: morbidly obese Heart: regular rate and rhythm Lungs: clear to auscultation Airway: Mallampati scale class II and other (lip rings - discussed risks) Emergent: no Anesthetic plan: proceed Anesthesia type and monitoring: general ETT and standard monitoring Results Review: All pre-operative results and documents have been reviewed as part of the pre-operative evaluation. Informed Consent: The patient's anesthetic plan and its attendant risks including oral injury from lip rings she refuses to remove and benefits were discussed with the patient/family/POA. Questions were solicited and answers provided to the satisfaction of the patient/family/POA.
[2021-11-09] MEDS: LACTATED RINGERS 1,000 ML 30 ML IV CONT (13:24)
[2021-11-09] MEDS: ACETAMINOPHEN 500 MG TABLET 1000 MG PO (13:24)
[2021-11-09] MEDS: KETOROLAC 15 MG/ML VIAL (*BKC) IV PUSH (13:25)
--- NOTE | 2021-11-09 14:59 | W.PM.PROC2 ---
Procedure Note - Detailed Date of Procedure 11/09/21 Pre-op Diagnosis pelvic pain Post-op Diagnosis Same Procedure Performed Diagnostic laparoscopy Surgeon Leo Reynoso MD Anesthesia General Indications A 21-year-old transitioning female to male who has severe pelvic pain Findings . Uterus ovaries and tubes. Appear within normal limits. Her urine appeared to be discolored and foul-smelling Description of Procedure Patient was prepped draped in normal sterile fashion placed in the dorsal lithotomy position. Under excellent general trach anesthesia weighted speculum placed in posterior fornix of vagina. Anterior lip of the cervix grasped with a single-tooth tenaculum the Oleary's cannula inserted to the single tooth to be used later for uterine manipulation. After emptying the bladder foul-smelling urine and the weighted speculum was removed gloves were changed. An infraumbilical incision was made Veress needle passed in the abdomen. The abdomen filled with CO2 gas to 15mm the 5mm trocar advanced under direct visualization assuring no injury. Patient placed in Trendelenburg and a suprapubic incision made. The 5mm trocar advanced under direct visualization assuring no injury. The uterus cervix ovaries and tubes all appeared within normal limits as did the appendix and gallbladder and liver edge. No abnormalities were seen with no evidence of scar tissue or any other abnormality seen. The urine was noted to be foul smelling and she will be sent home on antibiotics for the next week. The gas was removed from the abdomen. The lower and upper sites removed. The incisions closed with 4-0 Monocryl and glue. Patient was awakened went to recovery in satisfactory condition. All sponge, needle, instrument counts were correct. There were no immediate complications Estimated Blood Loss 5 Drains No Packing No Pathology None sent Complications No immediate complications Condition Stable Disposition PACU
--- NOTE | 2021-11-09 15:13 | SUR.OPER ---
Urine culture handed off to Cyndie in Lab per Rizwana, PCT @[id number]
[2021-11-09] MEDS: fentaNYL CITRATE INJ (*CRX) 100 MCG/2 ML VIAL 25 MCG IV PUSH ×8 (15:27→16:08)
[2021-11-09] MEDS: oxyCODONE (*CRX) 5 MG/5 ML ORAL SOLN IR PO (16:15)
[2021-11-09] MEDS: diphenhydrAMINE HCl INJ 50 MG/ML VIAL 25 MG IV PUSH (16:29)
== END 2021-11-09 17:07 | disposition home or self-care (01) ==
PROVIDERS: Visit Provider Obstetrics & Gynecology
PROC: (CPT 49320; principal; 2021-11-09 15:00)
DX: R10.2 Pelvic and perineal pain (principal); F17.210 Nicotine dependence, cigarettes, uncomplicated; F12.90 Cannabis use, unspecified, uncomplicated; F41.9 Anxiety disorder, unspecified; F31.9 Bipolar disorder, unspecified; G62.9 Polyneuropathy, unspecified; F43.10 Post-traumatic stress disorder, unspecified; Z78.9 Other specified health status
CPT/HCPCS: 49320; 87086; A9270; J0330; J1100; J1200; J1885; J2250; J2405; J2704; J3010; J7120

== ENCOUNTER 2021-11-14 21:39 | Emergency (ER) | payer OTHER, SELFPAY ==
--- NOTE | ~2021-11-14 | XR_ITS ---
EXAM: XR ankle LT min 3V DATE: 11/14/2021 21:54 HISTORY: INJURY TODAY, RASH TO TOP OF FOOT, PAIN THROUGHOUT ANKLE . COMPARISON: None available. FINDINGS: Normal mineralization. Well-corticated triangular ossific fragment at the tip of the later al malleolus may represent an old fibular avulsion. No acute fracture or dislocation. No lytic or rd stic lesion. Joint spaces are maintained. No erosion or periosteal change. Dorsal foot and lateral an kle soft tissue swelling. IMPRESSION: No acute osseous finding in the left ankle. Reviewed, dictated and finalized at location K.
[2021-11-14 21:40] VITALS: BP 127/80; PULSE 116; RESP 18; TEMP 36.3; O2SAT 99
--- NOTE | 2021-11-14 22:01 | ED.GENADULT ---
HPI - General Adult General Chief complaint: Extremity Injury, Lower Stated complaint: left ankle injury Time Seen by Provider: 11/14/21 22:01 History of Present Illness HPI narrative: 21-year-old female presenting to the ED with left ankle pain. The patient's plain kickball when she tripped and had a hyper plantar flexion of her ankle. She has had some pain over the anterior aspect of the ankle joint. Patient has not taken anything for pain control. She has been able ambulate with some difficulty. Patient has also had an erythematous s rash over the top of her feet for the last month it is itchy. Related Data Home Medications Medication Instructions Recorded Confirmed olanzapine 5 mg disintegrating 5 mg PO QAM 11/06/21 11/06/21 tablet paroxetine HCl 20 mg tablet 20 mg PO QAM 11/06/21 11/06/21 risperidone 2 mg tablet 2 mg PO HS 11/06/21 11/06/21 Allergies Allergy/AdvReac Type Severity Reaction Status Date / Time banana Allergy Severe Anaphylaxis Verified 11/14/21 22:02 cranberry Allergy Severe Hives Verified 11/14/21 22:02 pineapple Allergy Severe Anaphylaxis Verified 11/14/21 22:02 adhesive tape Allergy Mild Rash Verified 11/14/21 22:02 minor Allergy Mild Rash Verified 11/14/21 22:02 latex Allergy Mild Rash Verified 11/14/21 22:02 Review of Systems Review of Systems: CONSTITUTIONAL: Denies night sweats. EYES: No eye pain ENT: Denies rhinorrhea CARDIOVASCULAR: Denies palpitations RESPIRATORY: Denies hemoptysis GASTROINTESTINAL: Denies hematemesis GENITOURINARY: Denies hematuria. SKIN: Denies rash MUSCULOSKELETAL: Denies myalgia. NEUROLOGIC: Denies weakness. PSYCHIATRIC: Denies delusions PMFSH Past Medical History Medical History Anxiety Bipolar disorder Depression with anxiety History of asthma Hx of migraines Neuropathy Pseudoseizures PTSD (post-traumatic stress disorder) Surgical History Surgical History History of dilatation and curettage History of tonsillectomy and adenoidectomy [place] teeth extracted Social History Social History Smoking packs per day: 0.5 Smoking cigarettes per day: 10.0 Years smoked: 14 Smoking pack-years: 7.00 Smoking status: Current every day smoker Tobacco type: cigarettes Alcohol intake: former Alcohol use details: 37 days no alcohol use Substance use: former Substance use type: marijuana Other substance usage details: 2-3 1 HITTERS OR A COUPLE PIPES/DAY Last use: last use of methamphetamine 6 months ago, last use of heroin 2 years ago Gender identity (if verbalized by the patient): Transgender Male Additional gender identity comments: has not taken any hormones at this time for transgender to male Sexual Orientation (if Verbalized by the Patient): Bisexual Spiritual care concerns: No Exam Narrative: APPEARANCE: No apparent distress. Head atraumatic. EYES: PERRLA/EOMI, NOSE: Normal no drainage NECK: Supple, Trachea midline RESPIRATORY: CTAB, No increased work of breathing. CARDIOVASCULAR: S1S2 appreciated ABDOMINAL: Soft, nontender, nondistended, MUSCULOSKELETAl: Exam of the left lower extremity did not reveal any ecchymosis or significant swelling. There is some tenderness palpation over the anterior aspect of the ankle joint. Cap refill is less than 2 seconds. Motor function is intact but limited by pain. NEURO: Alert. Moving 4/4 extremities SKIN:: Has a rash that is consistent with ringworm over the top of her feet bilaterally. PSYCHIATRIC: Normal affect Course Vital Signs Vital signs: Vital Signs Temperature 97.3 F L 11/14/21 21:40 Pulse Rate 116 H 11/14/21 21:40 Respiratory Rate 18 11/14/21 21:40 Blood Pressure 127/80 11/14/21 21:40 Pulse Oximetry 99 11/14/21 21:40 Temperature 97.3 F L 11/14/21 21:40 Pulse Rate 116 H 10/23
[2021-11-14] MEDS: ACETAMINOPHEN 500 MG TABLET 1000 MG PO (22:10)
[2021-11-14] MEDS: IBUPROFEN 400 MG TABLET 800 MG PO (22:54)
[2021-11-14 23:17] VITALS: RESP 16; O2SAT 100
== END 2021-11-14 23:19 | disposition home or self-care (01) ==
PROVIDERS: Emergency Provider Emergency Medicine
DX: S93.402A Sprain of unspecified ligament of left ankle, initial encounter (principal); B35.4 Tinea corporis; J45.909 Unspecified asthma, uncomplicated; G62.9 Polyneuropathy, unspecified; F31.9 Bipolar disorder, unspecified; F41.8 Other specified anxiety disorders; F43.10 Post-traumatic stress disorder, unspecified; F17.210 Nicotine dependence, cigarettes, uncomplicated; W18.40XA Slipping, tripping and stumbling without falling, unspecified, initial encounter; Y93.6A Activity, physical games generally associated with school recess, summer camp and children
CPT/HCPCS: 73610; 99283; A9270

== ENCOUNTER 2021-11-19 11:50 | Emergency (ER) | payer OTHER, SELFPAY ==
--- NOTE | ~2021-11-19 | XR_ITS ---
EXAMINATION: XR hand RT min 3V DATE: 11/19/2021 13:56 INDICATION: Laceration at the index finger right hand TECHNIQUE: Posteroanterior, oblique and lateral views of the right hand were obtained. COMPARISON: 04/27/2021 FINDINGS: Bone alignment is normal. No fracture. Joint spaces are normal. No radiopaque foreign bodies. IMPRESSION: 1. No osseous abnormality or radiopaque foreign body. Reviewed, dictated and finalized at location A.
[2021-11-19 11:53] VITALS: BP 125/93; PULSE 92; RESP 18; TEMP 36.4; O2SAT 100
--- NOTE | 2021-11-19 13:52 | ED.WOUNDLAC ---
HPI - Wound/Laceration General Chief Complaint: Wound/Laceration Stated Complaint: right index finger injury Time Seen by Provider: 11/19/21 13:20 History of Present Illness HPI narrative: 21-year-old female presents the emergency room for evaluation of multiple superficial lacerations to her right index finger. Patient is unsure how the injury occurred she, states it might of occurred when she was wheeling herself to class this morning. Unsure if she crushed it. Related Data Home Medications Medication Instructions Recorded Confirmed olanzapine 5 mg disintegrating 5 mg PO QAM 11/06/21 11/06/21 tablet paroxetine HCl 20 mg tablet 20 mg PO QAM 11/06/21 11/06/21 risperidone 2 mg tablet 2 mg PO HS 11/06/21 11/06/21 Allergies Allergy/AdvReac Type Severity Reaction Status Date / Time banana Allergy Severe Anaphylaxis Verified 11/19/21 11:51 cranberry Allergy Severe Hives Verified 11/19/21 11:51 pineapple Allergy Severe Anaphylaxis Verified 11/19/21 11:51 adhesive tape Allergy Mild Rash Verified 11/19/21 11:51 minor Allergy Mild Rash Verified 11/19/21 11:51 latex Allergy Mild Rash Verified 11/19/21 11:51 Review of Systems Review of Systems: CONSTITUTIONAL: Denies fever, chills, or sweats. EYES: Denies visual changes, redness, or discharge. ENT: Denies rhinorrhea, congestion, sore throat, or otalgia. CARDIOVASCULAR: Denies chest pain, palpitations, or edema. RESPIRATORY: Denies cough or dyspnea. GASTROINTESTINAL: Denies abdominal pain, nausea, vomiting, or diarrhea. GENITOURINARY: Denies dysuria or hematuria. SKIN: Reports multiple lacerations to right index finger MUSCULOSKELETAL: Reports pain to right index finger NEUROLOGIC: Denies headache, numbness, dizziness, or weakness. PSYCHIATRIC: Denies anxiety or depression. [facility] Past Medical History Medical History Anxiety Bipolar disorder Depression with anxiety History of asthma Hx of migraines Neuropathy Pseudoseizures PTSD (post-traumatic stress disorder) Surgical History Surgical History History of dilatation and curettage History of tonsillectomy and adenoidectomy [place] teeth extracted Social History Social History Smoking packs per day: 0.5 Smoking cigarettes per day: 10.0 Years smoked: 14 Smoking pack-years: 7.00 Smoking status: Current every day smoker Tobacco type: cigarettes Alcohol intake: former Alcohol use details: 37 days no alcohol use Substance use: former Substance use type: marijuana Other substance usage details: 2-3 1 HITTERS OR A COUPLE PIPES/DAY Last use: last use of methamphetamine 6 months ago, last use of heroin 2 years ago Gender identity (if verbalized by the patient): Transgender Male Additional gender identity comments: has not taken any hormones at this time for transgender to male Sexual Orientation (if Verbalized by the Patient): Bisexual Spiritual care concerns: No Exam Narrative: GENERAL: Well-appearing, well-nourished, no physical limitations, and in no acute distress. HEAD: Normocephalic, atraumatic. EYES: Conjunctivae normal, PERRLA and EOMI. CHEST: Clear to auscultation. No respiratory distress. No wheezes rales or rhonchi. No tenderness. HEART: Regular rate and rhythm. No murmur heard. Normal peripheral pulses. EXTREMITIES: Normal range of motion. No edema. No clubbing or cyanosis SKIN: 2 superficial skin tears to the dorsal surface of the right index finger NEURO: No focal deficits. Alert and oriented x3. MAEW. CN's II-XI intact bilaterally, normal gait PSYCH: Cooperative. Normal mood and affect. Course Course Emergency Course: Dermabond applied to right index finger. Patient tolerated procedure well Vital Signs Vital signs: Vital Signs Temperature 36.4 C 11/19/21 11:53 Pulse Rate 92 11/19/21 11:53 Res
== END 2021-11-19 14:53 | disposition home or self-care (01) ==
PROVIDERS: Emergency Provider Nurse Practitioner Family
DX: S61.210A Laceration without foreign body of right index finger without damage to nail, initial encounter (principal); J45.909 Unspecified asthma, uncomplicated; G62.9 Polyneuropathy, unspecified; F31.9 Bipolar disorder, unspecified; F41.8 Other specified anxiety disorders; F43.10 Post-traumatic stress disorder, unspecified; F17.210 Nicotine dependence, cigarettes, uncomplicated; X58.XXXA Exposure to other specified factors, initial encounter
CPT/HCPCS: 12001; 73130; 99283

== ENCOUNTER 2021-11-20 17:34 | Emergency (ER) | payer OTHER, SELFPAY ==
--- NOTE | 2021-11-20 17:37 | ED.UPPEXIN ---
HPI - Extremity Injury (Upper) General Chief Complaint: Wound/Laceration Stated Complaint: right hand index finger Time Seen by Provider: 11/20/21 17:36 Source: patient Mode of arrival: ambulatory Limitations: no limitations History of Present Illness HPI narrative: Dony is a 21-year-old male patient presenting to the clinic today with complaints of right hand index finger injury. He reports he was wheeling himself in a wheelchair around [facility], due to neuropathy issues, when his hand got caught in the wheelchair and ripped the skin open. He was seen in the emergency room yesterday following the incident where they did an x-ray and found no break. They then glued his skin back together. Today he has noticed that his skin is bubbling up and looks more swollen than yesterday. He also reports that he is unable to feel the tip of his finger and is unable to bend it like usual. He does not have pain and has not noticed any drainage from the wound. He denies fever. Related Data Home Medications Medication Instructions Recorded Confirmed paroxetine HCl 20 mg tablet 20 mg PO QAM 11/06/21 11/06/21 risperidone 2 mg tablet 2 mg PO HS 11/06/21 11/06/21 Allergies Allergy/AdvReac Type Severity Reaction Status Date / Time banana Allergy Severe Anaphylaxis Verified 11/19/21 11:51 cranberry Allergy Severe Hives Verified 11/19/21 11:51 pineapple Allergy Severe Anaphylaxis Verified 11/19/21 11:51 adhesive tape Allergy Mild Rash Verified 11/19/21 11:51 minor Allergy Mild Rash Verified 11/19/21 11:51 latex Allergy Mild Rash Verified 11/19/21 11:51 Review of Systems Review of Systems: Pertinent positives per HPI. Patient denies any fever, chills, rash, headache, visual changes, dizziness, cough, runny nose, sore throat, shortness of breath, chest pain, palpitations, nausea, vomiting, diarrhea, constipation, abdominal pain, or any urinary issues. [facility] Past Medical History Medical History Anxiety Bipolar disorder Depression with anxiety History of asthma Hx of migraines Neuropathy Pseudoseizures PTSD (post-traumatic stress disorder) Surgical History Surgical History History of dilatation and curettage History of tonsillectomy and adenoidectomy [place] teeth extracted Social History Social History Smoking packs per day: 0.5 Smoking cigarettes per day: 10.0 Years smoked: 14 Smoking pack-years: 7.00 Smoking status: Current every day smoker Tobacco type: cigarettes Alcohol intake: former Alcohol use details: 37 days no alcohol use Substance use: former Substance use type: marijuana Other substance usage details: 2-3 1 HITTERS OR A COUPLE PIPES/DAY Last use: last use of methamphetamine 6 months ago, last use of heroin 2 years ago Gender identity (if verbalized by the patient): Transgender Male Additional gender identity comments: has not taken any hormones at this time for transgender to male Sexual Orientation (if Verbalized by the Patient): Bisexual Spiritual care concerns: No Comments At the time of my signature, I reviewed and agree with the nursing past medical, surgical, social, and family history. There is no relevant family history pertinent to the patient complaint. Exam Narrative: General: Well-developed, well nourished, in no apparent distress Head: Normocephalic, atraumatic. Cardio: Regular rate and rhythm, s1 and s2 normal, no murmur appreciated. Resp: Clear to auscultation bilaterally, no rhonchi, rales, wheezing or rubs. Musculoskeletal: Right 2nd finger with laceration to the lateral volar aspect which appears to be previously avulsed and is now placed with glue, skin surrounding the injury is white with clear fluid visible beneath, non-tender to palpation, limited flexion of the right 2nd fin
[2021-11-20 17:43] VITALS: BP 115/83; PULSE 97; RESP 20; TEMP 36.8; O2SAT 100
== END 2021-11-20 18:13 | disposition home or self-care (01) ==
PROVIDERS: Emergency Provider Nurse Practitioner Family
DX: S61.210A Laceration without foreign body of right index finger without damage to nail, initial encounter (principal); X58.XXXA Exposure to other specified factors, initial encounter; F41.9 Anxiety disorder, unspecified; F31.9 Bipolar disorder, unspecified; G62.9 Polyneuropathy, unspecified; F17.210 Nicotine dependence, cigarettes, uncomplicated
CPT/HCPCS: 29130; 99213; G0463

== ENCOUNTER 2021-11-21 19:33 | Emergency (ER) | payer OTHER, SELFPAY ==
[2021-11-21 19:41] VITALS: BP 132/86; PULSE 96; RESP 18; TEMP 36.4; O2SAT 100
--- NOTE | 2021-11-21 21:24 | ED.GENADULT ---
HPI - General Adult General Chief complaint: Wound/Laceration Stated complaint: right index finger wound Time Seen by Provider: 11/21/21 19:40 Source: patient and old records reviewed Mode of arrival: ambulatory Limitations: no limitations History of Present Illness HPI narrative: Patient is a 21-year-old genetic female who identifies as male, who presents the ED with report of a wound to his R second digit. Patient reports he sustained a laceration to his lateral right second digit on Friday wheeling his wheelchair around campus. He was seen in the ED at that time and the lacerations were more like skin tears, and glued with Dermabond. Patient states the glue has since bubbled around the laceration and he has had numbness to the distal tip of his finger, additionally decreased range of motion of finger. Denies any redness or swelling, denies significant pain, denies fever. Patient also seen at urgent care yesterday and referred to orthopedics. Related Data Home Medications Medication Instructions Recorded Confirmed paroxetine HCl 20 mg tablet 20 mg PO QAM 11/06/21 11/06/21 risperidone 2 mg tablet 2 mg PO HS 11/06/21 11/06/21 Allergies Allergy/AdvReac Type Severity Reaction Status Date / Time banana Allergy Severe Anaphylaxis Verified 11/19/21 11:51 cranberry Allergy Severe Hives Verified 11/19/21 11:51 pineapple Allergy Severe Anaphylaxis Verified 11/19/21 11:51 adhesive tape Allergy Mild Rash Verified 11/19/21 11:51 minor Allergy Mild Rash Verified 11/19/21 11:51 latex Allergy Mild Rash Verified 11/19/21 11:51 Review of Systems Review of Systems: CONSTITUTIONAL: Denies fever, chills, or sweats. SKIN: Reports wound to R 2nd digit. Denies significant swelling or redness of laceration. MUSCULOSKELETAL: Reports decreased range of motion to R second digit, denies significant pain. NEUROLOGIC: Reports numbness to distal R second digit. All systems reviewed & are unremarkable except as noted in HPI and below PMFSH Past Medical History Medical History Anxiety Bipolar disorder Depression with anxiety History of asthma Hx of migraines Neuropathy Pseudoseizures PTSD (post-traumatic stress disorder) Surgical History Surgical History History of dilatation and curettage History of tonsillectomy and adenoidectomy [place] teeth extracted Social History Social History Smoking packs per day: 0.5 Smoking cigarettes per day: 10.0 Years smoked: 14 Smoking pack-years: 7.00 Smoking status: Current every day smoker Tobacco type: cigarettes Alcohol intake: former Alcohol use details: 37 days no alcohol use Substance use: former Substance use type: marijuana Other substance usage details: 2-3 1 HITTERS OR A COUPLE PIPES/DAY Last use: last use of methamphetamine 6 months ago, last use of heroin 2 years ago Gender identity (if verbalized by the patient): Transgender Male Additional gender identity comments: has not taken any hormones at this time for transgender to male Sexual Orientation (if Verbalized by the Patient): Bisexual Spiritual care concerns: No Exam Narrative: GENERAL: Well appearing, obese, non-toxic, in no acute distress. HEAD: Normocephalic, atraumatic. NECK: Supple. No adenopathy, no masses. RESPIRATORY: Airway patent, respirations nonlabored. CARDIOVASCULAR: Regular rate and rhythm without murmurs, rubs, or gallops. Radial pulses 2+ and equal bilaterally. MUSCULOSKELETAL: Linear lacerations to R 2nd digit to distal lateral edge of finger - appeared to be linear skin tears which have been glued with Dermabond. Surrounding skin white and wrinkled, like appearing to be recently wet/moist. No active bleeding. No tenderness to palpation over laceration/glued area. Patient reporting circumferential decreased sharp
== END 2021-11-21 22:08 | disposition home or self-care (01) ==
PROVIDERS: Emergency Provider Emergency Medicine
DX: S61.210D Laceration without foreign body of right index finger without damage to nail, subsequent encounter (principal); R29.898 Other symptoms and signs involving the musculoskeletal system; J45.909 Unspecified asthma, uncomplicated; G62.9 Polyneuropathy, unspecified; F31.9 Bipolar disorder, unspecified; F41.8 Other specified anxiety disorders; F43.10 Post-traumatic stress disorder, unspecified; F17.210 Nicotine dependence, cigarettes, uncomplicated; X58.XXXD Exposure to other specified factors, subsequent encounter
CPT/HCPCS: 99281

== ENCOUNTER 2021-11-28 14:42 | Emergency (ER) | payer OTHER, SELFPAY ==
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
[2021-11-28 14:49] VITALS: BP 110/69; PULSE 105; RESP 16; TEMP 36.4; O2SAT 99
== END 2021-11-28 15:22 | disposition home or self-care (01) ==
PROVIDERS: Emergency Provider Nurse Practitioner Family
DX: R51.9 Headache, unspecified (principal); F17.210 Nicotine dependence, cigarettes, uncomplicated; J45.909 Unspecified asthma, uncomplicated; F41.9 Anxiety disorder, unspecified; F31.9 Bipolar disorder, unspecified
CPT/HCPCS: 99211; G0463

== ENCOUNTER 2021-12-04 11:26 | Emergency (ER) | payer OTHER, SELFPAY ==
--- NOTE | ~2021-12-04 | XR_ITS ---
EXAMINATION: XR chest 2V DATE: 12/04/2021 14:43 INDICATION: Hemoptysis. TECHNIQUE: Frontal and lateral views of the chest were obtained. COMPARISON: Chest 2 views 08/07/2021 FINDINGS: The chest demonstrates clear lungs without pneumonia, pleural effusion, or pneumothorax. Th e heart size is normal. IMPRESSION: 1. No acute cardiopulmonary disease. Reviewed, dictated and finalized at location A.
[2021-12-04 11:34] VITALS: BP 138/84; PULSE 101; RESP 16; TEMP 36.6; O2SAT 99
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
[2021-12-04 13:13] VITALS: BP 130/87; PULSE 96; RESP 20; O2SAT 97
--- NOTE | 2021-12-04 14:26 | ED.URI ---
HPI - URI/Sore Throat General Chief Complaint: Upper Respiratory Infection Stated Complaint: coughing up bloody stuff Time Seen by Provider: 12/04/21 14:26 Source: patient Mode of arrival: ambulatory Limitations: no limitations History of Present Illness HPI Narrative: Patient is a 21-year-old transgender male, presenting for evaluation of cough. Patient reportedly had productive cough today with hemoptysis, stated that he coughed up his lung. Patient reports deep cough this morning. He denies any current fever or chills. Denies current shortness of breath. Patient denies abdominal pain, nausea or vomiting. Patient reports history of this in the past. Patient states that he is not having any current chest pain, no recurrent hemoptysis. Patient is on any anticoagulation. He denies leg swelling or calf pain. Patient denies oral contraceptive use. No chest pain or shortness of breath. Related Data Home Medications Medication Instructions Recorded Confirmed paroxetine HCl 20 mg tablet 20 mg PO QAM 11/06/21 11/06/21 risperidone 2 mg tablet 2 mg PO HS 11/06/21 11/06/21 Allergies Allergy/AdvReac Type Severity Reaction Status Date / Time banana Allergy Severe Anaphylaxis Verified 11/19/21 11:51 cranberry Allergy Severe Hives Verified 11/19/21 11:51 pineapple Allergy Severe Anaphylaxis Verified 11/19/21 11:51 adhesive tape Allergy Mild Rash Verified 11/19/21 11:51 minor Allergy Mild Rash Verified 11/19/21 11:51 latex Allergy Mild Rash Verified 11/19/21 11:51 Review of Systems Review of Systems: CONSTITUTIONAL: Denies fever CARDIOVASCULAR: Denies chest pain RESPIRATORY: Reports productive cough without shortness of breath GASTROINTESTINAL: Denies abdominal pain SKIN: Denies rash MUSCULOSKELETAL: Denies back pain NEUROLOGIC: Denies headache PMFSH Past Medical History Medical History Anxiety Bipolar disorder Depression with anxiety History of asthma Hx of migraines Neuropathy Pseudoseizures PTSD (post-traumatic stress disorder) Surgical History Surgical History History of dilatation and curettage History of tonsillectomy and adenoidectomy [place] teeth extracted Social History Social History Smoking packs per day: 0.5 Smoking cigarettes per day: 10.0 Years smoked: 14 Smoking pack-years: 7.00 Smoking status: Current every day smoker Tobacco type: cigarettes Alcohol intake: former Alcohol use details: 37 days no alcohol use Substance use: former Substance use type: marijuana Other substance usage details: 2-3 1 HITTERS OR A COUPLE PIPES/DAY Last use: last use of methamphetamine 6 months ago, last use of heroin 2 years ago Gender identity (if verbalized by the patient): Transgender Male Additional gender identity comments: has not taken any hormones at this time for transgender to male Sexual Orientation (if Verbalized by the Patient): Bisexual Spiritual care concerns: No Exam Narrative: GENERAL: Awake, alert, conversant HEAD: Normocephalic, atraumatic. EYES: PERRLA and EOMI. ENT: Nares clear, no rhinorrhea or epistaxis. Mucous membranes moist. NECK: Supple. CHEST: No respiratory distress, breathing even and non labored, no crackles, wheezing, no chest wall tenderness HEART: Regular rate, sinus rhythm ABDOMEN:Non distended, non tender EXTREMITIES: Normal range of motion. No edema. SKIN: Warm, dry, no rash. NEURO:No focal deficits. Alert and oriented x3 Course Vital Signs Vital signs: Vital Signs Temperature 36.6 C 12/04/21 11:34 Pulse Rate 101 H 12/04/21 11:34 Respiratory Rate 16 12/04/21 11:34 Blood Pressure 138/84 12/04/21 11:34 Pulse Oximetry 99 12/04/21 11:34 Oxygen Delivery Room Air 12/04/21 11:34 Temperature 36.6 C 12/04/21 11:34 Pulse Rate 96 12/04/21 13:13 Respi
[2021-12-04 14:57] LABS: Basophils Percent Auto 0.3 % (0.2-1.2); Eosinophils Percent Auto 0.3 % (0-4.4); Hematocrit 43.9 % (37.0-47.0); Hemoglobin 14.8 g/dL (12.0-15.0); Immature Granulocyte Absolute 0.03 K/mm3 (0.00-0.031); Immature Granulocyte Percent A 0.3 % (0-0.5); Lymphocytes Percent Auto 25.6 % (18.3-44.2); Mean Corpuscular HGB Conc 33.7 g/dl (32-36); Mean Corpuscular Hemoglobin 28.6 pg (26-34); Mean Corpuscular Volume 84.9 fl (80-100); Mean Platelet Volume 10.1 fl (7.4-10.4); Monocytes Absolute Auto 0.8 K/mm3 (0.1-0.6); Monocytes Percent Auto 7.1 % (2.6-8.5); Neutrophils Absolute Auto 7.5 K/mm3 (1.3-6.7); Neutrophils Percent Auto 66.4 % (45.5-73.1); Platelet Count Result 347 k/mm3 (150-375); Red Blood Count 5.17 M/mm3 (4.2-5.4); Red Cell Distribution Width 13.3 % (11.5-14.5); White Blood Count 11.3 K/mm3 (4.5-10.0)
[2021-12-04 15:06] LABS: Anion Gap 12 mmol/L (8-16); Blood Urea Nitrogen 14 mg/dL (7-17); Calcium 9.9 mg/dL (8.4-10.2); Carbon Dioxide 20 mmol/L (22-30); Chloride 108 mmol/L (98-107); Estimated CRCL calculation 129 ml/min; Estimated Glomerular Filt Rate > 60; Glucose 94 mg/dL (65-110); Potassium 3.9 mmol/L (3.4-5.0); Sodium 140 mmol/L (137-145)
[2021-12-04 15:33] LABS: SARS-CoV-2 RNA PCR Negative
== END 2021-12-04 16:40 | disposition home or self-care (01) ==
PROVIDERS: Emergency Provider Emergency Medicine
DX: J40 Bronchitis, not specified as acute or chronic (principal); F41.8 Other specified anxiety disorders; F31.9 Bipolar disorder, unspecified; F43.10 Post-traumatic stress disorder, unspecified; G62.9 Polyneuropathy, unspecified; F17.210 Nicotine dependence, cigarettes, uncomplicated; F12.90 Cannabis use, unspecified, uncomplicated; Z20.822 Contact with and (suspected) exposure to COVID-19
CPT/HCPCS: 36415; 71046; 80048; 85025; 99283; C9803; U0003; U0005

== ENCOUNTER 2021-12-05 12:49 | Outpatient (CLI) | payer OTHER, SELFPAY | END 2021-12-05 12:50 | disposition home or self-care (01) | LOC: CHSAUDIO 12:51 | PROVIDERS: PCP Physician Assistant; Visit Provider Physician Assistant | DX: H91.91 Unspecified hearing loss, right ear (principal) | CPT/HCPCS: 92557; 92567 ==

== ENCOUNTER 2022-01-15 16:41 | Emergency (ER) | payer OTHER, SELFPAY ==
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
[2022-01-15 16:48] VITALS: BP 115/72; PULSE 123; RESP 18; TEMP 36.8; O2SAT 98
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
== END 2022-01-15 17:31 | disposition home or self-care (01) ==
PROVIDERS: Emergency Provider Nurse Practitioner Family
DX: S60.221A Contusion of right hand, initial encounter (principal); W22.8XXA Striking against or struck by other objects, initial encounter; F41.9 Anxiety disorder, unspecified; F31.9 Bipolar disorder, unspecified; J45.909 Unspecified asthma, uncomplicated; F43.10 Post-traumatic stress disorder, unspecified
CPT/HCPCS: 73130; 99213; G0463

== ENCOUNTER 2022-01-15 20:55 | Emergency (ER) | payer OTHER, SELFPAY ==
[2022-01-15 21:02] VITALS: BP 146/94; PULSE 108; RESP 18; TEMP 36.9; O2SAT 99
--- NOTE | 2022-01-15 22:47 | ED.SKABFB ---
HPI - Skin/Abscess/Foreign Bdy General Chief complaint: Skin/Abscess/Foreign Body Stated complaint: Abcess in Mouth Time Seen by Provider: 01/15/22 22:29 Source: patient Mode of arrival: ambulatory Limitations: no limitations History of Present Illness HPI narrative: This is a 21 year old female to male transgender person that presents to the ER for an area of swelling to the lower lip noted over the last week. Reports she was on antibiotics for about 5 days for this. The area has not improved. Denies fever. Related Data Home Medications Medication Instructions Recorded Confirmed paroxetine HCl 20 mg tablet 20 mg PO QAM 11/06/21 11/06/21 risperidone 2 mg tablet 2 mg PO HS 11/06/21 11/06/21 olanzapine 5 mg disintegrating mg 01/15/22 tablet quetiapine 100 mg tablet mg 01/15/22 testosterone cypionate 200 mg/mL mg 01/15/22 intramuscular oil Allergies Allergy/AdvReac Type Severity Reaction Status Date / Time banana Allergy Severe Anaphylaxis Verified 11/19/21 11:51 cranberry Allergy Severe Hives Verified 11/19/21 11:51 pineapple Allergy Severe Anaphylaxis Verified 11/19/21 11:51 adhesive tape Allergy Mild Rash Verified 11/19/21 11:51 minor Allergy Mild Rash Verified 11/19/21 11:51 latex Allergy Mild Rash Verified 11/19/21 11:51 Review of Systems Review of Systems: CONSTITUTIONAL: Denies fever ENT: Reports swelling to the lip All systems reviewed & are unremarkable except as noted in HPI and below PMFSH Past Medical History Medical History Anxiety Bipolar disorder Depression with anxiety History of asthma Hx of migraines Neuropathy Pseudoseizures PTSD (post-traumatic stress disorder) Surgical History Surgical History History of dilatation and curettage History of tonsillectomy and adenoidectomy [place] teeth extracted Social History Social History Smoking packs per day: 0.5 Smoking cigarettes per day: 10.0 Years smoked: 14 Smoking pack-years: 7.00 Smoking status: Current every day smoker Tobacco type: cigarettes Alcohol intake: former Alcohol use details: 37 days no alcohol use Substance use: former Substance use type: marijuana Other substance usage details: 2-3 1 HITTERS OR A COUPLE PIPES/DAY Last use: last use of methamphetamine 6 months ago, last use of heroin 2 years ago Gender identity (if verbalized by the patient): Transgender Male Additional gender identity comments: has not taken any hormones at this time for transgender to male Sexual Orientation (if Verbalized by the Patient): Bisexual Spiritual care concerns: No Exam Narrative: GENERAL: Well-appearing, well-nourished, and in no acute distress. HEAD: Normocephalic, atraumatic. EYES: EOMI. ENT: Mucous membranes moist. Oropharynx without tonsillar hypertrophy exudate or other lesions. 1cm cystic area adjacent to patient's lower lip piercing. There is no obvious fluctuance or erythema of the lip NECK: Supple. No adenopathy or masses. EXTREMITIES: Normal range of motion. No edema. SKIN: Warm, dry, no rash. NEURO: No focal deficits. Alert and oriented x3. PSYCH: Normal mood and affect Course Vital Signs Vital signs: Vital Signs Temperature 98.5 F 01/15/22 21:02 Pulse Rate 108 H 01/15/22 21:02 Respiratory Rate 18 01/15/22 21:02 Blood Pressure 146/94 H 01/15/22 21:02 Pulse Oximetry 99 01/15/22 21:02 Oxygen Delivery Room Air 01/15/22 21:02 Temperature 98.5 F 01/15/22 21:02 Pulse Rate 108 H 01/15/22 21:02 Respiratory Rate 18 01/15/22 21:02 Blood Pressure 146/94 H 01/15/22 21:02 Pulse Oximetry 99 01/15/22 21:02 Oxygen Delivery Room Air 01/15/22 21:02 MDM - Skin/Abscess/Foreign Bdy MDM Narrative Medical decision making narrative: Patient presents to the emergency department for an area of swe
[2022-01-15 23:10] VITALS: PULSE 72; RESP 16; O2SAT 98
== END 2022-01-15 23:19 | disposition home or self-care (01) ==
PROVIDERS: Emergency Provider Emergency Medicine
DX: K13.0 Diseases of lips (principal); J45.909 Unspecified asthma, uncomplicated; G62.9 Polyneuropathy, unspecified; F41.9 Anxiety disorder, unspecified; F31.9 Bipolar disorder, unspecified; F41.8 Other specified anxiety disorders; F43.10 Post-traumatic stress disorder, unspecified; Z87.891 Personal history of nicotine dependence
CPT/HCPCS: 73130; 99283

== ENCOUNTER 2022-02-04 19:38 | Emergency (ER) | payer OTHER, SELFPAY ==
--- NOTE | ~2022-02-04 | XR_ITS ---
EXAMINATION: XR wrist LT min 3V DATE: 02/04/2022 20:05 INDICATION: Left wrist pain TECHNIQUE: Posteroanterior, ulnar deviation, oblique, and lateral views of the left wrist were obtain ed. COMPARISON: 07/27/2021 FINDINGS: No fracture, dislocation, or subluxation. The bones, soft tissues, and joint spaces are nor mal. IMPRESSION: 1. No acute osseous abnormality. Reviewed, dictated and finalized at location F. [facility]
[2022-02-04 19:49] VITALS: BP 129/74; PULSE 104; RESP 18; TEMP 37.2; O2SAT 100
--- NOTE | 2022-02-04 21:42 | ED.UPPEXIN ---
HPI - Extremity Injury (Upper) General Chief Complaint: Extremity Injury, Upper Stated Complaint: fall, left wrist pain Time Seen by Provider: 02/04/22 21:27 History of Present Illness HPI narrative: Pt tripped and fell land landed on left wrist. Pt complains of pain in left wrist. Pt denies other injury. Related Data Home Medications Medication Instructions Recorded Confirmed paroxetine HCl 20 mg tablet 20 mg PO QAM 11/06/21 11/06/21 risperidone 2 mg tablet 2 mg PO HS 11/06/21 11/06/21 olanzapine 5 mg disintegrating mg 01/15/22 tablet quetiapine 100 mg tablet mg 01/15/22 testosterone cypionate 200 mg/mL mg 01/15/22 intramuscular oil Allergies Allergy/AdvReac Type Severity Reaction Status Date / Time banana Allergy Severe Anaphylaxis Verified 11/19/21 11:51 cranberry Allergy Severe Hives Verified 11/19/21 11:51 pineapple Allergy Severe Anaphylaxis Verified 11/19/21 11:51 adhesive tape Allergy Mild Rash Verified 11/19/21 11:51 minor Allergy Mild Rash Verified 11/19/21 11:51 latex Allergy Mild Rash Verified 11/19/21 11:51 Review of Systems Review of Systems: All systems reviewed & are unremarkable except as noted in HPI and below PMFSH Past Medical History Medical History Anxiety Bipolar disorder Depression with anxiety History of asthma Hx of migraines Neuropathy Pseudoseizures PTSD (post-traumatic stress disorder) Surgical History Surgical History History of dilatation and curettage History of tonsillectomy and adenoidectomy [place] teeth extracted Social History Social History Smoking packs per day: 0.5 Smoking cigarettes per day: 10.0 Years smoked: 14 Smoking pack-years: 7.00 Smoking status: Current every day smoker Tobacco type: cigarettes Alcohol intake: former Alcohol use details: 37 days no alcohol use Substance use: former Substance use type: marijuana Other substance usage details: 2-3 1 HITTERS OR A COUPLE PIPES/DAY Last use: last use of methamphetamine 6 months ago, last use of heroin 2 years ago Gender identity (if verbalized by the patient): Transgender Male Additional gender identity comments: has not taken any hormones at this time for transgender to male Sexual Orientation (if Verbalized by the Patient): Bisexual Spiritual care concerns: No Exam Const: General: healthy appearing Nutritional Appearance: well nourished Orientation/consciousness: patient oriented x3 Limitations: no limitations Eyes: Conjunctivae: conjunctivae normal Pupils: Equal, round and reactive pupils present EOM: EOMs intact bilaterally Neck: Neck: normal visual inspection Skin: General skin exam: normal color Rashes: no rashes Wounds: no wounds Neuro: General: patient oriented x3 and moves all extremities Extrem: General: normal to inspection and no clubbing, cyanosis or edema Other: tender distal radius and ulna no swelling no snuff box tenderness Psych: Mental Status: mental status grossly normal Affect: normal affect Attitude: cooperative Course Vital Signs Vital signs: Vital Signs Temperature 99.0 F 02/04/22 19:49 Pulse Rate 104 H 02/04/22 19:49 Respiratory Rate 18 02/04/22 19:49 Blood Pressure 129/74 02/04/22 19:49 Pulse Oximetry 100 02/04/22 19:49 Oxygen Delivery Room Air 02/04/22 19:49 Temperature 99.0 F 02/04/22 19:49 Pulse Rate 104 H 02/04/22 19:49 Respiratory Rate 18 02/04/22 19:49 Blood Pressure 129/74 02/04/22 19:49 Pulse Oximetry 100 02/04/22 19:49 Oxygen Delivery Room Air 02/04/22 19:49 Discharge Plan Discharge Clinical Impression: Left wrist sprain Patient Disposition: Home, Self-Care Condition: Stable Instructions: Antibiotic Form, Wrist Sprain (ED) Prescriptions: New naproxen [Naprosyn] 500 mg tablet
[2022-02-04] MEDS: NAPROXEN 500 MG TABLET PO (21:54)
== END 2022-02-04 22:16 | disposition home or self-care (01) ==
PROVIDERS: Emergency Provider Emergency Medicine
DX: S63.502A Unspecified sprain of left wrist, initial encounter (principal); J45.909 Unspecified asthma, uncomplicated; G62.9 Polyneuropathy, unspecified; F43.10 Post-traumatic stress disorder, unspecified; F31.9 Bipolar disorder, unspecified; F41.8 Other specified anxiety disorders; F17.210 Nicotine dependence, cigarettes, uncomplicated; W01.0XXA Fall on same level from slipping, tripping and stumbling without subsequent striking against object, initial encounter
CPT/HCPCS: 73110; 99283; A9270

== ENCOUNTER 2022-02-14 01:54 | Emergency (ER) | payer OTHER, SELFPAY ==
--- NOTE | ~2022-02-14 | CT_ITS ---
EXAMINATION: CT abdomen pelvis w con DATE: 02/14/2022 03:13 INDICATION: Mid and epigastric abdominal pain, suprapubic pain. Nausea and vomiting. TECHNIQUE: Computed tomography (CT) of the abdomen and pelvis was performed with 100 CC Omnipaque 350 intravenous contrast. Automated exposure control and iterative reconstruction technique were employe d. Exam dose: 1451.59 mGy-cm total exam DLP. COMPARISON: 10/06/2021 CT abdomen pelvis FINDINGS: The lung bases are clear. Normal heart size. No pericardial or pleural effusion. The gallbladder is contracted. No pericholecystic fluid or fat stranding. Hepatic steatosis. No hepat ic, splenic, pancreatic, adrenal or renal space-occupying mass lesion. At least one small nonobstructing calculus of each kidney is noted. No ureteral calculus or hydrouret eronephrosis. Normal caliber of the abdominal aorta. No intraperitoneal or retroperitoneal or pelvic mass lesion or adenopathy or ascites. The urinary bladder, uterus and adnexal areas are unremarkable. The appendix is not visualized. No bowel obstruction or intraperitoneal free air is detected. Included skeletal structures are unremarkable. IMPRESSION: Hepatic steatosis Minimal nonobstructive bilateral nephrolithiasis Reviewed, dictated and finalized at [facility] Reviewed, dictated and finalized at [facility]. TECHNICIAN
[2022-02-14 02:06] VITALS: BP 140/80; PULSE 112; RESP 18; TEMP 36.8; O2SAT 100
--- NOTE | 2022-02-14 02:19 | ED.ABDPAIN ---
HPI - Abdominal Pain General Chief Complaint: Abdominal Pain Stated Complaint: abd pain,n/v Time Seen by Provider: 02/14/22 02:00 Source: patient Mode of arrival: ambulatory Limitations: no limitations History of Present Illness HPI narrative: Patient is a 21 y/o transgender female who identifies as male who presents to the ED with c/o abdominal pain. She reports she woke up yesterday afternoon around 1 pm with pain in her mid abdomen. Pain has been persistent since then. She has tried naproxen and ibuprofen yesterday w/o relief. Last took pain medicine around 10 pm. She also reports having nausea and 1 episode of emesis. Denies any fever, urinary symptoms, diarrhea, constipation, cough or cold symptoms. Related Data Home Medications Medication Instructions Recorded Confirmed paroxetine HCl 20 mg tablet 20 mg PO QAM 11/06/21 11/06/21 risperidone 2 mg tablet 2 mg PO HS 11/06/21 11/06/21 olanzapine 5 mg disintegrating mg 01/15/22 tablet quetiapine 100 mg tablet mg 01/15/22 testosterone cypionate 200 mg/mL mg 01/15/22 intramuscular oil Allergies Allergy/AdvReac Type Severity Reaction Status Date / Time banana Allergy Severe Anaphylaxis Verified 02/14/22 02:11 cranberry Allergy Severe Hives Verified 02/14/22 02:11 pineapple Allergy Severe Anaphylaxis Verified 02/14/22 02:11 adhesive tape Allergy Mild Rash Verified 02/14/22 02:11 minor Allergy Mild Rash Verified 02/14/22 02:11 latex Allergy Mild Rash Verified 02/14/22 02:11 Review of Systems Review of Systems: CONSTITUTIONAL: Denies fever, chills, or sweats. ENT: Denies rhinorrhea, congestion, sore throat. CARDIOVASCULAR: Denies chest pain. RESPIRATORY: Denies cough or dyspnea. GASTROINTESTINAL: Reports mid ABD pain, N/V. Denies constipation, diarrhea. GENITOURINARY: Denies dysuria or hematuria. All systems reviewed & are unremarkable except as noted in HPI and below PMFSH Past Medical History Medical History Anxiety Bipolar disorder Depression with anxiety History of asthma Hx of migraines Neuropathy Pseudoseizures PTSD (post-traumatic stress disorder) Surgical History Surgical History History of dilatation and curettage History of tonsillectomy and adenoidectomy [place] teeth extracted Social History Social History Smoking packs per day: 0.5 Smoking cigarettes per day: 10.0 Years smoked: 14 Smoking pack-years: 7.00 Smoking status: Current every day smoker Tobacco type: cigarettes Alcohol intake: former Alcohol use details: 37 days no alcohol use Substance use: former Substance use type: marijuana Other substance usage details: 2-3 1 HITTERS OR A COUPLE PIPES/DAY Last use: last use of methamphetamine 6 months ago, last use of heroin 2 years ago Gender identity (if verbalized by the patient): Transgender Male Additional gender identity comments: has not taken any hormones at this time for transgender to male Sexual Orientation (if Verbalized by the Patient): Bisexual Spiritual care concerns: No Exam Narrative: GENERAL: Well appearing, obese, non-toxic, in no acute distress. HEAD: Normocephalic, atraumatic. NECK: Supple. No adenopathy, no masses. RESPIRATORY: Airway patent, respirations nonlabored. Clear to auscultation bilaterally, no rales, rhonchi, wheezing. CARDIOVASCULAR: Regular rate and rhythm without murmurs, rubs, or gallops. Peripheral pulses 2+ and equal bilaterally. ABDOMINAL: Soft, mild tenderness to palpation throughout epigastric region, periumbilical region, and suprapubic region. No rebound tenderness. Nondistended, no hepatosplenomegaly. Normoactive BS. MUSCULOSKELETAL: Moves all extremities. Strength/ROM intact without gross deformities. SKIN: Warm, dry, normal color. No rashes. NEURO: A&O X3. Speech clear. Cranial nerves II-XI
[2022-02-14 02:29] LABS: Basophils Percent Auto 0.3 % (0.2-1.2); Eosinophils Absolute Auto 0.1 K/mm3 (0-0.3); Eosinophils Percent Auto 0.5 % (0-4.4); Hemoglobin 16.3 g/dL (12.0-15.0); Immature Granulocyte Absolute 0.03 K/mm3 (0.00-0.031); Immature Granulocyte Percent A 0.3 % (0-0.5); Lymphocytes Absolute Auto 4.44 K/mm3 (0.9-3.2); Lymphocytes Percent Auto 37.2 % (18.3-44.2); Mean Corpuscular HGB Conc 33.3 g/dl (32-36); Mean Platelet Volume 9.8 fl (7.4-10.4); Monocytes Absolute Auto 0.9 K/mm3 (0.1-0.6); Monocytes Percent Auto 7.4 % (2.6-8.5); Neutrophils Absolute Auto 6.5 K/mm3 (1.3-6.7); Neutrophils Percent Auto 54.3 % (45.5-73.1); Platelet Count Result 442 k/mm3 (150-375); Red Blood Count 5.63 M/mm3 (4.2-5.4); White Blood Count 11.9 K/mm3 (4.5-10.0)
[2022-02-14 02:30] LABS: Appearance Urine Cloudy (Clear); Bilirubin Urine Negative (Negative); Blood Urine 2+ (Negative); Color Urine Yellow (Yellow); Glucose Urine UA Negative (Negative); Ketones Urine Negative (Negative); Leukocyte Esterase Ur Negative LEU/UL (Negative); Nitrate Urine Negative (Negative); Protein Urine Negative (Negative); Specific Grav Ur 1.025 (1.001-1.035); Urobilinogen Urine 0.2 mg/dL (<2.0); pH Urine 6.5 (5.0-9.0)
[2022-02-14] MEDS: SODIUM CHLORIDE 0.9% IV 1,000 ML 999 ML IV CONT (02:32)
[2022-02-14 02:36] LABS: Bacteria Urine Trace /hpf; Mucus Urine Rare /lpf; Squamous Epithelial Cell Urine Occasional /hpf (Few)
[2022-02-14 02:39] LABS: Alanine Aminotransferase 21 U/L (6-35); Alkaline Phosphatase 77 U/L (38-126); Anion Gap 15 mmol/L (8-16); Aspartate Amino Transferase 25 U/L (14-36); Bilirubin,Total 0.4 mg/dL (0.2-1.3); Blood Urea Nitrogen 14 mg/dL (7-17); Calcium 9.6 mg/dL (8.4-10.2); Carbon Dioxide 21 mmol/L (22-30); Chloride 106 mmol/L (98-107); Estimated CRCL calculation 131 ml/min; Estimated Glomerular Filt Rate > 60; Glucose 104 mg/dL (65-110); Lipase 46 U/L (23-300); Potassium 3.7 mmol/L (3.4-5.0); Sodium 142 mmol/L (137-145)
[2022-02-14 02:42] LABS: Add Urine Microscopic? YES
[2022-02-14] MEDS: DICYCLOMINE HCL 10 MG CAPSULE 20 MG PO (03:50)
== END 2022-02-14 04:30 | disposition home or self-care (01) ==
PROVIDERS: Emergency Provider Physician Assistant
DX: J45.909 Unspecified asthma, uncomplicated (principal); G62.9 Polyneuropathy, unspecified; F41.9 Anxiety disorder, unspecified; F31.9 Bipolar disorder, unspecified; F43.10 Post-traumatic stress disorder, unspecified; F17.210 Nicotine dependence, cigarettes, uncomplicated; K76.0 Fatty (change of) liver, not elsewhere classified; N20.0 Calculus of kidney; Z87.442 Personal history of urinary calculi
CPT/HCPCS: 36415; 74177; 80053; 81001; 81025; 83690; 85025; 87086; 87088; 96361; 96374; 99284; A9270; J0131; J7030; Q9967

== ENCOUNTER 2022-03-15 19:01 | Emergency (ER) | payer OTHER, SELFPAY ==
--- NOTE | ~2022-03-15 | XR_ITS ---
XR shoulder LT min 2V DATE: 03/15/2022 19:57 INDICATION: Patient fell on the left shoulder. Lateral pain. TECHNIQUE: 4 views COMPARISON: May 14, 2021 left shoulder FINDINGS: No fracture or dislocation, periosteal reaction or bone destruction. IMPRESSION: No significant abnormality Reviewed, dictated and finalized at [facility] MECHANICAL IMPRESSION: No significant abnormality
[2022-03-15 19:38] VITALS: BP 134/98; PULSE 86; RESP 18; TEMP 36.5; O2SAT 100
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
== END 2022-03-15 20:20 | disposition home or self-care (01) ==
PROVIDERS: Emergency Provider Emergency Medicine; PCP Physician Assistant
DX: S46.912A Strain of unspecified muscle, fascia and tendon at shoulder and upper arm level, left arm, initial encounter (principal); J45.909 Unspecified asthma, uncomplicated; F41.8 Other specified anxiety disorders; G62.9 Polyneuropathy, unspecified; F43.10 Post-traumatic stress disorder, unspecified; F17.210 Nicotine dependence, cigarettes, uncomplicated; W18.39XA Other fall on same level, initial encounter
CPT/HCPCS: 73030; 99283; A4565

== ENCOUNTER 2022-04-02 20:14 | Emergency (ER) | payer OTHER, SELFPAY ==
[2022-04-02 20:26] VITALS: BP 139/86; PULSE 97; RESP 16; TEMP 37; O2SAT 99
[2022-04-02] MEDS: KETOROLAC 30 MG/ML VIAL (*BKC) IV PUSH (21:52)
[2022-04-02] MEDS: diphenhydrAMINE HCl INJ 50 MG/ML VIAL 25 MG IV PUSH (21:53)
[2022-04-02] MEDS: SODIUM CHLORIDE 0.9% IV 500 ML 999 ML IV CONT (21:53)
[2022-04-02] MEDS: PROCHLORPERAZINE EDISYLATE 10 MG/2 ML VIAL 5 MG IV PUSH (22:43)
--- NOTE | 2022-04-02 23:17 | ED.HA ---
HPI - Headache General Chief Complaint: Headache Stated Complaint: blurred vision Time Seen by Provider: 04/02/22 20:48 Source: patient Mode of arrival: ambulatory Limitations: no limitations History of Present Illness HPI Narrative: 22-year-old female to male transgendered person with past medical history of bipolar disorder with psychosis, anxiety, depression, dissociative identity disorder, pseudoseizures who presents today with headache. Headache began this morning at 9 AM and took 90 minutes to reach maximal intensity of 8 out of 10 in severity. She had associated dizziness, nausea, vision changes, confusion. She took ibuprofen which relieved her symptoms until her headache came back around 5 PM. No associated chest pain, shortness of breath, nausea, vomiting, diarrhea, lower extremity swelling. She does state that she has not been sleeping well and had not eaten for 3 days prior to arrival. Related Data Home Medications Medication Instructions Recorded Confirmed paroxetine HCl 20 mg tablet 20 mg PO QAM 11/06/21 11/06/21 risperidone 2 mg tablet 2 mg PO HS 11/06/21 11/06/21 olanzapine 5 mg disintegrating mg 01/15/22 tablet quetiapine 100 mg tablet mg 01/15/22 testosterone cypionate 200 mg/mL mg 01/15/22 intramuscular oil Allergies Allergy/AdvReac Type Severity Reaction Status Date / Time banana Allergy Severe Anaphylaxis Verified 04/02/22 20:31 cranberry Allergy Severe Hives Verified 04/02/22 20:31 pineapple Allergy Severe Anaphylaxis Verified 04/02/22 20:31 adhesive tape Allergy Mild Rash Verified 04/02/22 20:31 minor Allergy Mild Rash Verified 04/02/22 20:31 latex Allergy Mild Rash Verified 04/02/22 20:31 Review of Systems Constitutional: Constitutional: Reports no additional constitutional complaints Eyes: Eyes: Reports photophobia ENT: Reports system reviewed and no additional complaints, except as documented Cardiovascular: Cardiovascular: Reports no additional cardiovascular complaints Respiratory: Respiratory: Reports no additional respiratory complaints Gastrointestinal: Gastrointestinal: Reports nausea Musculoskeletal: Musculoskeletal: Reports no additional musculoskeletal complaints Neurologic: Reports as per HPI [facility] Past Medical History Medical History Anxiety Bipolar disorder Depression with anxiety History of asthma Hx of migraines Neuropathy Pseudoseizures PTSD (post-traumatic stress disorder) Surgical History Surgical History History of dilatation and curettage History of tonsillectomy and adenoidectomy [place] teeth extracted Social History Social History Smoking packs per day: 0.5 Smoking cigarettes per day: 10.0 Years smoked: 14 Smoking pack-years: 7.00 Smoking status: Current every day smoker Tobacco type: cigarettes Alcohol intake: former Alcohol use details: 37 days no alcohol use Substance use: former Substance use type: marijuana Other substance usage details: 2-3 1 HITTERS OR A COUPLE PIPES/DAY Last use: last use of methamphetamine 6 months ago, last use of heroin 2 years ago Gender identity (if verbalized by the patient): Transgender Male Additional gender identity comments: has not taken any hormones at this time for transgender to male Sexual Orientation (if Verbalized by the Patient): Bisexual Spiritual care concerns: No Exam Narrative: GENERAL: Well-appearing, well-nourished, and in no acute distress. HEAD: Normocephalic, atraumatic. EYES: PERRLA and EOMI. NECK: Supple. CHEST: Clear to auscultation. No respiratory distress. HEART: Regular rate and rhythm. No murmur heard. Normal peripheral pulses. ABDOMEN: Soft, nontender, nondistended, normal active bowel sounds. EXTREMITIES: Normal range of motion. No edema. SKIN: Warm, dry, no rash. NEURO: No focal d
[2022-04-02 23:56] VITALS: BP 124/67; PULSE 72; RESP 16; TEMP 36.7; O2SAT 96
== END 2022-04-03 00:02 | disposition home or self-care (01) ==
PROVIDERS: Emergency Provider Family Medicine; PCP Physician Assistant
DX: G43.909 Migraine, unspecified, not intractable, without status migrainosus (principal); F17.210 Nicotine dependence, cigarettes, uncomplicated; F41.9 Anxiety disorder, unspecified; F31.9 Bipolar disorder, unspecified; J45.909 Unspecified asthma, uncomplicated
CPT/HCPCS: 96361; 96374; 96375; 99284; J0780; J1200; J1885; J7040

== ENCOUNTER 2022-05-15 17:00 | Emergency (ER) | payer OTHER, SELFPAY ==
--- NOTE | 2022-05-15 17:02 | ED.UPPEXIN ---
HPI - Extremity Injury (Upper) General Chief Complaint: Extremity Injury, Upper Stated Complaint: L WRIST SWELLING Time Seen by Provider: 05/15/22 17:02 Source: patient and RN notes reviewed History of Present Illness HPI narrative: Patient is a 22-year-old female who presents to the Urgent Care with complaints of left wrist swelling and pain. Patient denies any new injury. States that she was getting her hair done and sitting at her computer desk when she realized the swelling and pain. Patient has not been wearing her wrist splint and states that she has lost place of her Abraham wraps. Patient does have a history of left wrist tendinitis. Patient had negative left wrist x-rays in December and July. No other acute complaints. Patient states that just started at 2:00 p.m. this afternoon. No acute distress noted. Patient aware plan of care. Some parts of this dictation were generated by voice recognition software and may contain typographical and/or grammatical inaccuracies. Related Data Home Medications Medication Instructions Recorded Confirmed paroxetine HCl 20 mg tablet 20 mg PO QAM 11/06/21 11/06/21 risperidone 2 mg tablet 2 mg PO HS 11/06/21 11/06/21 olanzapine 5 mg disintegrating mg 01/15/22 tablet quetiapine 100 mg tablet mg 01/15/22 testosterone cypionate 200 mg/mL mg 01/15/22 intramuscular oil Allergies Allergy/AdvReac Type Severity Reaction Status Date / Time banana Allergy Severe Anaphylaxis Verified 04/02/22 20:31 cranberry Allergy Severe Hives Verified 04/02/22 20:31 pineapple Allergy Severe Anaphylaxis Verified 04/02/22 20:31 adhesive tape Allergy Mild Rash Verified 04/02/22 20:31 minor Allergy Mild Rash Verified 04/02/22 20:31 latex Allergy Mild Rash Verified 04/02/22 20:31 Review of Systems Review of Systems: CONSTITUTIONAL: Denies fever, chills, or sweats. EYES: Denies visual changes, redness, or discharge. ENT: Denies rhinorrhea, congestion, sore throat, or otalgia. CARDIOVASCULAR: Denies chest pain, palpitations, or edema. RESPIRATORY: Denies cough or dyspnea. GASTROINTESTINAL: Denies abdominal pain, nausea, vomiting, or diarrhea. GENITOURINARY: Denies dysuria or hematuria. SKIN: Denies rash or itching. MUSCULOSKELETAL: Reports of left wrist pain and swelling NEUROLOGIC: Denies headache, numbness, or weakness. All other systems reviewed are negative, except as documented in HPI. [facility] Past Medical History Medical History Anxiety Bipolar disorder Depression with anxiety History of asthma Hx of migraines Neuropathy Pseudoseizures PTSD (post-traumatic stress disorder) Surgical History Surgical History History of dilatation and curettage History of tonsillectomy and adenoidectomy [place] teeth extracted Social History Social History Smoking packs per day: 0.5 Smoking cigarettes per day: 10.0 Years smoked: 14 Smoking pack-years: 7.00 Smoking status: Current every day smoker Tobacco type: cigarettes Alcohol intake: former Alcohol use details: 37 days no alcohol use Substance use: former Substance use type: marijuana Other substance usage details: 2-3 1 HITTERS OR A COUPLE PIPES/DAY Last use: last use of methamphetamine 6 months ago, last use of heroin 2 years ago Living arrangements: with family Gender identity (if verbalized by the patient): Transgender Male Additional gender identity comments: has not taken any hormones at this time for transgender to male Sexual Orientation (if Verbalized by the Patient): Bisexual Spiritual care concerns: No Comments At the time of my signature, I reviewed and agree with the nursing past medical, surgical, social, and family history. There is no relevant family history pertinent to the patient complaint. Exam Narrative: GENERAL: This is a well-nourished,
[2022-05-15 17:08] VITALS: BP 118/90; PULSE 104; RESP 20; TEMP 36.6; O2SAT 99
== END 2022-05-15 17:30 | disposition home or self-care (01) ==
PROVIDERS: Emergency Provider Nurse Practitioner Family
DX: M77.8 Other enthesopathies, not elsewhere classified (principal); F17.210 Nicotine dependence, cigarettes, uncomplicated
CPT/HCPCS: 99213; G0463

== ENCOUNTER 2022-06-28 20:07 | Emergency (ER) | payer OTHER, SELFPAY ==
[2022-06-28 20:23] VITALS: BP 131/84; PULSE 105; RESP 18; TEMP 37; O2SAT 99
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
[2022-06-28] MEDS: FAMOTIDINE 20 MG TABLET 40 MG PO (22:30)
[2022-06-28] MEDS: diphenhydrAMINE HCl CAP 25 MG CAPSULE 50 MG PO (22:30)
[2022-06-28] MEDS: predniSONE 20 MG TABLET 40 MG PO (23:36)
[2022-06-29 01:38] VITALS: BP 121/78; PULSE 84; RESP 16; O2SAT 97
== END 2022-06-29 01:45 | disposition home or self-care (01) ==
PROVIDERS: Emergency Provider Physician Assistant
DX: R21 Rash and other nonspecific skin eruption (principal); J45.909 Unspecified asthma, uncomplicated; G62.9 Polyneuropathy, unspecified; F31.9 Bipolar disorder, unspecified; F41.8 Other specified anxiety disorders; F43.10 Post-traumatic stress disorder, unspecified; F17.210 Nicotine dependence, cigarettes, uncomplicated
CPT/HCPCS: 99283; A9270; J7512

== ENCOUNTER 2022-06-29 19:08 | Emergency (ER) | payer OTHER, SELFPAY ==
[2022-06-29 19:10] VITALS: BP 134/85; PULSE 100; RESP 18; TEMP 36.6; O2SAT 99
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
[2022-06-29 20:10] VITALS: BP 128/86; PULSE 100; RESP 16; O2SAT 98
[2022-06-29] MEDS: predniSONE 20 MG TABLET 60 MG PO (20:17)
[2022-06-29 20:29] VITALS: BP 130/84; PULSE 100; RESP 16; O2SAT 100
== END 2022-06-29 20:32 | disposition home or self-care (01) ==
PROVIDERS: Emergency Provider Emergency Medicine
DX: L30.9 Dermatitis, unspecified (principal); J45.909 Unspecified asthma, uncomplicated; G62.9 Polyneuropathy, unspecified; F41.9 Anxiety disorder, unspecified; F31.9 Bipolar disorder, unspecified; F43.10 Post-traumatic stress disorder, unspecified; F17.210 Nicotine dependence, cigarettes, uncomplicated
CPT/HCPCS: 99283; J7512

== ENCOUNTER 2022-07-07 17:28 | Emergency (ER) | payer OTHER, SELFPAY ==
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
--- NOTE | ~2022-07-07 | XR_ITS ---
EXAMINATION: XR wrist LT 2V DATE: 07/07/2022 19:42 INDICATION: Left wrist pain post trauma TECHNIQUE: Posteroanterior and lateral views of the left wrist were obtained. COMPARISON: 02/04/2022 FINDINGS: Alignment is normal. No fracture. Joint spaces are normal. Soft tissues are unremarkable. IMPRESSION: 1. Negative left wrist radiographs. Reviewed, dictated and finalized at location A.
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
--- NOTE | ~2022-07-07 | XR_ITS ---
EXAMINATION: XR wrist RT 2V DATE: 07/07/2022 19:42 INDICATION: Right wrist pain post trauma TECHNIQUE: Posteroanterior and lateral views of the right wrist were obtained. COMPARISON: Hand radiographs dated between 01/15/2022 and 10/05/2020 FINDINGS: Alignment is normal. No fracture. Joint spaces are normal. Chronic mild cystic change with thin scler otic margins at the distal pole of the scaphoid. Soft tissues are unremarkable. IMPRESSION: 1. No acute osseous abnormality. Reviewed, dictated and finalized at location A.
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
[2022-07-07 17:30] VITALS: BP 128/79; PULSE 115; RESP 20; TEMP 36.9; O2SAT 100
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
[2022-07-07] MEDS: ACETAMINOPHEN 500 MG TABLET 1000 MG PO (19:49)
[2022-07-07] MEDS: SODIUM CHLORIDE 0.9% IV 1,000 ML 999 ML IV CONT (19:49)
[2022-07-07] MEDS: KETOROLAC 30 MG/ML VIAL (*BKC) IV PUSH (19:49)
[2022-07-07] MEDS: CYCLOBENZAPRINE HCL 10 MG TABLET PO (19:49)
[2022-07-07 19:58] LABS: Basophils Absolute Auto 0.1 K/mm3 (0.0-0.1); Basophils Percent Auto 0.5 % (0.2-1.2); Eosinophils Percent Auto 0.1 % (0-4.4); Hematocrit 50.5 % (37.0-47.0); Hemoglobin 16.4 g/dL (12.0-15.0); Immature Granulocyte Absolute 0.06 K/mm3 (0.00-0.031); Immature Granulocyte Percent A 0.4 % (0-0.5); Lymphocytes Absolute Auto 3.67 K/mm3 (0.9-3.2); Lymphocytes Percent Auto 23.9 % (18.3-44.2); Mean Corpuscular HGB Conc 32.5 g/dl (32-36); Mean Corpuscular Hemoglobin 27.1 pg (26-34); Mean Corpuscular Volume 83.5 fl (80-100); Mean Platelet Volume 9.3 fl (7.4-10.4); Monocytes Absolute Auto 0.9 K/mm3 (0.1-0.6); Monocytes Percent Auto 5.9 % (2.6-8.5); Neutrophils Absolute Auto 10.6 K/mm3 (1.3-6.7); Neutrophils Percent Auto 69.2 % (45.5-73.1); Platelet Count Result 355 k/mm3 (150-375); Red Blood Count 6.05 M/mm3 (4.2-5.4); Red Cell Distribution Width 16.7 % (11.5-14.5); White Blood Count 15.3 K/mm3 (4.5-10.0)
[2022-07-07 20:04] LABS: Appearance Urine Cloudy (Clear); Bacteria Urine Rare /hpf; Bilirubin Urine Negative (Negative); Blood Urine 3+ (Negative); Color Urine Yellow (Yellow); Glucose Urine UA Negative (Negative); Ketones Urine Trace mg/dL (Negative); Leukocyte Esterase Ur Trace LEU/UL (Negative); Nitrate Urine Negative (Negative); Protein Urine Trace mg/dL (Negative); RBC Urine 21-50 /hpf (0-2); Specific Grav Ur 1.026 (1.001-1.035); Squamous Epithelial Cell Urine Occasional /hpf (Few)
[2022-07-07 20:07] LABS: Alanine Aminotransferase 23 U/L (6-35); Albumin Level 4.5 g/dL (3.5-5.1); Alkaline Phosphatase 83 U/L (38-126); Anion Gap 9 mmol/L (8-16); Aspartate Amino Transferase 28 U/L (14-36); Bilirubin,Total 0.7 mg/dL (0.2-1.3); Blood Urea Nitrogen 14 mg/dL (7-17); Calcium 9.3 mg/dL (8.4-10.2); Carbon Dioxide 27 mmol/L (22-30); Chloride 102 mmol/L (98-107); Estimated CRCL calculation 131 ml/min; Estimated Glomerular Filt Rate > 60; Glucose 101 mg/dL (65-110); Lipase 43 U/L (23-300); Potassium 3.5 mmol/L (3.4-5.0); Sodium 138 mmol/L (137-145)
[2022-07-07 20:08] LABS: Add Urine Microscopic? YES
[2022-07-07 21:24] VITALS: BP 128/78; PULSE 92; O2SAT 99
== END 2022-07-07 21:27 | disposition home or self-care (01) ==
PROVIDERS: Emergency Provider Physician Assistant
DX: S69.92XA Unspecified injury of left wrist, hand and finger(s), initial encounter (principal); S69.91XA Unspecified injury of right wrist, hand and finger(s), initial encounter; S39.91XA Unspecified injury of abdomen, initial encounter; J45.909 Unspecified asthma, uncomplicated; G62.9 Polyneuropathy, unspecified; F31.9 Bipolar disorder, unspecified; F41.8 Other specified anxiety disorders; F43.10 Post-traumatic stress disorder, unspecified; V03.10XA Pedestrian on foot injured in collision with car, pick-up truck or van in traffic accident, initial encounter; F17.210 Nicotine dependence, cigarettes, uncomplicated
CPT/HCPCS: 36415; 71101; 73100; 73521; 74177; 80053; 81001; 81025; 83690; 85025; 87086; 87088; 96361; 96374; 99284; A9270; J1885; J7030; Q9967

== ENCOUNTER 2023-01-15 01:39 | Day surgery (SDC) | payer OTHER, SELFPAY ==
[2023-01-01 12:00] VITALS: BMI 43.2
--- NOTE | 2023-01-01 12:08 | PC.NURSE ---
Report to the Outpatient Waiting Room, entrance under the green pavilion located off [facility], at time 6:00 on date 01/15/23. Planned Procedure Time: 7:30. Time changes happen often and if your time is changed the preop area will call you the afternoon before. - You and your visitor will be asked to self-screen and do not enter if you have any COVID symptoms. - A mask is optional within the hospital at this time. Patients may have clear liquids (water, carbonated beverages, clear teas, apple juice) until 3 hours prior to surgery (4:30) with a maximum of 20 ounces. - No food from midnight until time of surgery Take the following medications with a SIP of water the morning of surgery:BUPROPION, PAROXETINE, PAIN PILL IF NEEDED DO NOT STOP ANY OF YOUR OTHER PRESCRIPTION MEDICATIONS PRIOR TO SURGERY ?EXCEPT THE FOLLOWING Medications to discontinue per physician: N/A Date to take last dose: N/A Please no make-up, nail tamazight, hairspray, perfume, deodorant, or body powder the day of surgery. No jewelry (including any body piercings) or valuables the day of surgery, leave them at home. Please take a shower or bath the night before, or the morning of, surgery with an antibacterial soap. Wear comfortable, loose fitting clothing. - Jewelry must be removed prior to entering the operating room. Rings and piercings that are not removed may be cut off. - The hospital will not accept responsibility for valuables. - Please leave all valuables, including medications, at home the day of surgery. If you are going home after surgery, a licensed driver retraining instructor must drive you home. - NO public transportation without another adult if you receive anesthesia. - We recommend that an adult stay with you for 24 hours following discharge. - We also recommend that you do not drive, make important decision, drink alcoholic beverages, or take any drugs that were not prescribed by your health care provider for at least 24 hours after your discharge time. Follow any additional instructions given to you from your surgeon. If you or anyone in your household have experienced Covid symptoms in the past week, please notify your surgeon or the nurse liaison at the phone number below for possible testing. Telephone instructions given to PT - MARTINEZ COLVIN and asked if any additional questions and then verbalized understanding. Patient advised to call surgeon office or pre surgery nurse liaison [phone] if any additional questions.
[2023-01-15] VITALS (19 sets, daily range): BP systolic 102–151; BP diastolic 51–97; PULSE 72–110; RESP 12–24; TEMP 36.3–37.1; O2SAT 92–100
--- NOTE | 2023-01-15 05:59 | PM.IMHP ---
H&P: HPI History of Present Illness Date/Time: 01/15/23 05:59 Chief Complaint: Intractable pelvic pain Narrative: 22-year-old transitioning female to male for robotic hysterectomy and bilateral salpingo-oophorectomy secondary to intractable pelvic pain. Dony is had chronic and severe pelvic pain. Presently and Depo-Provera. Refused any kind of hormonal treatment for this pelvic pain. Risks benefits were all reviewed. FORMERLY [facility], [facility] Past Medical History Medical History Anxiety Bipolar disorder Depression with anxiety History of asthma Hx of migraines Neuropathy Pseudoseizures PTSD (post-traumatic stress disorder) Surgical History Surgical History History of dilatation and curettage History of tonsillectomy and adenoidectomy [place] teeth extracted Social History Social History Smoking packs per day: 1 Smoking cigarettes per day: 20.0 Years smoked: 15 Smoking pack-years: 15.00 Smoking status: Current every day smoker Tobacco type: cigarettes Alcohol intake: current Drinks per week: 2 Alcohol use details: 37 days no alcohol use Substance use: current Substance use type: marijuana Other substance usage details: every day or two. Last use: last use of methamphetamine 6 months ago, last use of heroin 2 years ago Living arrangements: with family Gender identity (if verbalized by the patient): Male Additional gender identity comments: has not taken any hormones at this time for transgender to male Sexual Orientation (if Verbalized by the Patient): Bisexual Spiritual care concerns: No Meds Home Medications and Allergies Home Medications Medication Instructions Recorded Confirmed Type paroxetine HCl 20 mg tablet 20 mg PO QAM 11/06/21 01/01/23 History risperidone 2 mg tablet 2 mg PO HS 11/06/21 01/01/23 History aripiprazole 400 mg intramuscular 400 mg IM MONTHLY 01/01/23 01/01/23 History suspension,extended release (Debbylity Maintena) atomoxetine 60 mg capsule 60 mg PO DAILY 01/01/23 01/01/23 History bupropion HCl 150 mg tablet,12 hr 150 mg PO DAILY 01/01/23 01/01/23 History sustained-release hydrocodone 5 mg-acetaminophen 325 1 tablet PO Q6H PRN Pain 01/01/23 01/01/23 History mg tablet testosterone cypionate 200 mg/mL 100 mg subcut WEEKLY 01/01/23 01/01/23 History intramuscular oil Allergies Allergy/AdvReac Type Severity Reaction Status Date / Time banana Allergy Severe Anaphylaxis Verified 01/15/23 05:58 cranberry Allergy Severe Hives Verified 01/15/23 05:58 pineapple Allergy Severe Anaphylaxis Verified 01/15/23 05:58 adhesive tape Allergy Mild Rash Verified 01/15/23 05:58 minor Allergy Mild Rash Verified 01/15/23 05:58 latex Allergy Mild Rash Verified 01/15/23 05:58 methylprednisolone Allergy Rash Verified 01/15/23 05:58 tizanidine Allergy Rash Verified 01/15/23 05:58 ondansetron [From Zofran] AdvReac Other Verified 01/15/23 05:58 Exam Const: General: cooperative, healthy appearing and comfortable Nutritional Appearance: overweight Orientation/consciousness: oriented to person, oriented to place and oriented to time HENMT: Head: normal to inspection Resp: Effort & Inspection: normal respiratory effort Cardio: Rate: regular rate Rhythm: regular rhythm Heart sounds: S1 normal heart sound present and S2 normal heart sound present GI: Inspection: normal to inspection : External Female Exam: normal external appearance Speculum Exam - Vagina: normal appearance of the vagina Bimanual exam- vagina & uterus: Uterine tenderness Bimanual Exam- Adnexa, other: tender bilaterally Assessment and Plan Assessment and plan (1) Pelvic pain: Code(s): R10.2 - Pelvic and perineal pain Status: Acute Plan Robotic total vaginal hysterectomy and bilateral salpingo-oophorectom
--- NOTE | 2023-01-15 06:02 | WPDHPUPDATE1 ---
History and Physical Update Update Date/Time: 01/15/23 06:02 History and Physical has been reviewed, including an updated exam of the patient. There are NO changes in the patient's condition. Risks, benefits, and alternatives have been discussed and questions answered. Patient agrees to proceed with procedure.
[2023-01-15] MEDS: LACTATED RINGERS 1,000 ML 30 ML IV CONT ×2 (06:46→09:56)
[2023-01-15] MEDS: ACETAMINOPHEN 500 MG TABLET 1000 MG PO (06:47)
[2023-01-15 06:48] LABS: Basophils Absolute Auto 0.1 K/mm3 (0.0-0.1); Basophils Percent Auto 0.6 % (0.2-1.2); Eosinophils Absolute Auto 0.1 K/mm3 (0-0.3); Eosinophils Percent Auto 1.1 % (0-4.4); Hematocrit 47.5 % (37.0-47.0); Hemoglobin 15.3 g/dL (12.0-15.0); Immature Granulocyte Absolute 0.06 K/mm3 (0.00-0.031); Immature Granulocyte Percent A 0.6 % (0-0.5); Lymphocytes Absolute Auto 3.65 K/mm3 (0.9-3.2); Lymphocytes Percent Auto 35.9 % (18.3-44.2); Mean Corpuscular HGB Conc 32.2 g/dl (32-36); Mean Corpuscular Hemoglobin 27.4 pg (26-34); Mean Platelet Volume 9.7 fl (7.4-10.4); Monocytes Absolute Auto 0.7 K/mm3 (0.1-0.6); Monocytes Percent Auto 6.8 % (2.6-8.5); Neutrophils Absolute Auto 5.6 K/mm3 (1.3-6.7); Platelet Count Result 362 k/mm3 (150-375); Red Blood Count 5.59 M/mm3 (4.2-5.4); Red Cell Distribution Width 14.6 % (11.5-14.5); White Blood Count 10.2 K/mm3 (4.5-10.0)
[2023-01-15] MEDS: KETOROLAC 15 MG/ML VIAL (*BKC) IV PUSH (06:49)
--- NOTE | 2023-01-15 07:08 | WPDANESEPPF ---
Anes - Initial Pre Proc Eval Procedure: Operation Date: 01/15/23 07:30 Proposed Procedures p Robotic Assisted Total Vaginal Hysterectomy with Bilateral Salpingo-Oophorectomy - Leo Reynoso MD Date/Time: 01/15/23 07:08 Surgeon: Leo Reynoso MD Pre Op Diagnosis: pelvic pain, enlarged uterus Patient Data Age: 22 Gender: F Height: 1.65 m Weight: 117.95 kg Allergies Allergy/AdvReac Type Severity Reaction Status Date / Time banana Allergy Severe Anaphylaxis Verified 01/15/23 05:58 cranberry Allergy Severe Hives Verified 01/15/23 05:58 pineapple Allergy Severe Anaphylaxis Verified 01/15/23 05:58 adhesive tape Allergy Mild Rash Verified 01/15/23 05:58 minor Allergy Mild Rash Verified 01/15/23 05:58 latex Allergy Mild Rash Verified 01/15/23 05:58 methylprednisolone Allergy Rash Verified 01/15/23 05:58 tizanidine Allergy Rash Verified 01/15/23 05:58 ondansetron [From Zofran] AdvReac Other Verified 01/15/23 05:58 Home Medications Medication Instructions Recorded Confirmed Type paroxetine HCl 20 mg tablet 20 mg PO QAM 11/06/21 01/15/23 History risperidone 2 mg tablet 2 mg PO HS 11/06/21 01/15/23 History aripiprazole 400 mg intramuscular 400 mg IM MONTHLY 01/01/23 01/15/23 History suspension,extended release (Abilifnestor Maintena) atomoxetine 60 mg capsule 60 mg PO DAILY 01/01/23 01/15/23 History bupropion HCl 150 mg tablet,12 hr 150 mg PO DAILY 01/01/23 01/15/23 History sustained-release hydrocodone 5 mg-acetaminophen 325 1 tablet PO Q6H PRN Pain 01/01/23 01/15/23 History mg tablet testosterone cypionate 200 mg/mL 100 mg subcut WEEKLY 01/01/23 01/15/23 History intramuscular oil hydrocodone 5 mg-acetaminophen 325 1 tablet PO Q4H PRN pain #30 tabs 01/15/23 Rx mg tablet Laboratory Tests 01/15/23 06:41 WBC 10.2 H K/mm3 (4.5-10.0) RBC 5.59 H M/mm3 (4.2-5.4) Hgb 15.3 H g/dL (12.0-15.0) Hct 47.5 H % (37.0-47.0) MCV 85.0 fl (80-100) MCH 27.4 pg (26-34) MCHC 32.2 g/dl (32-36) RDW 14.6 H % (11.5-14.5) Plt Count 362 k/mm3 (150-375) MPV 9.7 fl (7.4-10.4) Immature Gran % (Auto) 0.6 H % (0-0.5) Neut % (Auto) 55.0 % (45.5-73.1) Lymph % (Auto) 35.9 % (18.3-44.2) [place] % (Auto) 6.8 % (2.6-8.5) Eos % (Auto) 1.1 % (0-4.4) Baso % (Auto) 0.6 % (0.2-1.2) Lymph # (Auto) 3.65 H K/mm3 (0.9-3.2) [place] # (Auto) 0.7 H K/mm3 (0.1-0.6) Eos # (Auto) 0.1 K/mm3 (0-0.3) Baso # (Auto) 0.1 K/mm3 (0.0-0.1) Abs Immat Gran (auto) 0.06 H K/mm3 (0.00-0.031) Absolute Neuts (auto) 5.6 K/mm3 (1.3-6.7) Absolute Nucleated RBC 0.0 K/mm3 (0.0-0.012) Nucleated RBC % 0.0 % (0.0-0.2) Patient hx anesthesia problems: other (does not wake up well; combative) Family hx anesthesia problems: none Results Review: All pre-operative results and documents have been reviewed as part of the pre-operative evaluation. [facility] Past Medical History Medical History Anxiety Bipolar disorder Depression with anxiety History of asthma Hx of migraines Neuropathy Pseudoseizures PTSD (post-traumatic stress disorder) Surgical History Surgical History History of dilatation and curettage History of tonsillectomy and adenoidectomy [place] teeth extracted Social History Social History Smoking packs per day: 1 Smoking cigarettes per day: 20.0 Years smoked: 15 Smoking pack-years: 15.00 Smoking status: Current every day smoker Tobacco type: cigarettes Alcohol intake: current Drinks per week: 2 Alcohol use details: 37 days no alcohol use Substance use: current Substance use type: marijuana Other substance usage details: every day or two. Last use: last use of methamphetamine 6 months ago, last u
[2023-01-15] MEDS: ceFAZolin 2 GM/D5W 50 ML 2 GM/50 ML BAG IVPB (07:24)
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
--- NOTE | 2023-01-15 08:29 | P.DS_ITS ---
DS: Admitting Diagnosis Discharge Date 01/16/2023 Admitting Diagnosis Pelvic pain DS: Discharge Diagnosis Discharge Diagnosis (1) Urinary tract infection: Code(s): N39.0 - Urinary tract infection, site not specified Status: Acute DS: Summary Hospital Course Reason for hospitalization: Patient was admitted for robotic total vaginal hysterectomy and bilateral salpingo-oophorectomy on 01/15/2023. Hospital Course: Patient underwent an unremarkable procedure as above on 01/15/2023. His hospital course was unremarkable. She remained afebrile. He was up, voiding without difficulty, ambulating, eating regular diet, and generally without complaints. Time Spent with Patient Time attestation: Total time spent providing and/or coordinating discharge services: Exam Const: General: cooperative, healthy appearing and comfortable Orientation/consciousness: oriented to person, oriented to place and oriented to time HENMT: Head: normal to inspection Resp: Effort & Inspection: normal respiratory effort Cardio: Rate: regular rate Rhythm: regular rhythm Heart sounds: S1 normal heart sound present and S2 normal heart sound present GI: Inspection: normal to inspection and incision (Wounds are clean dry and intact) DS: Data Data Completed and Pending Pending studies at discharge: Pending at discharge 01/15/23 08:06 Surgical [PTH] Routine Labs on day of discharge: Labs from last 24 hours 01/15/23 06:41 WBC 10.2 H RBC 5.59 H Hgb 15.3 H Hct 47.5 H MCV 85.0 MCH 27.4 MCHC 32.2 RDW 14.6 H Plt Count 362 MPV 9.7 Immature Gran % (Auto) 0.6 H Neut % (Auto) 55.0 Lymph % (Auto) 35.9 [place] % (Auto) 6.8 Eos % (Auto) 1.1 Baso % (Auto) 0.6 Lymph # (Auto) 3.65 H [place] # (Auto) 0.7 H Eos # (Auto) 0.1 Baso # (Auto) 0.1 Abs Immat Gran (auto) 0.06 H Absolute Neuts (auto) 5.6 Absolute Nucleated RBC 0.0 Nucleated RBC % 0.0 Blood Type O Positive Antibody Screen Negative Discharge Plan Discharge Patient Disposition: Home, Self-Care Stand Alone Forms: General Discharge Instructions Follow-up/Referrals: Leo Hassan MD [Physician] - Discharge Medications: New hydrocodone-acetaminophen 5-325 mg tablet 1 tablet PO Q4H PRN (Reason: pain) Qty: 30 0RF No Action risperidone 2 mg tablet 2 mg PO HS paroxetine HCl 20 mg tablet 20 mg PO QAM hydrocodone-acetaminophen 5-325 mg tablet 1 tablet PO Q6H PRN (Reason: Pain) atomoxetine 60 mg capsule 60 mg PO DAILY bupropion HCl 150 mg tablet sustained-release 12 hr 150 mg PO DAILY Abilify Maintena 400 mg suspension,extended rel recon 400 mg IM MONTHLY Patient Comments: TAKES MID-END OF MONTH testosterone cypionate 200 mg/mL oil 100 mg subcut WEEKLY Patient Comments: TAKES ON FRIDAY
[2023-01-15] MEDS: fentaNYL CITRATE INJ (*CRX) 100 MCG/2 ML VIAL 25 MCG IV PUSH ×4 (09:08→09:14)
[2023-01-15] MEDS: HYDROmorphone HCL INJ (*CRX) 1 MG/ML SYR 0.5 MG IV PUSH ×6 (09:18→10:18)
--- NOTE | 2023-01-15 10:46 | ADMGEN ---
This patient, Dony Aguilar, was admitted to [facility] Surg Room 317-02. Patient/family oriented to hospital policies and general routines including ID bracelet, bed and alarms, visiting hours, pain management, procedures, bathroom and other care routines, personal items, smoking policy, room service/diet, and visiting hours. Information on how to activate the Rapid Response Team has been discussed. Patient/Family are encouraged to report perceived risks to care and to ask questions if they do not understand what they are told or what they should do.
[2023-01-15] MEDS: HYDROcodone/acetaminophen (*CRX) 10-325 MG TABLET 1 TAB PO ×3 (10:58→18:15)
[2023-01-15] MEDS: DEXTROSE 5%/LACTATED RINGERS 1,000 ML 125 ML IV CONT (11:13)
[2023-01-15] MEDS: KETOROLAC 30 MG/ML VIAL (*BKC) IV PUSH ×3 (11:54→21:51)
[2023-01-15] MEDS: DOCUSATE SODIUM 100 MG CAPSULE PO (11:55)
[2023-01-15] MEDS: ENOXAPARIN 40 MG/0.4 ML SYRINGE SUB-Q (11:56)
[2023-01-15] MEDS: IBUPROFEN 600 MG TABLET PO (12:47)
[2023-01-15] MEDS: PROMETHAZINE HCL 25 MG/ML AMPUL 12.5 MG IV PUSH (13:46)
[2023-01-15] MEDS: MORPHINE SULFATE (*CRX) 2 MG/ML INJ IV PUSH (13:47)
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
[2023-01-15] MEDS: risperiDONE 1 MG TABLET 2 MG PO (20:00)
[2023-01-16] MEDS: HYDROcodone/acetaminophen (*CRX) 10-325 MG TABLET 1 TAB PO ×2 (01:39→08:13)
[2023-01-16 03:43] VITALS: BP 118/66; PULSE 109; RESP 18; TEMP 36.9; O2SAT 97
--- NOTE | 2023-01-16 05:58 | PM.GYNPNOP ---
INSTANT PRINT OPERATOR - A/P Postoperative Procedures: Procedures Operation Date: 01/15/23 07:30 Actual Procedure Side Surgeon p Robotic Assisted Total Vaginal Hysterectomy with Bilateral Salpingo-Oophorectomy Bilateral Leo Reynoso MD Postoperative day: 1 Postoperative status: doing well Postoperative plan: routine post-op care, ambulate, advance diet and discharge Time Spent With Patient Time: Total time spent is greater than 50% in coordination of care (as documented) at patient's floor/unit and/or counseling patient: Time with patient: less than 15 minutes INSTANT PRINT OPERATOR- PN:Subj Post-Op Subjective Date/time seen: 01/16/23 05:58 Subjective: patient is tolerating oral intake and pain not well controlled INSTANT PRINT OPERATOR - PN: Obj Data Vital Signs Vital Signs: Vital Signs - 24 hr 01/15/23 06:05 01/15/23 08:43 01/15/23 08:45 Temperature 98.8 F 97.4 F L Pulse Rate 98 88 92 Respiratory Rate 16 22 H 21 H Blood Pressure 131/75 127/71 137/80 Pulse Oximetry 99 94 92 Oxygen Delivery Room Air Simple Face Mask Simple Face Mask Oxygen Flow Rate 10 10 01/15/23 09:00 01/15/23 09:15 01/15/23 09:30 Temperature Pulse Rate 110 H 107 H 110 H Respiratory Rate 20 24 H 14 Blood Pressure 137/80 151/69 H 146/97 H Pulse Oximetry 92 100 98 Oxygen Delivery Simple Face Mask Room Air Room Air Oxygen Flow Rate 10 01/15/23 09:34 01/15/23 09:45 01/15/23 10:00 Temperature Pulse Rate 101 H 91 82 Respiratory Rate 16 18 12 Blood Pressure 143/77 H 127/73 109/52 L Pulse Oximetry 95 99 95 Oxygen Delivery Simple Face Mask Simple Face Mask Nasal Cannula Oxygen Flow Rate 10 10 2 01/15/23 10:15 01/15/23 10:26 01/15/23 11:37 Temperature Pulse Rate 110 H 103 H Respiratory Rate 18 23 H Blood Pressure 113/62 121/64 Pulse Oximetry 97 97 100 Oxygen Delivery Nasal Cannula Nasal Cannula Nasal Cannula Oxygen Flow Rate 2 2 2 01/15/23 10:45 01/15/23 11:00 01/15/23 11:18 Temperature 98.1 F 97.7 F 98.4 F Pulse Rate 86 81 72 Respiratory Rate 16 18 18 Blood Pressure 125/82 120/66 129/76 Pulse Oximetry 98 96 96 Oxygen Delivery Oxygen Flow Rate 01/15/23 12:30 01/15/23 15:45 01/15/23 20:18 Temperature 98.2 F 98.4 F 98.3 F Pulse Rate 81 85 100 Respiratory Rate 18 16 16 Blood Pressure 129/58 L 122/52 L 120/64 Pulse Oximetry 94 97 98 Oxygen Delivery Oxygen Flow Rate 01/15/23 20:10 01/15/23 23:24 01/16/23 03:43 Temperature 98.1 F 98.4 F Pulse Rate 100 109 H Respiratory Rate 16 18 Blood Pressure 102/51 L 118/66 Pulse Oximetry 96 97 Oxygen Delivery Room Air Oxygen Flow Rate Intake/Output Intake/Output: Intake & Output 01/13/23 01/14/23 01/15/23 01/16/23 23:59 23:59 23:59 23:59 Intake Total 1150 Output Total 0 Balance 1150 0 Meds/Results Medications: Active Medications Generic Name Dose Route Start Last Admin Trade Name Freq PRN Reason Stop Dose Admin Hydrocodone Bitart/Acetaminophen 1 tab 01/15/23 10:33 Hydrocodone/Acetaminophen (*Crx) 5-325 Mg Tablet PO Q3H PRN Pain Rated 5 or Less Hydrocodone Bitart/Acetaminophen 1 tab 01/15/23 10:33 01/16/23 01:39 Hydrocodone/Acetaminophen (*Crx) 10-325 Mg Tablet PO 1 tab Q3H PRN Administration Pain Rated 6 or Greater Bupropion HCl 150 mg 01/16/23 09:00 Bupropion Hcl Sr (12 Hr) 150 Mg Tab PO DAILY DAGO Docusate Sodium 100 mg 01/15/23 10:33 01/15/23 16:40 Docusate Sodium 100 Mg Capsule PO Not Given BID DAGO Enoxaparin Sodium 40 mg 01/15/23 10:33 01/15/23 11:56 Enoxaparin 40 Mg/0.4 Ml Syringe SUB-Q 40 mg DAILY DAGO Administration Ibuprofen 600 mg 01/15/23 10:33 01/15/23 12:47 Ibuprofen 600 Mg Tablet PO 600 mg Q6H PRN Administration Cramping Ketorolac Tromethamine 30 mg 01/15/23 10:33 01/15/23 21:51 Ketorolac 30 Mg/Ml Vial (*Bkc) IV PUSH 01/20/23 10:32 30 mg Q6H PRN Administration Pain Rated 4-6 Miscellaneous Information 1 each 01/15/23 00:01 At
[2023-01-16 06:25] LABS: Basophils Percent Auto 0.2 % (0.2-1.2); Eosinophils Percent Auto 0.2 % (0-4.4); Hemoglobin 13.6 g/dL (12.0-15.0); Immature Granulocyte Absolute 0.09 K/mm3 (0.00-0.031); Immature Granulocyte Percent A 0.5 % (0-0.5); Lymphocytes Absolute Auto 2.47 K/mm3 (0.9-3.2); Lymphocytes Percent Auto 13.7 % (18.3-44.2); Mean Corpuscular HGB Conc 32.4 g/dl (32-36); Mean Corpuscular Volume 86.6 fl (80-100); Mean Platelet Volume 9.9 fl (7.4-10.4); Monocytes Absolute Auto 1.1 K/mm3 (0.1-0.6); Monocytes Percent Auto 5.8 % (2.6-8.5); Neutrophils Absolute Auto 14.3 K/mm3 (1.3-6.7); Neutrophils Percent Auto 79.6 % (45.5-73.1); Platelet Count Result 316 k/mm3 (150-375); Red Blood Count 4.85 M/mm3 (4.2-5.4); Red Cell Distribution Width 14.7 % (11.5-14.5)
[2023-01-16 06:35] LABS: Estimated CRCL calculation 98 ml/min; Estimated Glomerular Filt Rate > 60
[2023-01-16 08:00] VITALS: O2SAT 95
[2023-01-16] MEDS: KETOROLAC 30 MG/ML VIAL (*BKC) IV PUSH (08:12)
[2023-01-16] MEDS: DOCUSATE SODIUM 100 MG CAPSULE PO (08:13)
[2023-01-16] MEDS: PARoxetine 20 MG TABLET PO (08:13)
[2023-01-16] MEDS: buPROPion HCL SR (12 HR) 150 MG TAB PO (08:13)
[2023-01-16] MEDS: ENOXAPARIN 40 MG/0.4 ML SYRINGE SUB-Q (08:13)
[2023-01-16 08:18] VITALS: BP 114/66; PULSE 118; RESP 18; TEMP 37.3; O2SAT 95
--- NOTE | 2023-01-16 09:56 | WPDANESPN ---
Anes - Prog Note Post-Op Date/Time: 01/16/23 09:56 Cardiovascular status: normal Respiratory status: normal Airway patency: baseline Mental status: baseline Post-Op hydration status: normal Vital Signs: Last Vital Signs Temp 99.1 F 01/16/23 08:18 Pulse 118 H 01/16/23 08:18 Resp 18 01/16/23 08:18 BP 114/66 01/16/23 08:18 Pulse Ox 95 01/16/23 08:18 O2 Del Method Room Air 01/15/23 20:10 O2 Flow Rate 2 01/15/23 11:37 Pain Score (VAS): 10 I/O: Intake & Output 01/15/23 01/16/23 01/16/23 23:59 07:59 15:59 Intake Total 0 240 Output Total 0 Balance 0 0 240 Laboratory Tests 01/16/23 05:53 01/16/23 05:53 01/16/23 05:53 WBC 18.0 H RBC 4.85 Hgb 13.6 Hct 42.0 MCV 86.6 MCH 28.0 MCHC 32.4 RDW 14.7 H Plt Count 316 MPV 9.9 Immature Gran % (Auto) 0.5 Neut % (Auto) 79.6 H Lymph % (Auto) 13.7 L Garvin % (Auto) 5.8 Eos % (Auto) 0.2 Baso % (Auto) 0.2 Lymph # (Auto) 2.47 Garvin # (Auto) 1.1 H Eos # (Auto) 0.0 Baso # (Auto) 0.0 Abs Immat Gran (auto) 0.09 H Absolute Neuts (auto) 14.3 H Absolute Nucleated RBC 0.0 Nucleated RBC % 0.0 Creatinine 1.00 Estim Creat Clear Calc 98 Estimated GFR > 60 Post-procedural complaints: nausea (mild nausea. able to eat & drink without emesis. pt describes pain as off the charts . states up & ambulating without difficulty. discussed alternative pain management such as guided imagery, music & relaxation, heating pads etc) Patient Feedback: Patient satisfied with anesthetic care.
[2023-01-16 12:09] VITALS: BP 139/59; PULSE 114; RESP 18; TEMP 36.7; O2SAT 99
== END 2023-01-16 12:28 | disposition home or self-care (01) ==
LOC: ANHSURGERY 06:03 → ANH3MEDSUR 10:35
PROVIDERS: Visit Provider Obstetrics & Gynecology
PROC: (CPT 58552; principal; 2023-01-15 07:30)
DX: N83.02 Follicular cyst of left ovary (principal); N83.01 Follicular cyst of right ovary; N87.9 Dysplasia of cervix uteri, unspecified; N72 Inflammatory disease of cervix uteri; R10.2 Pelvic and perineal pain; F17.210 Nicotine dependence, cigarettes, uncomplicated; F12.90 Cannabis use, unspecified, uncomplicated; F31.9 Bipolar disorder, unspecified; F41.9 Anxiety disorder, unspecified; F43.10 Post-traumatic stress disorder, unspecified; E66.01 Morbid (severe) obesity due to excess calories; Z68.41 Body mass index [BMI] 40.0-44.9, adult
CPT/HCPCS: 58552; S2900; 36415; 82565; 85025; 86850; 86900; 86901; 88307; A9270; J0690; J1170; J1200; J1650; J1885; J2250; J2270; J2550; J2704; J3010; J7030; J7120; J7121

== ENCOUNTER 2023-09-02 11:10 | Emergency (ER) | payer OTHER, SELFPAY ==
[2023-09-02] VITALS (14 sets, daily range): BP systolic 126–148; BP diastolic 82–95; PULSE 90–114; RESP 13–20; TEMP 36.6; O2SAT 96–100
--- NOTE | ~2023-09-02 | US_ITS ---
Limited ABDOMINAL ULTRASOUND Ordering provider: Parish Regan MD History: . epigastric pain . Comparison: None. FINDINGS: LIVER: Normal size and echotexture. No focal hepatic lesions or perihepatic fluid collections are priya ntified. Portal vein flow is normal. GALLBLADDER: Unremarkable. No evidence for stones, sludge, gallbladder wall thickening or pericholecy stic fluid collections. A negative sonographic Hanna's sign was noted. Wall thickness is 0.3 cm. BILIARY DUCTS: No evidence for intra or extrahepatic biliary dilation. Common bile duct measures 3.3 mm in diameter which is within normal limits. PANCREAS: Tail is poorly visualized. UPPER ABDOMINAL AORTA: Normal in caliber. IVC: Patent. FREE FLUID: None. IMPRESSION: 1. Unremarkalbe Limited ultrasound of the abdomen. Reviewed, dictated and finalized at location A.
[2023-09-02 11:30] LABS: Basophils Percent Auto 0.4 % (0.2-1.2); Eosinophils Absolute Auto 0.1 K/mm3 (0-0.3); Eosinophils Percent Auto 0.4 % (0-4.4); Hematocrit 49.6 % (37.0-47.0); Hemoglobin 16.2 g/dL (12.0-15.0); Immature Granulocyte Absolute 0.04 K/mm3 (0.00-0.031); Immature Granulocyte Percent A 0.4 % (0-0.5); Lymphocytes Absolute Auto 3.55 K/mm3 (0.9-3.2); Lymphocytes Percent Auto 31.9 % (18.3-44.2); Mean Corpuscular HGB Conc 32.7 g/dl (32-36); Mean Corpuscular Hemoglobin 27.2 pg (26-34); Mean Corpuscular Volume 83.4 fl (80-100); Mean Platelet Volume 9.4 fl (7.4-10.4); Monocytes Absolute Auto 0.7 K/mm3 (0.1-0.6); Monocytes Percent Auto 6.1 % (2.6-8.5); Neutrophils Absolute Auto 6.8 K/mm3 (1.3-6.7); Neutrophils Percent Auto 60.8 % (45.5-73.1); Platelet Count Result 413 k/mm3 (150-375); Red Blood Count 5.95 M/mm3 (4.2-5.4); White Blood Count 11.1 K/mm3 (4.5-10.0)
[2023-09-02 11:41] LABS: Alanine Aminotransferase 27 U/L (6-35); Albumin Level 4.7 g/dL (3.5-5.1); Alkaline Phosphatase 69 U/L (38-126); Anion Gap 8 mmol/L (4-12); Aspartate Amino Transferase 28 U/L (14-36); Bilirubin,Total 0.7 mg/dL (0.2-1.3); Blood Urea Nitrogen 15 mg/dL (7-17); Calcium 9.9 mg/dL (8.4-10.2); Carbon Dioxide 25 mmol/L (22-30); Chloride 106 mmol/L (98-107); Estimated CRCL calculation 121 ml/min; Estimated Glomerular Filt Rate > 60; Glucose 96 mg/dL (65-110); Lipase 52 U/L (23-300); Potassium 4.2 mmol/L (3.4-5.0); Sodium 139 mmol/L (137-145)
[2023-09-02 11:59] LABS: Appearance Urine Clear (Clear); Bacteria Urine Rare /hpf; Bilirubin Urine Negative (Negative); Blood Urine 1+ (Negative); Color Urine Yellow (Yellow); Glucose Urine UA Negative (Negative); Ketones Urine Negative (Negative); Leukocyte Esterase Ur Negative LEU/UL (Negative); Nitrate Urine Negative (Negative); Non Pathogenic Casts 0-2; Protein Urine Negative (Negative); Specific Grav Ur 1.018 (1.001-1.035); Squamous Epithelial Cell Urine Occasional /hpf (Few); WBC Urine 0-5 /hpf (0-3)
[2023-09-02 12:07] LABS: Add Urine Microscopic? YES
--- NOTE | 2023-09-02 12:24 | ED.ABDPAIN ---
HPI - Abdominal Pain General Chief Complaint: Abdominal Pain Stated Complaint: feeling unwell, gallbladder issues Time Seen by Provider: 09/02/23 11:56 History of Present Illness HPI narrative: 23-year-old transitioned male presenting to the emergency department for evaluation of epigastric abdominal pain that does radiate to they are back. Patient did have follow-up with their primary care physician and an outpatient ultrasound was ordered. While the patient was getting the ultrasound they had increased abdominal pain. They were referred to the emergency department for evaluation. Patient does complain of pain and nausea. Related Data Home Medications Medication Instructions Recorded Confirmed paroxetine HCl 20 mg tablet 20 mg PO QAM 11/06/21 01/15/23 risperidone 2 mg tablet 2 mg PO HS 11/06/21 01/15/23 aripiprazole 400 mg intramuscular 400 mg IM MONTHLY 01/01/23 01/15/23 suspension,extended release (Abilify Maintena) atomoxetine 60 mg capsule 60 mg PO DAILY 01/01/23 01/15/23 bupropion HCl 150 mg tablet,12 hr 150 mg PO DAILY 01/01/23 01/15/23 sustained-release hydrocodone 5 mg-acetaminophen 325 1 tablet PO Q6H PRN Pain 01/01/23 01/15/23 mg tablet testosterone cypionate 200 mg/mL 100 mg subcut WEEKLY 01/01/23 01/15/23 intramuscular oil Allergies Allergy/AdvReac Type Severity Reaction Status Date / Time banana Allergy Severe Anaphylaxis Verified 09/02/23 11:20 cranberry Allergy Severe Hives Verified 09/02/23 11:20 pineapple Allergy Severe Anaphylaxis Verified 09/02/23 11:20 adhesive tape Allergy Mild Rash Verified 09/02/23 11:20 minor Allergy Mild Rash Verified 09/02/23 11:20 latex Allergy Mild Rash Verified 09/02/23 11:20 blackberry Allergy Dyspnea / Verified 09/02/23 11:20 SOB methylprednisolone Allergy Rash Verified 09/02/23 11:20 tizanidine Allergy Rash Verified 09/02/23 11:20 ondansetron [From Zofran] AdvReac Other Verified 09/02/23 11:20 Review of Systems Review of Systems: All systems reviewed & are unremarkable except as noted in HPI and below PMFSH Past Medical History Medical History Anxiety Bipolar disorder Depression with anxiety History of asthma Hx of migraines Neuropathy Pseudoseizures PTSD (post-traumatic stress disorder) Surgical History Surgical History History of dilatation and curettage History of tonsillectomy and adenoidectomy Medicine Bow teeth extracted Social History Social History Smoking packs per day: 1 Smoking cigarettes per day: 20.0 Years smoked: 15 Smoking pack-years: 15.00 Smoking status: Current every day smoker Additional smoking assessment comments: vapes Alcohol intake: current Drinks per week: 2 Alcohol use details: 37 days no alcohol use Substance use: current Substance use type: marijuana Other substance usage details: every day or two. Last use: last use of methamphetamine 6 months ago, last use of heroin 2 years ago Lack of Transportation: No Lack of Food: Never True Current Housing: I Have Housing Concerned About Future Housing: No Difficulty Paying Gas/Electric Bills: No Difficulty Paying for Meds: No Currently Unemployed: No Education: High School Diploma/GED Difficulty w/ Childcare or Family Care: No Living arrangements: with family Gender identity (if verbalized by the patient): Male Additional gender identity comments: has not taken any hormones at this time for transgender to male Sexual Orientation (if Verbalized by the Patient): Bisexual Spiritual care concerns: No Exam Narrative: APPEARANCE: Well appearing, no pain, no distress, well-nourished. HEAD: normocephalic, atraumatic. EYES: PERRLA/EOMI, conjunctivae clear. NOSE: Normal no drainage NECK: Supple. No adenopathy, no masses. RESPIRATORY: Airway pat
[2023-09-02 12:28] LABS: Glucose Point of Care 106 mg/dl (65-105)
[2023-09-02] MEDS: HYDROmorphone HCL INJ (*CRX) 1 MG/ML SYR 0.5 MG IV PUSH (12:29)
[2023-09-02] MEDS: ONDANSETRON INJ 4 MG/2 ML VIAL IV PUSH (12:29)
[2023-09-02] MEDS: SODIUM CHLORIDE 0.9% IV 1,000 ML 999 ML IV CONT (12:33)
--- NOTE | 2023-09-02 12:36 | PC.NURSE ---
patient reports having a hysterectomy last year and is taking testosterone injections weekly
== END 2023-09-02 13:49 | disposition home or self-care (01) ==
PROVIDERS: Emergency Medicine; Emergency Provider Emergency Medicine
DX: R10.13 Epigastric pain (principal); J45.909 Unspecified asthma, uncomplicated; G62.9 Polyneuropathy, unspecified; F31.9 Bipolar disorder, unspecified; F41.8 Other specified anxiety disorders; F43.10 Post-traumatic stress disorder, unspecified; F17.290 Nicotine dependence, other tobacco product, uncomplicated; Z79.899 Other long term (current) drug therapy; Z79.890 Hormone replacement therapy
CPT/HCPCS: 36415; 76705; 80053; 81001; 82948; 83690; 85025; 96361; 96374; 96375; 99284; J1170; J2405; J7030